=== PATIENT | female | born 1980 | race Hispanic/Latino ===

== ENCOUNTER 2017-11-24 04:16 | Emergency (ER) | payer OTHER ==
--- NOTE | 2017-11-24 04:45 | ER ---
Nurse's Notes [facility] Name: Puja Le Age: 37 yrs Sex: Female : 1980 Arrival Date: 11/24/2017 Time: 04:17 Bed 4 Private MD: Diagnosis: End stage renal disease Presentation: 11/24 04:28 Presenting complaint: Patient states: SOB since 0100. pt stated she was out of town ak1 yesterday and missed dialysis. Transition of care: patient was not received from another setting of care. Onset of symptoms was November 24, 2017. Risk Assessment: Do you want to hurt yourself or someone else? Patient reports no desire to harm self or others. Initial Sepsis Screen: Does the patient meet any 2 criteria? No. Patient's initial sepsis screen is negative. Does the patient have a suspected source of infection? No. Patient's initial sepsis screen is negative. Care prior to arrival: None. 04:28 Method Of Arrival: Wheelchair ak1 04:28 Acuity: KATHRYN 3 ak1 Triage Assessment: 04:31 General: Appears in no apparent distress. Behavior is calm, cooperative. Pain: Denies ak1 pain. EENT: No signs and/or symptoms were reported regarding the EENT system. Neuro: Level of Consciousness is awake, alert, obeys commands, Oriented to person, place, time, situation, [place] are equal bilaterally Moves all extremities. Gait is steady, Speech is normal. Cardiovascular: No deficits noted. Respiratory: Reports shortness of breath at rest Airway is patent Onset: The symptoms/episode began/occurred this morning, the patient has mild shortness of breath. GI: No signs and/or symptoms were reported involving the gastrointestinal system. : No signs and/or symptoms were reported regarding the genitourinary system. Derm: No signs and/or symptoms reported regarding the dermatologic system. Musculoskeletal: No signs and/or symptoms reported regarding the musculoskeletal system. 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 - Social history:: Smoking status: Patient/guardian denies using tobacco. - Ebola Screening: : No symptoms or risks identified at this time. - Family history:: not pertinent. - Hospitalizations: : No recent hospitalization is reported. Screenin:34 Abuse screen: Denies threats or abuse. Denies injuries from another. Nutritional ak1 screening: No deficits noted. Tuberculosis screening: No symptoms or risk factors identified. Fall Risk None identified. Assessment: 04:33 Respiratory: Respiratory effort is even, unlabored. ak1 04:40 Cardiovascular: Rhythm is regular. Respiratory: Airway is patent Breath sounds are ak1 clear. 04:40 Reassessment: Patient appears in no apparent distress at this time. No changes from ak1 previously documented assessment. pt dialysis center has availability at 0500 this morning for her to be seen. Vital Signs: 04:27 BP 131 / 85; Pulse 88; Resp 20; Temp 98.4; Pulse Ox 96% on R/A; Weight 83.91 kg (R); ak1 Height 5 ft. 0 in. (152.40 cm) (R); Pain 0/10; 04:27 Body Mass Index 36.13 (83.91 kg, 152.40 cm) ak1 ED Course: 04:17 Patient arrived in ED. ds1 04:27 Arm band placed on Patient placed in an exam room, on a stretcher, on pulse oximetry, ak1 Patient notified of wait time. 04:29 Gennaro Abbott MD is Attending Physician. rn 04:30 Triage completed. ak1 04:34 Patient has correct armband on for positive identification. Bed in low position. Call ak1 light in reach. Side rails up X 1. Pulse ox on. NIBP on. 04:40 Adrianna Mejía, RN is Primary Nurse. ak1 04:40 No provider procedures requiring assistance completed. Patient did not have IV access ak1 during this emergency room visit. Administered Medications: No medications were administered Outcome: 04:40 Condition: stable ak1 04:44 Discharge ordered by . rn 04:57 Discharged to home ambulatory, with family. ak1 04:57 Discharge instructions given to patient, Instructed on discharge instructions, follow up and referral plans. Demonstrated understanding of instructions, follow-up care. 04:57 Patient left the ED. ak1 Signatures: Seema Weber ds1 Gennaro Abbott MD MD rn Adrianna Mejía, RN RN ak1
--- NOTE | 2017-11-24 04:45 | EDPHYS ---
Physician Documentation [facility] Name: Puja Le Age: 37 yrs Sex: Female : 1980 Arrival Date: 11/24/2017 Time: 04:17 Bed 4 Private MD: ED Physician Gennaro Abbott HPI: 11/24 04:40 This 37 yrs old Female presents to ER via Wheelchair with complaints of rn Shortness Of Breath. 04:40 The patient has shortness of breath with light activity. Onset: The symptoms/episode rn began/occurred today. Duration: The symptoms are intermittent. Severity of symptoms: At their worst the symptoms were mild in the emergency department the symptoms are unchanged. The patient has experienced similar episodes in the past. Reports went out of town, missed dialysis yesterday, feels a little sob, no fever/cough, wasn't able to get into dialysis because full yesterday, thought she could come here for dialysis. . 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 - Social history:: Smoking status: Patient/guardian denies using tobacco. - Ebola Screening: : No symptoms or risks identified at this time. - Family history:: not pertinent. - Hospitalizations: : No recent hospitalization is reported. ROS: 04:40 Constitutional: Negative for fever, chills, and weight loss, Eyes: Negative for injury, rn pain, redness, and discharge, Neck: Negative for injury, pain, and swelling, Cardiovascular: Negative for chest pain, palpitations, and edema, Respiratory: Negative for cough, wheezing, and pleuritic chest pain, Abdomen/GI: Negative for abdominal pain, nausea, vomiting, diarrhea, and constipation, MS/Extremity: Negative for injury and deformity, Neuro: Negative for headache, numbness, tingling, and seizure. Exam: 04:40 Constitutional: This is a well developed, well nourished patient who is awake, alert, rn and in no acute distress. Head/Face: Normocephalic, atraumatic. Eyes: Pupils equal round and reactive to light, extra-ocular motions intact. Lids and lashes normal. Conjunctiva and sclera are non-icteric and not injected. Cornea within normal limits. Periorbital areas with no swelling, redness, or edema. Cardiovascular: Regular rate and rhythm with a normal S1 and S2. No gallops, murmurs, or rubs. Normal PMI, no JVD. No pulse deficits. Respiratory: Lungs have equal breath sounds bilaterally, clear to auscultation and percussion. No rales, rhonchi or wheezes noted. No increased work of breathing, no retractions or nasal flaring. Neuro: Awake and alert, GCS 15, oriented to person, place, time, and situation. Cranial nerves II-XII grossly intact. Motor strength 5/5 in all extremities. Sensory grossly intact. Cerebellar exam normal. Normal gait. Vital Signs: 04:27 BP 131 / 85; Pulse 88; Resp 20; Temp 98.4; Pulse Ox 96% on R/A; Weight 83.91 kg (R); ak1 Height 5 ft. 0 in. (152.40 cm) (R); Pain 0/10; 04:27 Body Mass Index 36.13 (83.91 kg, 152.40 cm) ak1 MDM: 04:29 Patient medically screened. rn 04:40 Differential diagnosis: pulmonary edema. Data reviewed: vital signs, nurses notes. rn 04:42 Counseling: I had a detailed discussion with the patient and/or guardian regarding: the rn historical points, exam findings, and any diagnostic results supporting the discharge/admit diagnosis, the need for outpatient follow up, to return to the emergency department if symptoms worsen or persist or if there are any questions or concerns that arise at home. ED course: Pt got a call from dialysis stating that they have a chair available for her at dialysis center at 0500 ( 17 min), gave patient option, she chooses to leave and get dialysis at her regular dialysis center.. Administered Medications: No medications were administered Disposition: 11/24/17 04:44 Discharged to Home. Impression: End stage renal disease. - Condition is Stable. - Discharge Instructions: End-Stage Kidney Disease. - Medication Reconciliation Form, Thank You Letter, Antibiotic Education, Prescription Opioid Use form. - Follow up: Private Physician; When: As needed; Reason: Recheck today's complaints, Re-evaluation by your physician. - Problem is new. - Symptoms have improved. Signatures: Gennaro Abbott MD MD rn Krenek, Amber, RN RN ak1 Corrections: (The following items were deleted from the chart) 04:57 04:44 11/24/2017 04:44 Discharged to Home. Impression: End stage renal disease. ak1 Condition is Stable. Forms are Medication Reconciliation Form, Thank You Letter, Antibiotic Education, Prescription Opioid Use. Follow up: Private Physician; When: As needed; Reason: Recheck today's complaints, Re-evaluation by your physician. Problem is new. Symptoms have improved. rn
== END 2017-11-24 04:57 | disposition home or self-care (01) ==
LOC: ER 04:16
DX: I12.0 Hypertensive chronic kidney disease with stage 5 chronic kidney disease or end stage renal disease (principal); N18.6 End stage renal disease; Z88.8 Allergy status to other drugs, medicaments and biological substances
CPT/HCPCS: 99283

== ENCOUNTER 2018-01-18 06:09 | Emergency (ER) | payer OTHER ==
[2018-01-18 07:45] LABS: Absolute Monocytes 0.5 K/uL (0.1-1.3); Basophils % 0.4 % (0-1.3); Eosinophils % 2.6 % (0-4.4); Hematocrit 29.5 % (36.0-45.0); Lymphocytes % 9.6 % (15.3-44.8); MCH 31.8 pg (27.0-35.0); MCV 91.1 fL (80-100); MPV 8.2 fL (7.6-11.3); Monocytes % 4.6 % (3.3-12.3); RBC Red Blood Cell Count 3.24 M/uL (3.86-4.86)
[2018-01-18 08:33] LABS: Albumin 3.4 g/dL (3.4-5.0); Bilirubin Direct 0.2 mg/dL (0-0.2); Bilirubin Total 0.6 mg/dL (0.2-1.0); Magnesium 2.7 mg/dL (1.8-2.4); Phosphorus 8.4 mg/dL (2.5-4.9); Potassium 4.9 mmol/L (3.5-5.1); Thyroid Stimulating Hormone 14.5 uIU/mL (0.36-3.74)
--- NOTE | 2018-01-18 09:00 | ER ---
Nurse's Notes [facility] Name: Puja Le Age: 37 yrs Sex: Female : 1980 Arrival Date: 01/18/2018 Time: 06:13 Bed 5 Private MD: Andre Thakur Diagnosis: Hypothyroidism, unspecified;Unspecified abdominal pain Presentation: 01/18 06:24 Presenting complaint: Patient states: she went to dialysis this morning and was c/o bb stomach cramping so they sent her to ED. Transition of care: patient was not received from another setting of care. Onset of symptoms was January 18, 2018 at 05:30. Risk Assessment: Do you want to hurt yourself or someone else? Patient reports no desire to harm self or others. Initial Sepsis Screen: Does the patient meet any 2 criteria? No. Patient's initial sepsis screen is negative. Does the patient have a suspected source of infection? No. Patient's initial sepsis screen is negative. Care prior to arrival: None. 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 - Social history:: Smoking status: Patient/guardian denies using tobacco, Patient/guardian denies using alcohol, street drugs. - Ebola Screening: : No symptoms or risks identified at this time. Screenin:28 Abuse screen: Denies threats or abuse. Denies injuries from another. Nutritional lp1 screening: No deficits noted. Tuberculosis screening: No symptoms or risk factors identified. Fall Risk None identified. Assessment: 06:25 General: Appears in no apparent distress. Behavior is calm, cooperative, appropriate lp1 for age. Pain: Complains of pain in left upper quadrant. Neuro: Level of Consciousness is awake, alert, obeys commands. Cardiovascular: Patient's skin is warm and dry. Dialysis shunt: in the left bicep. Respiratory: Respiratory effort is even, unlabored, Breath sounds are clear bilaterally. GI: Abdomen is non-distended, Bowel sounds present X 4 quads. Patient currently denies diarrhea, nausea, vomiting. : No signs and/or symptoms were reported regarding the genitourinary system. EENT: No signs and/or symptoms were reported regarding the EENT system. Derm: Skin is pink, warm \T\ dry. Musculoskeletal: Circulation, motion, and sensation intact. 07:30 Reassessment: Patient appears in no apparent distress at this time. No changes from tw2 previously documented assessment. Patient and/or family updated on plan of care and expected duration. Pain level reassessed. Patient is alert, oriented x 3, equal unlabored respirations, skin warm/dry/pink. 08:28 Reassessment: Patient appears in no apparent distress at this time. No changes from tw2 previously documented assessment. Patient and/or family updated on plan of care and expected duration. Pain level reassessed. Patient is alert, oriented x 3, equal unlabored respirations, skin warm/dry/pink. 09:03 Reassessment: Patient appears in no apparent distress at this time. No changes from tw2 previously documented assessment. Patient and/or family updated on plan of care and expected duration. Pain level reassessed. Patient is alert, oriented x 3, equal unlabored respirations, skin warm/dry/pink. Vital Signs: 06:26 BP 143 / 79; Pulse 96; Resp 16 S; Temp 98.9(O); Pulse Ox 96% on R/A; Weight 83.91 kg bb (R); Height 5 ft. 0 in. (152.40 cm) (R); Pain 8/10; 07:40 BP 136 / 83; Pulse 79; Resp 17; Pulse Ox 96% on R/A; tw2 08:27 BP 137 / 88; Pulse 80; Resp 17; Pulse Ox 95% on R/A; tw2 09:03 BP 146 / 89; Pulse 82; Resp 16; Pulse Ox 95% on R/A; tw2 06:26 Body Mass Index 36.13 (83.91 kg, 152.40 cm) ED Course: 06:13 Patient arrived in ED. al2 06:13 Andre Thakur DO is Private Physician. al2 06:21 Padmini Saxena FNP-C [facility]. snw 06:21 Julio Shukla MD is Attending Physician. snw 06:23 Trista Dubose, RN is Primary Nurse. lp1 06:25 Triage completed. bb 06:26 Arm band placed on Patient placed in an exam room, on a stretcher, on pulse oximetry. bb 06:28 Patient has correct armband on for positive identification. Placed in gown. Bed in low lp1 position. Call light in reach. Pulse ox on. NIBP on. 07:30 Inserted saline lock: 22 gauge in right antecubital area, using aseptic technique. tw2 Blood collected. 07:39 TS Sent. tw2 07:40 Primary Nurse role handed off by Trista Dubose, RN tw2 07:40 Kiley Hayes, BRIAN is Primary Nurse. tw2 08:59 Andre Thakur DO is Referral Physician. snw 09:21 No provider procedures requiring assistance completed. IV discontinued, intact, tw2 bleeding controlled, No redness/swelling at site. Pressure dressing applied. Administered Medications: No medications were administered Outcome: 09:00 Discharge ordered by . snw 09:21 Discharged to home ambulatory. tw2 09:21 Condition: stable 09:21 Discharge instructions given to patient, Instructed on discharge instructions, follow up and referral plans. medication usage, Demonstrated understanding of instructions, follow-up care, medications, Prescriptions given X 2. 09:22 Patient left the ED. tw2 Signatures: Padmini Saxena, SETTER OUT-C SETTER OUT-Csnw Delia Guido, RN RN bb Trista Dubose, RN RN lp1 Kiley Hayes RN RN tw2 Kady Mccullough
--- NOTE | 2018-01-18 09:01 | EDPHYS ---
Physician Documentation [facility] Name: Puja Le Age: 37 yrs Sex: Female : 1980 Arrival Date: 01/18/2018 Time: 06:13 Bed 5 Private MD: Andre Thakur ED Physician Julio Shukla HPI: 01/18 08:11 This 37 yrs old Female presents to ER via Ambulatory with complaints of snw STOMACH CRAMPING. 08:11 The patient presents with abdominal pain that is diffuse. Onset: The symptoms/episode snw began/occurred gradually. The symptoms do not radiate. Associated signs and symptoms: none. The symptoms are described as crampy. Severity of pain: At its worst the pain was moderate. The patient has experienced similar episodes in the past. Pt sees Dr. Thakur for dialysis, appt with GI tomorrow. Dialysis , , Sat. 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 - Social history:: Smoking status: Patient/guardian denies using tobacco, Patient/guardian denies using alcohol, street drugs. - Ebola Screening: : No symptoms or risks identified at this time. ROS: 08:11 Constitutional: Negative for fever, chills, and weight loss, Eyes: Negative for injury, snw pain, redness, and discharge, ENT: Negative for injury, pain, and discharge, Neck: Negative for injury, pain, and swelling, Cardiovascular: Negative for chest pain, palpitations, and edema, Respiratory: Negative for shortness of breath, cough, wheezing, and pleuritic chest pain, Back: Negative for injury and pain, MS/Extremity: Negative for injury and deformity, Skin: Negative for injury, rash, and discoloration, Neuro: Negative for headache, weakness, numbness, tingling, and seizure. 08:11 Abdomen/GI: Positive for abdominal cramps. 08:11 : Positive for vaginal bleeding. Exam: 07:10 Head/Face: Normocephalic, atraumatic. Eyes: Pupils equal round and reactive to light, snw extra-ocular motions intact. Lids and lashes normal. Conjunctiva and sclera are non-icteric and not injected. Cornea within normal limits. Periorbital areas with no swelling, redness, or edema. ENT: Nares patent. No nasal discharge, no septal abnormalities noted. Tympanic membranes are normal and external auditory canals are clear. Oropharynx with no redness, swelling, or masses, exudates, or evidence of obstruction, uvula midline. Mucous membranes moist. Neck: Trachea midline, no thyromegaly or masses palpated, and no cervical lymphadenopathy. Supple, full range of motion without nuchal rigidity, or vertebral point tenderness. No Meningismus. Chest/axilla: Normal chest wall appearance and motion. Nontender with no deformity. No lesions are appreciated. 07:10 Respiratory: Lungs have equal breath sounds bilaterally, clear to auscultation and percussion. No rales, rhonchi or wheezes noted. No increased work of breathing, no retractions or nasal flaring. Back: No spinal tenderness. No costovertebral tenderness. Full range of motion. MS/ Extremity: Pulses equal, no cyanosis. Neurovascular intact. Full, normal range of motion. Neuro: Awake and alert, GCS 15, oriented to person, place, time, and situation. Cranial nerves II-XII grossly intact. Motor strength 5/5 in all extremities. Sensory grossly intact. Cerebellar exam normal. Normal gait. Psych: Awake, alert, with orientation to person, place and time. Behavior, mood, and affect are within normal limits. 07:10 Constitutional: The patient appears alert, awake, pale. 07:10 Cardiovascular: Rate: tachycardic, Rhythm: regular. 07:10 Abdomen/GI: Inspection: obese Bowel sounds: diminished, Palpation: mild abdominal tenderness, crampy, organomegaly is appreciated. Vital Signs: 06:26 BP 143 / 79; Pulse 96; Resp 16 S; Temp 98.9(O); Pulse Ox 96% on R/A; Weight 83.91 kg bb (R); Height 5 ft. 0 in. (152.40 cm) (R); Pain 8/10; 07:40 BP 136 / 83; Pulse 79; Resp 17; Pulse Ox 96% on R/A; tw2 08:27 BP 137 / 88; Pulse 80; Resp 17; Pulse Ox 95% on R/A; tw2 09:03 BP 146 / 89; Pulse 82; Resp 16; Pulse Ox 95% on R/A; tw2 06:26 Body Mass Index 36.13 (83.91 kg, 152.40 cm) bb MDM: 06:21 Patient medically screened. snw 09:02 Data reviewed: vital signs, nurses notes. Data interpreted: Pulse oximetry: on room air snw is 95 %. Interpretation: acceptable. Counseling: I had a detailed discussion with the patient and/or guardian regarding: the historical points, exam findings, and any diagnostic results supporting the discharge/admit diagnosis, the presence of at least one elevated blood pressure reading (>120/80) during this emergency department visit, lab results, the need for outpatient follow up, to return to the emergency department if symptoms worsen or persist or if there are any questions or concerns that arise at home. 01/18 07:06 Order name: Basic Metabolic Panel; Complete Time: 08:57 snw 01/18 07:06 Order name: CBC with Diff; Complete Time: 08:01 snw 01/18 07:06 Order name: Hepatic Function; Complete Time: 08:57 snw 01/18 07:06 Order name: Lipase; Complete Time: 08:57 snw 01/18 07:06 Order name: Magnesium; Complete Time: 08:57 snw 01/18 07:06 Order name: IV Saline Lock; Complete Time: 07:39 snw 01/18 07:06 Order name: Labs collected and sent; Complete Time: 07:39 snw 01/18 07:06 Order name: Phosphorus; Complete Time: 08:57 snw 01/18 07:06 Order name: TS; Complete Time: 08:57 snw 01/18 07:06 Order name: TSH; Complete Time: 08:57 snw 01/18 08:36 Order name: T4 Free; Complete Time: 08:57 EDMS 01/18 08:47 Order name: ABO/RH no charge; Complete Time: 08:57 EDMS 01/18 07:06 Order name: Urine Dipstick-Ancillary (obtain specimen); Complete Time: 09:09 snw Administered Medications: No medications were administered Disposition: 01/18/18 09:00 Discharged to Home. Impression: Hypothyroidism, unspecified, Unspecified abdominal pain. - Condition is Stable. - Discharge Instructions: Abdominal Pain, Adult, Hypertension, Hypothyroidism. - Prescriptions for Synthroid 100 mcg Oral tablet - take 30 tablet by ORAL route once daily; 30 tablet. Bentyl 20 mg Oral Tablet - take 1 tablet by ORAL route every 6 hours As needed; 20 tablet. - Medication Reconciliation Form, Thank You Letter, Antibiotic Education, Prescription Opioid Use form. - Follow up: Andre Thakur DO; When: Today; Reason: Recheck today's complaints, Continuance of care, Re-evaluation by your physician. Follow up: Emergency Department; When: As needed; Reason: Worsening of condition. Signatures: Dispatcher [employer] EDMS Padmini Saxena, LASHELL-C BRONZER-Csnw Delia Guido, RN RN bb Kiley Hayes RN RN tw2 Corrections: (The following items were deleted from the chart) 09: 09:00 01/18/2018 09:00 Discharged to Home. Impression: Hypothyroidism, unspecified; tw2 Unspecified abdominal pain. Condition is Stable. Forms are Medication Reconciliation Form, Thank You Letter, Antibiotic Education, Prescription Opioid Use. Follow up: Andre Thakur; When: Today; Reason: Recheck today's complaints, Continuance of care, Re-evaluation by your physician. Follow up: Emergency Department; When: As needed; Reason: Worsening of condition. snw
== END 2018-01-18 09:22 | disposition home or self-care (01) ==
LOC: ER 06:09
DX: E03.9 Hypothyroidism, unspecified (principal); I10 Essential (primary) hypertension; Z99.2 Dependence on renal dialysis; Z88.8 Allergy status to other drugs, medicaments and biological substances
CPT/HCPCS: 36415; 80048; 80076; 83690; 83735; 84100; 84439; 84443; 85025; 86850; 86900; 86901; 99284

== ENCOUNTER 2018-12-05 12:53 | Inpatient (IN) | payer OTHER ==
--- OUTSIDE RECORDS SUMMARY | 2018-12-05 12:57 | XMS REPORT | Continuity of Care Document ---
:1980 Author Organization Interface Problems Problem Status Onset Classification Date Comments Source Date Reported NEW EVALUATION Active 10/15/[address] RENAL/DO NOT USE Active 09/15/19 [facility] FOR CHARGES F/C 19 Medical NOTES O Center CHF (<span Resolved Problem 11/19/2018 [facility] ID="[id number]"> Medical Confirmed</span>) Center Hypertension Resolved Problem 11/19/2018 [facility] Hyperthyroidism Resolved Problem 11/19/2018 [facility] Pleural effusion Resolved Problem 11/19/2018 [facility] 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 [facility] Restless leg Resolved Problem 11/19/2018 [facility] syndrome [facility] Medications Medication Details Route Status Patient Ordering Order Source Instructions Provider Date Allergies, Adverse Reactions, Alerts Substance Category Reaction Severity Reaction Status Date Comments Source type Reported vancomycin Assertion Drug Active [facility] Zosyn Assertion Drug Active [facility] Immunizations Immunization Date Given Site Status Last Updated Comments Source Results Order Name Results Value Reference Date Interpretation Comments Source Range HEMATOLOGY AT III Ag 132 % 72 - 124 10/19 Result Comment: This test was developed and its performance characteristics determined by [facility]. It has not been cleared or Medical approved by the Food and Drug Administration. Center Performed At: [address] [id number] Ezequiel Cornejo MD Ph:[phone] HEMATOLOGY MTHFR DNA Comment 10/19 Result Comment: [facility] Result: NEGATIVE (No mutation identified) Medical Analysis Interpretation: Center This patient's sample was analyzed for the MTHFR mutations C677T and R7511E. No mutation was identified. The diagnosis of hyperhomocysteinemia can not rely on testing alone but should take into consideration clinical findings and other studies, such as serum homocysteine levels. Methylenetetrahydrofolate reductase (MTHFR) is a tamayo enzyme in the folate pathway and is responsible for the metabolism of homocysteine. There are two common variants in the MTHFR gene, c.655c>T (p.Jto024Trgw), referred to as C677T, and c.1286A>C (p.Mkd843Rmu), referred to as K7390Z. Individuals homozygous for C677T (two copies of the variant), have decreased activity of the MTHFR enzyme and a predisposition to hyperhomocysteinemia, particularly when deficient in folate. Hyperhomocysteinemia is a risk factor for venous thrombosis and coronary artery disease and is associated with an increased risk of open neural tube defects. The C677T variant does not independently increase risk of these conditions in the absence of hyperhomocysteinemia. The T2494Q variant is not associated with elevated homocysteine levels unless a C677T variant is also present ; however, the clinical significance of heterozygosity for both C677T and I9689P is controversial. Population data suggest that these two variants are not present on the same chromosome, but rare exceptions have been reported of triple variant MTHFR genotypes (ie. homozygous for one variant and heterozygous for the other). Homozygosity for C677T has an estimated frequency of 10% to 15% in Caucasians and 25 % in Hispanics. Additional information: Dietary folic acid, B6 and B12 supplementation has been suggested to lower homocysteine levels in some people. Folic acid supplementation has been shown to reduce the occurrence of neural tube defects. Genetic counselors are available for health care providers to discuss results at [phone] Methodology: DNA analysis of the MTHFR gene was performed by PCR amplification followed by restriction analysis. The diagnostic sensitivity is >99% for both. Molecular-based testing is highly accurate, but as in any laboratory test, rare diagnostic errors may occur. All test results must be combined with clinical information for the most accurate interpretation. This test was developed and its performance characteristics determined by [facility]. It has not been cleared or approved by the Food and Drug Administration. References: Fawad LD, Gale Q. Am J Epidemiol 2000; 151(9):862-877. Honey MM, Kavya JA. Arch Pathol Lab Med 2007; 131(6):872-884. Frosst P et al. Monica Cristin 1995; 10(1):111-113. Kezia SE et al. Cristin Med 2013; 15(2):153-156. Boise C et al. Obstet Gynecol 2011; 118(3):730-740. Bradley Arias et al. Eur J Epidemiol 2013; 28(8):621-647. Nilda Oliveira, PhD, FACMG Princess Meyer, PhD, FACMG Samantha Whipple M.S., PhD, FACMG Yael Nicholson, PhD, FACMG Marc Campos, PhD, FACMG Forrest Shelley, PhD, FACMG Performed At: [facility] [id number] [employer] [address] [id number] Luna Barrientos MD Ph:[phone] HEMATOLOGY Protein S Tot 113 % 60 - 150 10/19 Result Comment: This test was developed and its performance characteristics determined by [facility]. It has not been cleared or Medical approved by the Food and Drug Administration. Center Performed At: [address] [id number] Ezequiel Cornejo MD Ph:[phone] HEMATOLOGY Hex Phos N Negative Negative 10/19 [facility] (10/19/18 8:19 AM) [facility] HEMATOLOGY Lup Interp Negative 10/19 [facility] lupus Medical anticoagul Center ant with all tests performed (dRVVT, and hexagonal phospholip id neutraliza tion). CPT: 39132 HEMATOLOGY dRVV Ratio 1.12 <=1.20 10/19 [facility] HEMATOLOGY Protein C Tot 101 % 60 - 150 10/19 Result Comment: Performed At: [facility] [address] [place] [id number] [facility] Ezequiel Cornejo MD Ph:[phone] [facility] HEMATOLOGY F2 Mutation Negative 10/19 [place] [facility] (10/19/18 8:19 AM) Center HEMATOLOGY F2 Mut Interp FACTOR II 10/19 [facility] PT: /2018 Medical NegativeIN Center TERPRETATI ON:Molecul ar analysis for the Factor II (Prothromb in) 52489Q>A mutation is negative. Other causes of elevated prothrombi n levels and hereditary forms of venous thrombosis are not ruled out.The test result must be interprete d along with the patients clinical history and relevant laboratory data. Where appropriat e, medical consultati on and genetic counseling should be offered to inform and explain the risk implicatio ns and genetic implicatio nsASSAY LIMITATION S:The Candy Nayan assay uses FDA-cleare d Real time Polymerase chain reaction (PCR) reagents for the detection and genotyping of the human Factor II (Prothromb in) [id number] mutation. The assay will amplify a 173 base pair fragment of Factor II Gene (FII) containing the Factor II A54583C sequence. The assay is designed to detect the [id number] mutation only. Other causes of elevated prothrombi n levels and hereditary forms of venous thromboses are not ruled out. The presence of PCR inhibitors may cause invalid results. performanc e characteri stics of this assay were validated by the [facility] within [facility]. The Molecular Diagnostic Laboratory is authorized under the Clinical Laboratory Improvemen t Amendments of 1988 (CLIA-88) to perform high complexity testing. HEMATOLOGY AT [facility] 131 % 77 - 140 10/19 [facility] Center HEMATOLOGY F5 Leiden PCR Negative 10/19 [facility] (10/19/18 8:19 AM) [facility] HEMATOLOGY F5 Leiden FACTOR V 10/19 [facility] Intrp LEI [facility] NegativeIN [facility] TERPRETA ON:Molecul ar analysis for the Factor V Leiden P9450A mutation is negative. Other causes of activated protein C resistance and hereditary forms of venous thrombosis are not ruled out.The test result must be interprete d along with the patients clinical history and relevant laboratory data. Where appropriat e, medical consultati on and/or genetic counseling should be offered to inform and explain the risk implicatio ns and genetic implicatio ns of these test results. SAY LIMITATION S:The Candy nayan assay uses the FDA-cleare d real time polymerase chain reaction (PCR) reagents for the detection and genotyping of the human Factor V Leiden F0798L mutation. The assay will amplify a 233 base pair fragment of Factor V gene (FV)contai long the Factor V Leiden M1571T sequence. The assay is designed to detect the L8716M mutation only. Other causes of activated protein C resistance and hereditary forms of venous thrombosis are not ruled out. The presence of PCR inhibitors may cause invalid results. performanc e characteri stics of this assay were validated by the [facility] within [facility]. The Molecular Diagnostic Laboratory is authorized under the Clinical Laboratory Improvemen t Amendments of 1988 (CLIA-88) to perform high complexity testing IMMUNOLOGY Rubella IgG null >=10.0 10/19 [facility] IU/mL [facility] IMMUNOLOGY Mumps IgG 2.6 AI <=0.8 AI 10/19 [facility] IMMUNOLOGY Rubeola IgG 2.5 AI <=0.8 AI 10/19 [facility] URINE AND UA RBC 26 /HPF 0 - 2 10/19 [facility] URINE AND UA WBC 25 /HPF 0 - 5 10/19 [facility] URINE AND UA Mucus Few /LPF None Seen 10/19 [facility] STOOL /LPF [facility] URINE AND UA Bacteria Occasional None Seen 10/19 [facility] STOOL /HPF /HPF [facility] URINE AND UA Sq Epi Many /LPF Few /LPF 10/19 [facility] URINE AND UA Spec Grav 1.020 <=1.030 10/[address] URINE AND UA Turbidity Slight Clear 10/19 [facility] *ABN* [facility] (10/19/18 8:19 AM) URINE AND UA Color Adrianna Yellow 10/19 [facility] *ABN* [facility] (10/19/18 8:19 AM) URINE AND UA Leuk Est Negative Negative 10/19 [facility] (10/19/18 8:19 AM) [facility] URINE AND UA pH >=9.0 5.0 - 8.0 10/19 [facility] *ABN* [facility] (10/19/18 8:19 AM) URINE AND UA Protein >=300 Negative 10/19 [facility] mg/dL mg/dL [facility] URINE AND UA Bili Negative Negative 10/19 [facility] *NA* [facility] (10/19/18 8:19 AM) URINE AND UA Glucose 500 mg/dL Negative 10/19 [facility] mg/dL [facility] URINE AND UA Ketones Trace Negative 10/19 [facility] *ABN* [facility] (10/19/18 8:19 AM) URINE AND UA Nitrite Negative Negative 10/19 [facility] (10/19/18 8:19 AM) [facility] URINE AND UA null 0.1 - 1.0 10/19 [facility] Urobilinogen [facility] URINE AND UA Blood Small Negative 10/19 [facility] *ABN* Center (10/19/18 8:19 AM) URINE CHEM U Alb 48939.0 10/19 [facility] mg/L [facility] URINE CHEM U Prot/Creat 81.18 10/19 [facility] URINE CHEM U Creatinine 29.80 10/19 [facility] mg/dL [facility] URINE CHEM U Protein 2419.3 10/19 [facility] mg/dL [facility] BLOOD BANK ABO/RH B POS 09/14 [facility] RESULTS [facility] ANEMIA TIBC 214 ug/dl 228 - 428 09/14 [facility] ANEMIA Iron 63 ug/dl 30 - 160 09/14 [facility] ANEMIA UIBC 151 ug/dl 110 - 370 09/14 [facility] ANEMIA % Satur Fe 29 % 12 - 57 09/14 [facility] ANEMIA Ferritin Lvl 1294 ng/mL 5 - 204 09/14 [facility] BLOOD BANK OP ABORh Int B POS 09/14 [facility] CHEM PANEL Magnesium Lvl 2.3 mg/dL 1.8 - 2.4 09/14 [facility] CHEM PANEL A/G Ratio 0.8 0.7 - 1.6 09/14 [facility] CHEM PANEL Globulin 4.4 g/dL 2.7 - 4.2 09/14 [facility] CHEM PANEL B/C Ratio 6 6 - 25 09/14 [facility] CHEM PANEL AGAP 14.1 meq/L 10.0 - 09/14 [facility] 20.0 [facility] CHEM PANEL eGFR 8 09/14 Result Comment: The eGFR is calculated using the CKD-EPI formula. In most young, healthy individuals the eGFR will be >90 mL/ min/1.73m2. The eGFR declines with age. An eGFR of 60-89 may be normal in [facility] mL/min/1.7 some populations, particularly the elderly, for whom the CKD-EPI formula has not been extensively validated. Use of the eGFR is not recommended in the following populations: [address] Individuals with unstable creatinine concentrations, including patients and those with serious co-morbid conditions. Patients with extremes in muscle mass or diet. The data above are obtained from the National Kidney Disease Education Program (NKDEP) which additionally recommends that when the eGFR is used in patients with extremes of body mass index for purposes of drug dosing, the eGFR should be multiplied by the estimated BMI. CHEM PANEL Bili Total 1.1 mg/dL 0.2 - 1.3 09/14 2018 [facility] CHEM PANEL Calcium Lvl 9.1 mg/dL 8.5 - 10.5 09/14 [facility]2018 [facility] CHEM PANEL Total Protein 8.0 g/dL 6.4 - 8.4 09/14 [facility]2018 [facility] CHEM PANEL Albumin Lvl 3.6 g/dL 3.5 - 5.0 09/[address] CHEM PANEL CO2 31 meq/L 24 - 32 09/14 [facility]2018 [facility] CHEM PANEL ALT 26 unit/L 0 - 65 09/[address] CHEM PANEL Creatinine 5.81 mg/dL 0.50 - 09/14 [facility] Lvl 1.40 [facility] CHEM PANEL Alk Phos 247 unit/L 39 - 136 09/[address] CHEM PANEL AST 32 unit/L 0 - 37 09/[address] CHEM PANEL Sodium Lvl 138 meq/L 135 - 145 09/[address] CHEM PANEL Potassium Lvl 4.1 meq/L 3.5 - 5.1 09/[address] CHEM PANEL Chloride Lvl 97 meq/L 95 - 109 09/[address] CHEM PANEL Glucose Lvl 102 mg/dL 70 - 99 09/[address] CHEM PANEL BUN 34 mg/dL 7 - 22 09/[address] CHEM PANEL Phosphorus 6.2 mg/dL 2.5 - 4.5 09/[address] CHEM PANEL Uric Acid 4.7 mg/dL 2.5 - 7.0 09/14 [facility]2018 [facility] CHEM PANEL Vitamin D, 12.7 ng/mL 30.0 - 09/14 [facility] 25-OH, Total 100.0 [facility] DRUG SCREEN Opiate Scr Negative Negative 09/14 Result Comment: Medical ScrCutoff:20 Center ng/mL DRUG SCREEN Amph Scr Negative Negative 09/14 Result Comment: Medical ScrCutoff:20 Center ng/mL DRUG SCREEN Benzodiaz Scr Negative Negative 09/14 Result Comment: Medical ScrCutoff:20 Center ng/mL DRUG SCREEN 6-Acetylmor Negative Negative 09/14 Result Comment: Medical ScrCutoff:300 Center ng/mL DRUG SCREEN Cocaine Scr Negative Negative 09/14 Result Comment: Medical ScrCutoff:20 Center ng/mL DRUG SCREEN Phencyclidine Negative Negative 09/14 Result Comment: Medical ScrCutoff:25 Center ng/mL DRUG SCREEN Methadone Scr Negative Negative 09/14 Result Comment: Medical ScrCutoff:20 Center ng/mL DRUG SCREEN Cannab Scr Negative Negative 09/14 Result Comment: Medical ScrCutoff:1 Center ng/mL DRUG SCREEN Tanisha Scr Negative Negative 09/14 Result Comment: Medical ScrCutoff:20 Center ng/mL ENDOCRINOLO S Preg Negative Negative 09/14 Medical *NA* Center (09/14/18 7:28 AM) HEMATOLOGY INR 1.15 0.85 - 09/14 [facility] 1. [facility] HEMATOLOGY PTT 37.3 s 22.9 - 09/14 [facility] 35.8 [facility] HEMATOLOGY PT 14.5 s 12.0 - 09/14 [facility] 14.7 [facility] HEMATOLOGY MPV 8.7 fL 7.4 - 10.4 09/14 [facility] HEMATOLOGY MCHC 33.2 g/dL 32.0 - 09/14 [facility] 36.0 [facility] HEMATOLOGY Platelet 149 K/CMM 133 - 450 09/14 [facility] HEMATOLOGY RDW 15.7 % 11.5 - 09/14 [facility] 14.5 [facility] HEMATOLOGY MCV 90.0 fL 80.0 - 09/14 [facility] 98.0 [facility] HEMATOLOGY Hct 35.6 % 36.0 - 09/14 [facility] 48.0 [facility] HEMATOLOGY MCH 29.9 pg 27.0 - 09/14 [facility] 31.0 [facility] HEMATOLOGY Hgb 11.8 g/dL 12.0 - 09/14 16.0 [facility] HEMATOLOGY RBC 3.95 M/CMM 4.20 - 09/14 [place] 5.40 [facility] HEMATOLOGY WBC 7.6 K/CMM 3.7 - 10.4 09/[address] HEMATOLOGY Basophils # 0.1 K/CMM 0.0 - 0.2 09/[address] HEMATOLOGY Monocytes # 0.5 K/CMM 0.0 - 0.8 09/[address] HEMATOLOGY Eosinophils # 0.3 K/CMM 0.0 - 0.5 09/[address] HEMATOLOGY Lymphocytes 15.4 % 20.0 - 09/14 [facility] 40.0 [facility] HEMATOLOGY Segs 72.5 % 45.0 - 09/14 [facility] 75.0 [facility] HEMATOLOGY Lymphocytes # 1.2 K/CMM 1.0 - 5.5 09/[address] HEMATOLOGY Monocytes 6.5 % 2.0 - 12.0 09/[address] HEMATOLOGY Eosinophils 4.4 % 0.0 - 4.0 09/[address] HEMATOLOGY Basophils 1.2 % 0.0 - 1.0 09/[address] HEMATOLOGY Neutrophils # 5.5 K/CMM 1.5 - 8.1 09/[address] IMMUNOLOGY Varicella IgM null 0.00 - 09/14 Result Comment: Negative <0.91 [facility] 0.90 Borderline 0.91 - 1.09 Medical Positive >1.09 Center Performed At: [facility] [address] [id number] Ezequiel oCrnejo MD Ph:[phone] IMMUNOLOGY Varicella IgG 2.7 AI <=0.8 AI 09/[address] IMMUNOLOGY Treponemal Ab Non-Reactive Non 09/14 [facility] *NA* [facility] (09/14/18 7:28 AM) IMMUNOLOGY T-Spot.TB Negative Negative 09/14 [facility] (09/14/18 7:28 AM) [facility] IMMUNOLOGY HSV 1 IgG null <=0.8 AI 09/[address] IMMUNOLOGY HSV 2 IgG null <=0.8 AI 09/[address] IMMUNOLOGY HIV Ag/Ab 4th Negative Negative 09/14 [facility] *NA* [facility] (09/14/18 7:28 AM) IMMUNOLOGY EBV VCA IgG null <=0.8 AI 09/14 [facility] IMMUNOLOGY Hep C Ab Negative 09/14 [facility] *NA* Center (09/14/18 7:28 AM) IMMUNOLOGY Hep Bs Ag Negative Negative [facility]09[facility]14[facility]18 7:28 AM) IMMUNOLOGY Hep B Core Ab Negative Negative 09/14 [facility] (09/14/18 7:28 AM) IMMUNOLOGY EBV VCA IgM null <=0.8 AI 09/14 [facility] IMMUNOLOGY Hep Bs Ab 426.1 <=7.4 09/14 [facility] mIU/mL mIU/mL [facility] IMMUNOLOGY CMV IgM 0.2 S/CO 09/14 [facility] Ratio [facility] IMMUNOLOGY CMV IgG Non Reactive Non 09/14 [facility] Reactive [facility] (09/14/18 7:28 AM) LIPIDS VLDL 22 09/14 [facility]2018 [facility] LIPIDS LDL 80 mg/dL <=99 mg/dL 09/14 [facility] (Calculated) [facility] LIPIDS HDL 50 mg/dL >=61 mg/dL 09/14 [facility] LIPIDS Chol 152 mg/dL <=199 09/14 [facility] mg/dL [facility] LIPIDS Trig 110 mg/dL <=149 09/14 [facility] mg/dL [facility] LIPIDS CHD Risk 3.04 3.90 - 09/14 [facility] 5.80 [facility] PARASITOLOG Strongyloides Negative Negative 09/14 Result Comment: [facility]formed At[facility] [address] [place], [place] [id number] Medical SEROLOGY Ezequiel Cornejo MD Ph:[phone] [facility] PARATHYROID PTH Intact 75.1 pg/mL 18.4 - 09/14 [facility] PROFILE 80.1 [facility] SPECIAL Hgb A1C 4.9 % <=5.6 % 09/14 [facility] CHEMISTRY /2018 [facility] SPECIAL Cotinine Lvl None 09/14 Result Comment: This test was developed and its performance characteristics [facility] CHEMISTRY determined by [facility]. It has not been cleared or Medical approved by the Food and Drug Administration. Center Cotinine levels greater than 20.0 are consistent with the use of tobacco or tobacco cessation products. Performed At: [facility] [address] [id number] Ezequiel Cornejo MD Ph:[phone] SPECIAL Nicotine Lvl None 09/14 Result Comment: This test was developed and its performance characteristics [facility] CHEMISTRY determined by [facility]. It has not been cleared or Medical approved by the Food and Drug Administration. Center Nicotine levels greater than 2.0 are consistent with the use of tobacco or tobacco cessation products. Vital Signs Vital Sign Value Date Comments Source BMI Calculated 37.09 10/19/2018 [facility] Systolic (mm Hg) 163 10/19/2018 [facility] Diastolic (mm Hg) 91 10/19/2018 [facility] Height 146.5 cm 10/19/2018 [facility] Weight 79.6 10/19/2018 [facility] Respitory Rate 19 10/19/2018 [facility] Heart Rate 76 10/19/2018 [facility] BMI Calculated 39.24 09/14/2018 [facility] Height 147 cm 09/14/2018 [facility] Weight 84.8 09/14/2018 [facility] Encounters Location Location Encounter Encounter Reason Attending ADM DC Status Source Details Type Number For Provider Date Date Visit Transplant OP [id number] Macie 09/14 10/14 [facility] Transplant 1 [facility] Pre Transplant OP [id number] Macie 10/19 11/18 [facility] Transplant 2 De [facility] Pre Procedures Procedure Code Date Perfomer Comments Source section [id number] [facility]
--- OUTSIDE RECORDS SUMMARY | 2018-12-05 12:58 | XMS REPORT | Summary of Care ---
:1980 Author Organization [facility] Address [address] [place], [place] [address]- Encounter HQ Dorothy_winston(FIN) [id number] Date(s): 09/14/18 - 10/13/[address] [place] [address]- [phone] Discharge Disposition: Home or Self Care Attending Physician: Macie Padgett MD Referring Physician: Macie Padgett MD Vital Signs Most recent to oldest [Reference Range]: 1 Height 147 cm (09/14/18 7:43 AM) Weight 84.8 kg (09/14/18 7:43 AM) Body Mass Index 39.24 m2 (09/14/18 7:43 AM) Problem List Condition Effective Dates Status Health Status Informant CHF (congestive heart Resolved failure)(Confirmed) Hypertension(Confirmed) Resolved Hyperthyroidism(Confirmed) Resolved Pleural effusion(Confirmed) Resolved Renal osteodystrophy(Confirmed) Resolved Restless leg syndrome(Confirmed) Resolved Allergies, Adverse Reactions, Alerts Substance Reaction Severity Status vancomycin Active Zosyn Active Medications No Known Medications Results BLOOD BANK RESULTS Most recent to oldest [Reference Range]: 1 ABO/RH Confirm B POS *Unknown* (09/14/18 7:34 AM) ABORH B POS *Unknown* (09/14/18 7:28 AM) ELECTROLYTES Most recent to oldest [Reference Range]: 1 Sodium Lvl [135-145 mEq/L] 138 mEq/L (09/14/18 7:28 AM) Potassium Lvl [3.5-5.1 mEq/L] 4.1 mEq/L (09/14/18 7:28 AM) Chloride Lvl [95-109 mEq/L] 97 mEq/L (09/14/18 7:28 AM) CO2 [24-32 mEq/L] 31 mEq/L (09/14/18 7:28 AM) AGAP [10.0-20.0 mEq/L] 14.1 mEq/L (09/14/18 7:28 AM) CHEM PANEL Most recent to oldest [Reference Range]: 1 Creatinine Lvl [0.50-1.40 mg/dL] 5.81 mg/dL *HI* (09/14/18 7:28 AM) eGFR 8 mL/min/1.73m2 1 *NA* (09/14/18 7:28 AM) BUN [7-22 mg/dL] 34 mg/dL *HI* (09/14/18 7:28 AM) B/C Ratio [6-25] 6 (09/14/18 7:28 AM) Glucose Lvl [70-99 mg/dL] 102 mg/dL *HI* (09/14/18 7:28 AM) Uric Acid [2.5-7.0 mg/dL] 4.7 mg/dL (09/14/18 7:28 AM) Total Protein [6.4-8.4 g/dL] 8.0 g/dL (09/14/18 7:28 AM) Albumin Lvl [3.5-5.0 g/dL] 3.6 g/dL (09/14/18 7:28 AM) Globulin [2.7-4.2 g/dL] 4.4 g/dL *HI* (09/14/18 7:28 AM) A/G Ratio [0.7-1.6] 0.8 (09/14/18 7:28 AM) Calcium Lvl [8.5-10.5 mg/dL] 9.1 mg/dL (09/14/18 7:28 AM) Phosphorus [2.5-4.5 mg/dL] 6.2 mg/dL *HI* (09/14/18 7:28 AM) Magnesium Lvl [1.8-2.4 mg/dL] 2.3 mg/dL (09/14/18 7:28 AM) ALT [0-65 unit/L] 26 unit/L (09/14/18 7:28 AM) AST [0-37 unit/L] 32 unit/L (09/14/18 7:28 AM) Alk Phos [39-136 unit/L] 247 unit/L *HI* (09/14/18 7:28 AM) Bili Total [0.2-1.3 mg/dL] 1.1 mg/dL (09/14/18 7:28 AM) Vitamin D, 25-OH, Total [30.0-100.0 ng/mL] 12.7 ng/mL *LOW* (09/14/18 7:28 AM) 1Result Comment: The eGFR is calculated using the CKD-EPI formula. In most young , healthy individualsthe eGFR will be >90 mL/min/1.73m2. The eGFR declines with age. An eGFR of 60-89 may be normal insome populations, particularly the elderly, for whom the CKD-EPI formula has not been extensively validated. Use of the eGFR is not recommended in the following populations: Individuals with unstable creatinine concentrations, including patients and those with serious co-morbid conditions. Patients with extremes in muscle mass or diet. The data above are obtained from the National Kidney Disease Education Program ( NKDEP) which additionally recommends that when the eGFR is used in patients with extremes of body mass index for purposesof drug dosing, the eGFR should be multiplied by the estimated BMI.LIPIDS Most recent to oldest [Reference Range]: 1 CHD Risk [3.90-5.80] 3.04 *LOW* (09/14/18 7:28 AM) Chol [<=199 mg/dL] 152 mg/dL (09/14/18 7:28 AM) Trig [<=149 mg/dL] 110 mg/dL (09/14/18 7:28 AM) HDL [>=61 mg/dL] 50 mg/dL *LOW* (09/14/18 7:28 AM) LDL (Calculated) [<=99 mg/dL] 80 mg/dL (09/14/18 7:28 AM) VLDL 22 *NA* (09/14/18 7:28 AM) SPECIAL CHEMISTRY Most recent to oldest [Reference Range]: 1 Hgb A1C [<=5.6 %] 4.9 % (09/14/18 7:28 AM) Nicotine Lvl None Detected 1 *NA* (09/14/18 7:28 AM) Cotinine Lvl None Detected 2 *NA* (09/14/18 7:28 AM) 1Result Comment: This test was developed and its performance characteristics determined by [facility]. It has not been cleared or approved by the Food and Drug Administration. Nicotine levels greater than 2.0 are consistent with the use of tobacco or tobacco cessation products.2Result Comment: This test was developed and its performance characteristics determined by [facility]. It has not been cleared or approved by the Food and Drug Administration. Cotinine levels greater than 20.0 are consistent with the use of tobacco or tobacco cessation products. Performed At: [facility] [id number] Ezequiel Cornejo MD Ph:[phone] STUDY Most recent to oldest [Reference Range]: 1 Iron [30-160 ug/dl] 63 ug/dl (09/14/18 7:28 AM) Ferritin Lvl [5-204 ng/mL] 1294 ng/mL *HI* (09/14/18 7:28 AM) % Satur Fe [12-57 %] 29 % (09/14/18 7:28 AM) UIBC [110-370 ug/dl] 151 ug/dl (09/14/18 7:28 AM) TIBC [228-428 ug/dl] 214 ug/dl *LOW* (09/14/18 7:28 AM) PARATHYROID PROFILE Most recent to oldest [Reference Range]: 1 PTH Intact [18.4-80.1 pg/mL] 75.1 pg/mL (09/14/18 7:28 AM) DRUG SCREEN Most recent to oldest [Reference Range]: 1 Amph Scr [Negative] Negative 1 *NA* (09/14/18 7:28 AM) Tanisha Scr [Negative] Negative 2 *NA* (09/14/18 7:28 AM) Benzodiaz Scr [Negative] Negative 3 *NA* (09/14/18 7:28 AM) Cannab Scr [Negative] Negative 4 *NA* (09/14/18 7:28 AM) Cocaine Scr [Negative] Negative 5 *NA* (09/14/18 7:28 AM) Methadone Scr [Negative] Negative 6 *NA* (09/14/18 7:28 AM) Opiate Scr [Negative] Negative 7 *NA* (09/14/18 7:28 AM) Phencyclidine Scr [Negative] Negative 8 *NA* (09/14/18 7:28 AM) 6-Acetylmor Scr [Negative] Negative 9 *NA* (09/14/18 7:28 AM) 1Result Comment: ScrCutoff:20 ng/yY6Jwxugv Comment: ScrCutoff:20 ng/vD2Hhqgoy Comment: ScrCutoff:20 ng/vU2Howemg Comment: ScrCutoff:1 ng/wM5Liaevf Comment: ScrCutoff:20 ng/tP4Brfqyk Comment: ScrCutoff:20 ng/nB6Cajicz Comment: ScrCutoff: 20 ng/qR2Djlefo Comment: ScrCutoff:25 ng/sZ4Kjiham Comment: ScrCutoff:300 ng/ mLENDOCRINOLOGY Most recent to oldest [Reference Range]: 1 S Preg [Negative] Negative *NA* (09/14/18 7:28 AM) IMMUNOLOGY Most recent to oldest [Reference Range]: 1 Treponemal Ab [Non-Reactive] Non-Reactive *NA* (09/14/18 7:28 AM) CMV IgG [Non Reactive] Non Reactive *NA* (09/14/18 7:28 AM) CMV IgM 0.2 S/CO Ratio *NA* (09/14/18 7:28 AM) EBV VCA IgG [<=0.8 AI] >8.0 AI *HI* (09/14/18 7:28 AM) EBV VCA IgM [<=0.8 AI] <0.2 AI (09/14/18 7:28 AM) Varicella IgG [<=0.8 AI] 2.7 AI *HI* (09/14/18 7:28 AM) Varicella IgM [0.00-0.90 INDEX] <0.91 INDEX 1 *NA* (09/14/18 7:28 AM) HIV Ag/Ab 4th Gen [Negative] Negative *NA* (09/14/18 7:28 AM) T-Spot.TB [Negative] Negative (09/14/18 7:28 AM) HSV 1 IgG [<=0.8 AI] >8.0 AI *HI* (09/14/18 7:28 AM) HSV 2 IgG [<=0.8 AI] <0.2 AI (09/14/18 7:28 AM) Hep Bs Ag [Negative] Negative *NA* (09/14/18 7:28 AM) Hep Bs Ab [<=7.4 mIU/mL] 426.1 mIU/mL *HI* (09/14/18 7:28 AM) Hep B Core Ab [Negative] Negative *NA* (09/14/18 7:28 AM) Hep C Ab Negative *NA* (09/14/18 7:28 AM) 1Result Comment: Negative <0.91 Borderline 0.91 - 1.09 Positive >1.09 Performed At: [facility] [address] [id number] Ezequiel Cornejo MD Ph:[phone] Most recent to oldest [Reference Range]: 1 WBC [3.7-10.4 K/CMM] 7.6 K/CMM (09/14/18 7:28 AM) RBC [4.20-5.40 M/CMM] 3.95 M/CMM *LOW* (09/14/18 7:28 AM) Hgb [12.0-16.0 g/dL] 11.8 g/dL *LOW* (09/14/18 7:28 AM) Hct [36.0-48.0 %] 35.6 % *LOW* (09/14/18 7:28 AM) MCV [80.0-98.0 fL] 90.0 fL (09/14/18 7:28 AM) MCH [27.0-31.0 pg] 29.9 pg (09/14/18 7:28 AM) MCHC [32.0-36.0 g/dL] 33.2 g/dL (09/14/18 7:28 AM) RDW [11.5-14.5 %] 15.7 % *HI* (09/14/18 7:28 AM) MPV [7.4-10.4 fL] 8.7 fL (09/14/18 7:28 AM) Platelet [133-450 K/CMM] 149 K/CMM (09/14/18 7:28 AM) Segs [45.0-75.0 %] 72.5 % (09/14/18 7:28 AM) Lymphocytes [20.0-40.0 %] 15.4 % *LOW* (09/14/18 7:28 AM) Monocytes [2.0-12.0 %] 6.5 % (09/14/18 7:28 AM) Eosinophils [0.0-4.0 %] 4.4 % *HI* (09/14/18 7:28 AM) Basophils [0.0-1.0 %] 1.2 % *HI* (09/14/18 7:28 AM) Neutrophils # [1.5-8.1 K/CMM] 5.5 K/CMM (09/14/18 7:28 AM) Lymphocytes # [1.0-5.5 K/CMM] 1.2 K/CMM (09/14/18 7:28 AM) Monocytes # [0.0-0.8 K/CMM] 0.5 K/CMM (09/14/18 7:28 AM) Eosinophils # [0.0-0.5 K/CMM] 0.3 K/CMM (09/14/18 7:28 AM) Basophils # [0.0-0.2 K/CMM] 0.1 K/CMM (09/14/18 7:28 AM) PT [12.0-14.7 seconds] 14.5 seconds (09/14/18 7:28 AM) INR [0.85-1.17] 1.15 (09/14/18 7:28 AM) PTT [22.9-35.8 seconds] 37.3 seconds *HI* (09/14/18 7:28 AM) PARASITOLOGY - SEROLOGY Most recent to oldest [Reference Range]: 1 Strongyloides Antibodies [Negative] Negative 1 *NA* (09/14/18 7:28 AM) 1Result Comment: Performed At: [address] [id number] Ezequiel Cornejo MD Ph:[phone] Immunizations No data available for this section Procedures Procedure Date Related Diagnosis Body Site Status section Completed Social History Social History Type Response Alcohol Never Smoking Status Never smoker; Exposure to Tobacco Smoke None; Cigarette Smoking Last 365 Days No; Reg Smoking Cessation Counseling No entered on: 09/14/18 Assessment and Plan No data available for this section
--- OUTSIDE RECORDS SUMMARY | 2018-12-05 12:58 | XMS REPORT ---
:1980 Author Organization [facility] Address [address] [place] [address] Care Team Providers Name Role Phone Unavailable Unavailable Unavailable Problems This patient has no known problems. Allergies, Adverse Reactions, Alerts This patient has no known allergies or adverse reactions. Medications This patient has no known medications. Encounters Start End Encounter Admission Attending Care Care Encounter Date/Time Date/Time Type Type Clinicians Facility Department ID 2018-10-18 Inpatient [facility] [id number] 08:59:05 2018-10-19 2018-10-19 Outpatient [facility] 9602 08:08:00 08:08:00
--- OUTSIDE RECORDS SUMMARY | 2018-12-05 12:58 | XMS REPORT | Summary of Care ---
:1980 Author Organization [facility] [place] Address [address], [place] [address]- Encounter HQ Dorothy_winston(FIN) [id number] Date(s): 10/19/18 - 11/17/[address] [place] [address]- [phone] Discharge Disposition: Home or Self Care Attending Physician: Macie Padgett MD Referring Physician: Macie Padgett MD Vital Signs Most recent to oldest [Reference Range]: 1 Height 146.5 cm (10/19/18 8:43 AM) Blood Pressure [90-140/60-90 mmHg] 163/91 mmHg *HI* (10/19/18 8:43 AM) Respiratory Rate [14-20 BRMIN] 19 BRMIN (10/19/18 8:43 AM) Peripheral Pulse Rate [60-100 bpm] 76 bpm (10/19/18 8:43 AM) Weight 79.6 kg (10/19/18 8:43 AM) Body Mass Index 37.09 m2 (10/19/18 8:43 AM) Problem List Condition Effective Dates Status Health Status Informant CHF (congestive heart Resolved failure)(Confirmed) Hypertension(Confirmed) Resolved Hyperthyroidism(Confirmed) Resolved Pleural effusion(Confirmed) Resolved Renal osteodystrophy(Confirmed) Resolved Restless leg syndrome(Confirmed) Resolved Allergies, Adverse Reactions, Alerts Substance Reaction Severity Status vancomycin Active Zosyn Active Medications No data available for this section Results Most recent to oldest [Reference Range]: 1 F2 Mutation PCR Negative (10/19/18 8:19 AM) Mumps IgG [<=0.8 AI] 2.6 AI *HI* (10/19/18 8:19 AM) Rubeola IgG [<=0.8 AI] 2.5 AI *HI* (10/19/18 8:19 AM) Hex Phos N [Negative] Negative (10/19/18 8:19 AM) U Prot/Creat 81.18 *NA* (10/19/18 8:19 AM) F5 Leiden PCR Negative (10/19/18 8:19 AM) F5 Leiden Intrp FACTOR V LEIDEN: Negative INTERPRETATION: Molecular analysis for the Factor V Leiden [id number] mutation is negative. Other causes of activated protein C resistance and hereditary forms of venous thrombosis are not ruled out. The test result must be interpreted along with the patient s clinical history and relevant laboratory data. Where appropriate, medical consultation and/or genetic counseling should be offered to infor m and explain the risk implications and genetic implications of these test results. ASSAY LIMITATIONS: The [employer] assay uses the FDA-cleared real time polymerase chain reaction (PCR) reagents for the detection and genotyping of the human Factor V Leiden [id number] mutation. The assay will amplify a 233 base pair fragment of Factor V gene (FV)containing the Factor V Leiden [id number] sequence. The assay is designed to detect the G 1691A mutation only. Other causes of activated protein C resistance and h ereditary forms of venous thrombosis are not ruled out. The presence of PCR inhibitors may cause invalid results. The performance characteristics of this assay were validated by the [facility] within [facility]. The [facility] is authorized under the Clinical Laboratory Improvement Amendments of 1988 (CLIA-88) to perform high complexity testing *NA* (10/19/18 8:19 AM) F2 Mut Interp FACTOR II PT: Negative INTERPRETATION: Molecular analysis for the Factor II (Prothrombin) [id number]>A mutation is negative. Other causes of elevated prothrombin levels and hereditary forms of venous thrombosis are not ruled out. The test result must be interpreted along with the patient s clinical history and relevant laboratory data. Where appropriate, medical consultation and genetic counseling should be offered to inform a nd explain the risk implications and genetic implications ASSAY LIMITATIONS: The [employer] assay uses FDA-cleared Real time Polymerase chain reaction ( PCR) reagents for the detection and genotyping of the human Factor II ( Prothrombin) [id number] mutation. The assay will amplify a 173 base pair fragment of Factor II Gene (FII) containing the Factor II [id number] sequence. The assay is designed to detect the [id number] mutation only. Other causes of elevated prothrombin levels and hereditary forms of venous thromboses are not ruled out. The presence of PCR inhibitors may cause invalid results. The performance characteristics of this assay were validated by the [facility] within [facility]. The [facility] is authorized under the Cli nical Laboratory Improvement Amendments of 1988 (CLIA-88) to perform high complexity testing. *NA* (10/19/18 8:19 AM) AT III Ag [72-124 %] 132 % 1 *HI* (10/19/18 8:19 AM) AT III Func [77-140 %] 131 % (10/19/18 8:19 AM) Lup Interp Negative for lupus anticoagulant with all tests performed (dRVVT, and hexagonal phospholipid neutralization). CPT: 57345 *NA* (10/19/18 8:19 AM) Protein C Tot [60-150 %] 101 % 2 *NA* (10/19/18 8:19 AM) Protein S Tot [60-150 %] 113 % 3 *NA* (10/19/18 8:19 AM) Rubella IgG [>=10.0 IU/mL] >500.0 IU/mL (10/19/18 8:19 AM) U Alb 32789.0 mg/L *NA* (10/19/18 8:19 AM) UA Bacteria [None Seen /HPF] Occasional /HPF *NA* (10/19/18 8:19 AM) UA Bili [Negative] Negative *NA* (10/19/18 8:19 AM) UA Blood [Negative] Small *ABN* (10/19/18 8:19 AM) UA Color [Yellow] Adrianna *ABN* (10/19/18 8:19 AM) U Creatinine 29.80 mg/dL *NA* (10/19/18 8:19 AM) UA Glucose [Negative mg/dL] 500 mg/dL *ABN* (10/19/18 8:19 AM) UA Ketones [Negative] Trace *ABN* (10/19/18 8:19 AM) UA Leuk Est [Negative] Negative (10/19/18 8:19 AM) UA Mucus [None Seen /LPF] Few /LPF *NA* (10/19/18 8:19 AM) UA Nitrite [Negative] Negative (10/19/18 8:19 AM) UA pH [5.0-8.0] >=9.0 *ABN* (10/19/18 8:19 AM) U Protein 2419.3 mg/dL *NA* (10/19/18 8:19 AM) UA Protein [Negative mg/dL] >=300 mg/dL *ABN* (10/19/18 8:19 AM) UA RBC [0-2 /HPF] 26 /HPF *HI* (10/19/18 8:19 AM) UA Spec Grav [<=1.030] 1.020 (10/19/18 8:19 AM) UA Sq Epi [Few /LPF] Many /LPF *ABN* (10/19/18 8:19 AM) UA Turbidity [Clear] Slight *ABN* (10/19/18 8:19 AM) UA Urobilinogen [0.1-1.0 mg/dL] <1.0 mg/dL (10/19/18 8:19 AM) UA WBC [0-5 /HPF] 25 /HPF *HI* (10/19/18 8:19 AM) MTHFR DNA Mutation Analysis Comment 4 *NA* (10/19/18 8:19 AM) dRVV Ratio [<=1.20] 1.12 (10/19/18 8:19 AM) 1Result Comment: This test was developed and its performance characteristics determined by [employer] It has not been cleared or approved by the Food and Drug Administration. Performed At: [address] [id number] Ezequiel Cornejo MD Ph:[phone] Comment: Performed At: [address] [id number] Ezequiel Cornejo MD Ph:[phone] Comment: This test was developed and its performance characteristics determined by [employer] It has not been cleared or approved by the Food and Drug Administration. Performed At: [address] [id number] Ezequiel Cornejo MD Ph:[phone] Comment: Result: NEGATIVE (No mutation identified) Interpretation: This patient's sample was analyzed for the MTHFR mutations C677T and U6750B. No mutation was identified. The diagnosis of hyperhomocysteinemia can not rely on testing alone but should take into consideration clinical findings and other studies, such as serum homocysteine levels. Methylenetetrahydrofolate reductase (MTHFR) is a tamayo enzyme in the folate pathway and is responsible for the metabolism of homocysteine. There are two common variants in the MTHFR gene, c.655c>T (p.Mir218Yhri), referred to as C677T, and c.1286A>C (p.Jpo189Aej), referred to as J2052M. Individuals homozygous for C677T (two copies of [...] conditions in the absence of hyperhomocysteinemia. The I7513R variant is not associated with elevated homocysteine levels unless a C677T variant is also present; however, the clinical significance of heterozygosity for both C677T and M5516K is controversial. Population data suggest that these two variants are not present on the same chromosome, but rare exceptions have been reported of triple variant MTHFR genotypes (ie. homozygous for one variant and heterozygous for the other). Homozygosity for C677T has an estimated frequency of 10% to 15% in Caucasians and 25% in Hispanics. Additional information: Dietary folic acid, B6 and B12 supplementation has been suggested to lower homocysteine levels in some people. Folic acid supplementation has been shown to reduce the occurrence of neural tube defects. Genetic counselors are available for health care providers to discuss results at [phone]. Methodology: DNA analysis of the MTHFR gene was performed by PCR amplification followed by restriction analysis. The diagnostic sensitivity is >99% for both. Molecular-based testing is highly accurate, but as in any laboratory test, rare diagnostic errors may occur. All test results must be combined with clinical information for the most accurate interpretation. This test was developed and its performance characteristics determined by [employer]. It has not been cleared or approved by the Food and Drug Administration. References: Fawad HDEZ, Baljinder Q. Am J Epidemiol 2000; 151(9):862-877. Honey MM, Kavya JA. Arch Pathol Lab Med 2007; 131(6):872-884. Frosst P et al. Monica Cristin 1995; 10(1):111-113. Hickey SE et al. Cristin Med 2013; 15(2):153-156. Quecreek C et al. Obstet Gynecol 2011; 118(3):730-740. Bradley B et al. Eur J Epidemiol 2013; 28(8):621-647. Nilda Oliveira, PhD, FACMG Princess Meyer, PhD, FACMG Tamika KimSKwame, PhD, FACMG Yael Nicholson, PhD, FACMG Marc Campos, PhD, FACMG Forrest Sehlley, PhD, FACMG Performed At: [facility] [address] [place] [id number] Luna Barrientos MD Ph:[phone] Immunizations No data available for this section [...]
[2018-12-05 14:37] LABS: Absolute Lymphocytes (CBC) 0.7 K/uL (0.7-4.9); Absolute Monocytes 0.6 K/uL (0.1-1.3); Absolute Neutrophil 8.4 K/uL (1.8-8.0); Basophils % 0.9 % (0-1.3); Eosinophils % 1.5 % (0-4.4); Hematocrit 36.5 % (36.0-45.0); Lymphocytes % 6.8 % (15.3-44.8); MPV 8.5 fL (7.6-11.3)
[2018-12-05] MEDS ORDERED: VANCOMYCIN/NS 1 gm 1 GM/250 ML BAG IV ONE (14:45)
[2018-12-05] MEDS ORDERED: NA CHLORIDE 0.9% 1,000 ML ONE (14:46)
[2018-12-05] MEDS ORDERED: CEFEPIME 1 GM/100 ML BAG IV ONE (14:46)
--- NOTE | 2018-12-05 14:47 | RAD REPORT ---
EXAM DESCRIPTION: US - Extrem Venous W Compress Mdai - 12/05/2018 2:42 pm CLINICAL HISTORY: Leg pain and swelling COMPARISON: None. TECHNIQUE: Real-time sonographic evaluation of the bilateral lower extremity common femoral, superfi cial femoral, popliteal and posterior tibial veins was performed. FINDINGS: Normal compressibility, flow augmentation, phasic flow and spontaneous flow are identified in the left and right lower extremity common femoral, superficial femoral, popliteal and posterior t ibial veins. No intraluminal filling defects seen. IMPRESSION: No DVT in either lower extremity.
[2018-12-05 14:59] LABS: Albumin 3.4 g/dL (3.4-5.0); Bilirubin Total 2.2 mg/dL (0.2-1.0); Potassium 4.6 mmol/L (3.5-5.1); Protein, Total 8.1 g/dL (6.4-8.2)
--- NOTE | 2018-12-05 15:15 | RAD REPORT ---
EXAM DESCRIPTION: Miguel A Pa And Lat (2 Views)12/05/2018 2:58 pm CLINICAL HISTORY: Cough COMPARISON: August 2017 FINDINGS: Mild bilateral pulmonary opacities Heart is mildly enlarged IMPRESSION: Mild bilateral pulmonary opacities may represent pulmonary edema, interstitial pneumoni a or pneumonitis
--- NOTE | 2018-12-05 15:57 | ER ---
Nurse's Notes [facility] Name: Puja Le Age: 38 yrs Sex: Female : 1980 Arrival Date: 12/05/2018 Time: 12:57 Bed 14 Private MD: Unknown, Unknown Diagnosis: Fever, unspecified;Dyspnea;End stage renal disease;Pneumonia due to other specified bacteria;Cellulitis and acute lymphangitis of other parts of limb-right lower extremity Presentation: 12/05 13:07 Presenting complaint: Patient states: Fever, chills, and back pain since this AM. aj Dialysis on wednesday. Transition of care: patient was not received from another setting of care. Onset of symptoms was December 05, 2018. Risk Assessment: Do you want to hurt yourself or someone else? Patient reports no desire to harm self or others. Initial Sepsis Screen: Does the patient meet any 2 criteria? No. Patient's initial sepsis screen is negative. Does the patient have a suspected source of infection? No. Patient's initial sepsis screen is negative. Care prior to arrival: None. 13:07 Method Of Arrival: Ambulatory 13:07 Acuity: KATHRYN 3 aj Triage Assessment: 13:08 General: Appears in no apparent distress. comfortable, Behavior is calm, cooperative, aj appropriate for age. Pain: Complains of pain in back. Neuro: Level of Consciousness is awake, alert, obeys commands, Oriented to person, place, time, situation, Appropriate for age. Respiratory: Airway is patent Respiratory effort is even, unlabored, Respiratory pattern is regular, symmetrical. Derm: Skin is pink, warm \T\ dry. Redness and swelling to right medial calf. 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 - Social history:: Smoking status: Patient/guardian denies using tobacco, Patient/guardian denies using alcohol. - Ebola Screening: : Patient negative for fever greater than or equal to 101.5 degrees Fahrenheit, and additional compatible Ebola Virus Disease symptoms. - Family history:: not pertinent. Screenin:07 Abuse screen: Denies threats or abuse. Denies injuries from another. Nutritional hj screening: No deficits noted. Tuberculosis screening: No symptoms or risk factors identified. Fall Risk None identified. Assessment: 13:15 General: Appears in no apparent distress. uncomfortable, Behavior is calm, cooperative, hj appropriate for age. Pain: Complains of pain in right leg and medial aspect of right calf and right calf and back. Neuro: Level of Consciousness is awake, alert, obeys commands, Oriented to person, place, time, situation, Appropriate for age. Cardiovascular: Capillary refill < 3 seconds Patient's skin is warm and dry. Respiratory: Airway is patent Respiratory effort is even, Respiratory pattern is regular, symmetrical. GI: No signs and/or symptoms were reported involving the gastrointestinal system. : No signs and/or symptoms were reported regarding the genitourinary system. EENT: No signs and/or symptoms were reported regarding the EENT system. Derm: ARIANE graft. Musculoskeletal: No signs and/or symptoms reported regarding the musculoskeletal system. 14:59 Reassessment: Patient and/or family updated on plan of care and expected duration. Pain hj level reassessed. Patient is alert, oriented x 3, equal unlabored respirations, skin warm/dry/pink. awaiting results and POC;. 17:13 Reassessment: hospitalist in room; temp checked- 102. 3; with verbal order of tylenol hj 650mg;. 18:20 Reassessment: Patient and/or family updated on plan of care and expected duration. Pain hj level reassessed. Patient is alert, oriented x 3, equal unlabored respirations, skin warm/dry/pink. Patient states feeling better. Patient states symptoms have improved. 19:00 General: Appears in no apparent distress. Behavior is calm, cooperative, appropriate ea for age. Pain: Denies pain. Neuro: Level of Consciousness is awake, alert, obeys commands, Oriented to person, place, time, situation. Cardiovascular: Patient's skin is warm and dry. Respiratory: Airway is patent Respiratory effort is even, unlabored, Respiratory pattern is regular, symmetrical. GI: No signs and/or symptoms were reported involving the gastrointestinal system. Musculoskeletal: Circulation, motion, and sensation intact. 19:46 Reassessment: Patient and/or family updated on plan of care and expected duration. Pain ea level reassessed. Patient is alert, oriented x 3, equal unlabored respirations, skin warm/dry/pink. Pt admitted to second floor, left ED via wheelchair per furniture repair technician. Pt tolerating well. Vital Signs: 13:08 BP 172 / 92; Pulse 91; Resp 20; Temp 98.9; Pulse Ox 93% on R/A; Weight 78.93 kg; Height aj 5 ft. 0 in. (152.40 cm); 14:15 BP 170 / 89; Pulse 92; Resp 18; Pulse Ox 95% on R/A; hj 15:04 BP 168 / 75; Pulse 89; Resp 18; Temp 99.0(O); Pulse Ox 95% on R/A; hj 15:14 BP 171 / 90; Pulse 81; Resp 18; Pulse Ox 95% on R/A; hj 15:45 BP 158 / 91; Pulse 84; Resp 18; Pulse Ox 96% on R/A; hj 16:30 BP 160 / 88; Pulse 84; Resp 18; Pulse Ox 99% on 2 lpm NC; hj 17:30 BP 157 / 87; Pulse 82; Resp 18; Pulse Ox 99% on 2 lpm NC; hj 18:23 BP 163 / 89; Pulse 85; Resp 18; Pulse Ox 100% on 2 lpm NC; hj 19:39 BP 166 / 93; Pulse 79; Resp 18; Temp 99; Pulse Ox 99% ; Pain 0/10; ea 13:08 Body Mass Index 33.98 (78.93 kg, 152.40 cm) ED Course: 12:57 Patient arrived in ED. tw3 12:57 Unknown, Unknown is Private Physician. tw3 13:07 Triage completed. aj 13:08 Patient has correct armband on for positive identification. Placed in gown. Bed in low hj position. Call light in reach. Side rails up X 1. 13:09 Arm band placed on right wrist. Patient placed in an exam room. aj 13:12 Andrea Tan, BRIAN is Primary Nurse. hj 13:13 Aleksander Ramírez MD is Attending Physician. meredith 13:15 Initial lab(s) drawn, by me, sent to lab. First set of blood cultures drawn. hj 13:45 Second set of blood cultures drawn by me. hj 14:46 US Extremity Venous W Compression Madi In Process Unspecified. EDMS 14:55 X-ray completed. Patient tolerated procedure well. Patient moved to radiology via sw wheelchair. Patient moved back from radiology. 14:58 Chest Pa And Lat (2 Views) XRAY In Process Unspecified. EDMS 15:55 Karla Holm MD is Hospitalizing Provider. [facility] 16:13 EKG done, by structural engineering technician. reviewed by Aleksander Ramírez MD. 3 17:14 Inserted saline lock: 22 gauge in right antecubital area, using aseptic technique. hj Blood collected. 17:40 Inserted saline lock: 20 gauge in right antecubital area, using aseptic technique. iw 17:43 Urine collected: clean catch specimen, cloudy, doretha colored. jb1 18:59 No provider procedures requiring assistance completed. Patient admitted, IV remains in hj place. intact. 19:37 Amarilys Blankenship RN is Primary Nurse. ea Administered Medications: 14:45 Drug: NS 0.9% 1000 ml Route: IV; Rate: 125 ml/hr; Site: right antecubital; hj 19:01 Follow up: IV Status: Infusion continued upon admission hj 14:45 Drug: Cefepime 1 grams Route: IVPB; Rate: 200 ml/hr; Infused Over: 30 mins; Site: right hj antecubital; 15:15 Follow up: IV Status: Completed infusion; IV Intake: 100ml hj 15:13 Drug: vancoMYCIN 1 grams Route: IVPB; Infused Over: 2 hrs; Site: right antecubital; hj 18:25 Follow up: IV Status: Completed infusion; IV Intake: 250ml hj 17:19 Drug: Tylenol 650 mg Route: PO; hj 18:25 Follow up: Response: No adverse reaction; Temperature is decreased hj Intake: 15:15 IV: 100ml; Total: 100ml. hj 18:25 IV: 250ml; Total: 350ml. Outcome: 15:57 Decision to Hospitalize by Provider. meredith 18:59 Admitted to Med/surg accompanied by tech, family with patient, via wheelchair, room hj 225, with chart, Report called to BRIAN Pruett 18:59 Condition: stable 18:59 Instructed on the need for admit, Demonstrated understanding of instructions. 19:48 Patient left the ED. ea Signatures: Dispatcher [employer] EDFreddy Tamayo jb1 Jeana Sotelo, RN RN Aleksander Ordaz MD MD cha Williams, Irene, RN RN Lary Carroll Henry RN Toshia Roche 3 Amarilys Blankenship RN Yvonne Killian ea 3 Corrections: (The following items were deleted from the chart) 17:20 17:13 Reassessment: hospitalist in room; go stiles
--- NOTE | 2018-12-05 15:58 | EDPHYS ---
Physician Documentation [facility] Name: Puja Le Age: 38 yrs Sex: Female : 1980 Arrival Date: 12/05/2018 Time: 12:57 Bed 14 Private MD: Unknown, Unknown ED Physician Aleksander Ramírez HPI: 12/05 13:52 This 38 yrs old Female presents to ER via Ambulatory with complaints of Fever, meredith CHILLS. 13:52 The patient reports fever, that was measured at 101 degrees Fahrenheit. Onset: The meredith symptoms/episode began/occurred 2 day(s) ago. Modifying factors: there are no obvious modifying factors. Associated signs and symptoms: Pertinent positives: cough, runny nose, sinus congestion, shortness of breath. Severity of symptoms: At their worst the symptoms were mild in the emergency department the symptoms are unchanged. The patient has not experienced similar symptoms in the past. 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 - Social history:: Smoking status: Patient/guardian denies using tobacco, Patient/guardian denies using alcohol. - Ebola Screening: : Patient negative for fever greater than or equal to 101.5 degrees Fahrenheit, and additional compatible Ebola Virus Disease symptoms. - Family history:: not pertinent. ROS: 13:52 Constitutional: Negative for fever, chills, and weight loss, Eyes: Negative for injury, meredith pain, redness, and discharge, ENT: Negative for injury, pain, and discharge, Neck: Negative for injury, pain, and swelling, Cardiovascular: Negative for chest pain, palpitations, and edema, Abdomen/GI: Negative for abdominal pain, nausea, vomiting, diarrhea, and constipation, Back: Negative for injury and pain, : Negative for injury, bleeding, discharge, and swelling, Skin: Negative for injury, rash, and discoloration, Neuro: Negative for headache, weakness, numbness, tingling, and seizure. 13:52 Respiratory: Positive for cough. 13:52 MS/extremity: Positive for erythema, pain, swelling, of the right calf and medial aspect of right calf. Exam: 13:52 Constitutional: This is a well developed, well nourished patient who is awake, alert, meredith and in no acute distress. Head/Face: Normocephalic, atraumatic. Eyes: Pupils equal round and reactive to light, extra-ocular motions intact. Lids and lashes normal. Conjunctiva and sclera are non-icteric and not injected. Cornea within normal limits. Periorbital areas with no swelling, redness, or edema. ENT: Nares patent. No nasal discharge, no septal abnormalities noted. Tympanic membranes are normal and external auditory canals are clear. Oropharynx with no redness, swelling, or masses, exudates, or evidence of obstruction, uvula midline. Mucous membranes moist. Neck: Trachea midline, no thyromegaly or masses palpated, and no cervical lymphadenopathy. Supple, full range of motion without nuchal rigidity, or vertebral point tenderness. No Meningismus. Chest/axilla: Normal chest wall appearance and motion. Nontender with no deformity. No lesions are appreciated. Cardiovascular: Regular rate and rhythm with a normal S1 and S2. No gallops, murmurs, or rubs. Normal PMI, no JVD. No pulse deficits. Abdomen/GI: Soft, non-tender, with normal bowel sounds. No distension or tympany. No guarding or rebound. No evidence of tenderness throughout. Back: No spinal tenderness. No costovertebral tenderness. Full range of motion. Skin: Warm, dry with normal turgor. Normal color with no rashes, no lesions, and no evidence of cellulitis. Neuro: Awake and alert, GCS 15, oriented to person, place, time, and situation. Cranial nerves II-XII grossly intact. Motor strength 5/5 in all extremities. Sensory grossly intact. Cerebellar exam normal. Normal gait. Psych: Awake, alert, with orientation to person, place and time. Behavior, mood, and affect are within normal limits. 13:52 Respiratory: the patient does not display signs of respiratory distress, Respirations: normal, Breath sounds: bronchial sounds, that are mild, are scattered, rhonchi, that are mild, are scattered, stridor, is not appreciated, Respiratory rate: 20 Vital Signs: 13:08 BP 172 / 92; Pulse 91; Resp 20; Temp 98.9; Pulse Ox 93% on R/A; Weight 78.93 kg; Height aj 5 ft. 0 in. (152.40 cm); 14:15 BP 170 / 89; Pulse 92; Resp 18; Pulse Ox 95% on R/A; hj 15:04 BP 168 / 75; Pulse 89; Resp 18; Temp 99.0(O); Pulse Ox 95% on R/A; hj 15:14 BP 171 / 90; Pulse 81; Resp 18; Pulse Ox 95% on R/A; hj 15:45 BP 158 / 91; Pulse 84; Resp 18; Pulse Ox 96% on R/A; hj 16:30 BP 160 / 88; Pulse 84; Resp 18; Pulse Ox 99% on 2 lpm NC; hj 17:30 BP 157 / 87; Pulse 82; Resp 18; Pulse Ox 99% on 2 lpm NC; hj 18:23 BP 163 / 89; Pulse 85; Resp 18; Pulse Ox 100% on 2 lpm NC; hj 19:39 BP 166 / 93; Pulse 79; Resp 18; Temp 99; Pulse Ox 99% ; Pain 0/10; ea 13:08 Body Mass Index 33.98 (78.93 kg, 152.40 cm) aj MDM: 13:13 Patient medically screened. [facility] 13:55 Data reviewed: vital signs, nurses notes, lab test result(s), EKG, radiologic studies, meredith doppler, plain films. 12/05 13:52 Order name: CBC with Diff [facility] 12/05 13:52 Order name: Comprehensive Metabolic Panel [facility] 12/05 13:52 Order name: Blood Culture Adult (2) [facility] 12/05 13:52 Order name: Urine Culture [facility] 12/05 13:52 Order name: Influenza Screen (a \T\ B); Complete Time: 15:52 [facility] 12/05 13:52 Order name: Procalcitonin; Complete Time: 15:52 [facility] 12/05 13:52 Order name: Lactate; Complete Time: 14:58 [facility] 12/05 13:54 Order name: CBC with Automated Diff; Complete Time: 14:58 [facility] 12/05 13:54 Order name: Comprehensive Metabolic Panel; Complete Time: 15:52 [facility] 12/05 13:52 Order name: Strep; Complete Time: 15:52 [facility] 12/05 15:07 Order name: Throat Culture [facility] 12/05 15:53 Order name: Basic Metabolic Panel [facility] 12/05 15:53 Order name: LFT's [facility] 12/05 15:53 Order name: Magnesium [facility] 12/05 13:52 Order name: Urine Dipstick-Ancillary (obtain specimen); Complete Time: 17:45 [facility] 12/05 13:52 Order name: Chest Pa And Lat (2 Views) XRAY; Complete Time: 15:52 [facility] 12/05 13:52 Order name: US Extremity Venous W Compression Madi; Complete Time: 14:58 [facility] 12/05 15:53 Order name: NT PRO-BNP [facility] 12/05 15:53 Order name: PT-INR [facility] 12/05 15:53 Order name: Troponin (emerg Dept Use Only) [facility] 12/05 15:53 Order name: EKG; Complete Time: 15:54 [facility] 12/05 15:53 Order name: Cardiac monitoring; Complete Time: 15:58 [facility] 12/05 17:49 Order name: Urine Dipstick--Ancillary (enter results) 12/05 17:49 Order name: Urine --Ancillary (enter results) 12/05 18:21 Order name: Urine --Ancillary [facility] 12/05 18:21 Order name: Urine Dipstick-Ancillary [facility] 12/05 15:53 Order name: EKG - Nurse/Tech; Complete Time: 16:40 [facility] 12/05 15:53 Order name: IV Saline Lock; Complete Time: 15:59 [facility] 12/05 15:53 Order name: Labs collected and sent; Complete Time: 15:59 [facility] 12/05 15:53 Order name: O2 Per Protocol; Complete Time: 15:59 [facility] 12/05 15:53 Order name: O2 Sat Monitoring; Complete Time: 15:59 [facility] Administered Medications: 14:45 Drug: NS 0.9% 1000 ml Route: IV; Rate: 125 ml/hr; Site: right antecubital; hj 19:01 Follow up: IV Status: Infusion continued upon admission 14:45 Drug: Cefepime 1 grams Route: IVPB; Rate: 200 ml/hr; Infused Over: 30 mins; Site: right hj antecubital; 15:15 Follow up: IV Status: Completed infusion; IV Intake: 100ml 15:13 Drug: vancoMYCIN 1 grams Route: IVPB; Infused Over: 2 hrs; Site: right antecubital; 18:25 Follow up: IV Status: Completed infusion; IV Intake: 250ml 17:19 Drug: Tylenol 650 mg Route: PO; 18:25 Follow up: Response: No adverse reaction; Temperature is decreased Disposition: 12/05/18 15:57 Hospitalization ordered by Krala Holm for Inpatient Admission. Preliminary diagnosis are Fever, unspecified, Dyspnea, End stage renal disease, Pneumonia due to other specified bacteria, Cellulitis and acute lymphangitis of other parts of limb - right lower extremity. - Bed requested for Telemetry/MedSurg (Inpatient). - Status is Inpatient Admission. ea - Condition is Fair. - Problem is new. - Symptoms have improved. UTI on Admission? No Signatures: Dispatcher [employer] EDMS Yelena Yadav Amanda, RN RN aj Anderson, Corey, MD MD cha Joaquin, Henry, RN RN hj Antunez, Elena, RN RN ea Corrections: (The following items were deleted from the chart) 18:04 15:57 Hospitalization Ordered by Karla Holm MD for Inpatient Admission. Preliminary bd diagnosis is Fever, unspecified; Dyspnea; End stage renal disease; Pneumonia due to other specified bacteria; Cellulitis and acute lymphangitis of other parts of limb - right lower extremity. Bed requested for Telemetry/MedSurg (Inpatient). Status is Inpatient Admission. Condition is Fair. Problem is new. Symptoms have improved. UTI on Admission? No. [facility] 19:48 18:04 12/05/2018 15:57 Hospitalization Ordered by Karla Holm MD for Inpatient ea Admission. Preliminary diagnosis is Fever, unspecified; Dyspnea; End stage renal disease; Pneumonia due to other specified bacteria; Cellulitis and acute lymphangitis of other parts of limb - right lower extremity. Bed requested for Telemetry/MedSurg (Inpatient). Status is Inpatient Admission. Condition is Fair. Problem is new. Symptoms have improved. UTI on Admission? No. bd
--- NOTE | 2018-12-05 17:17 | EKG ---
Test Date: 2018-12-05 Test Time: 16:05:09 Program Director/Air Personality: HERMANN MEASUREMENT RESULTS: Intervals: Rate: 79 NJ: 144 QRSD: 80 QT: 406 QTc: 465 [place]: P: 40 NJ: 144 QRS: 49 T: -4 INTERPRETIVE STATEMENTS: Normal sinus rhythm Normal ECG Compared to ECG 09/13/2017 10:43:16 Sinus tachycardia no longer present ST (T wave) deviation no longer present Electronically Signed On 12-05-18 17:17:01 CDT by Jose Ornelas
[2018-12-05 17:25] LABS: Protime INR 1.31
[2018-12-05] MEDS ORDERED: ACETAMINOPHEN 325 MG TABLET ONE (17:33)
[2018-12-05 18:18] LABS: Urine Blood 3+ (NEG); Urine Glucose 1+ (NEG); Urine Protein 3+ (NEG); Urine Specific Gravity 1.015 (1.005-1.030); Urine pH 8.5 (5.0-7.0)
[2018-12-05 19:32] LABS: Magnesium 2.5 mg/dL (1.8-2.4); Troponin (Emerg Dept Use Only) 0.03 ng/mL (0.0-0.045)
[2018-12-05] MEDS ORDERED: ALBUTEROL 2.5 MG/3 ML NEB SOL NEB PRN (19:34)
--- NOTE | 2018-12-05 19:35 | P.HP ---
Certification for Inpatient Patient admitted to: Inpatient Practitioner: I am a practitioner with admitting privileges, knowledge of patient current condition, hospital course, and medical plan of care. Services: Services provided to patient in accordance with Admission requirements found in Title 42 Section 412.3 of the Code of Federal Regulations Patient History Date of Service: 12/05/18 Reason for admission: Fever History of Present Illness: This is a 38-year-old female with history of hypertension, ESRD on dialysis admitted for fever. Per patient, fever started this morning along with chills, and cough along with body aches. The scope progressively worsen she felt very ill therefore she came to the ER. She denies any chest pain, shortness of breath, GI complaints or complaints, headaches, vision changes or speech changes, lightheadedness, syncopal or presyncopal episodes. In the ER, patient was found to have a temperature of 102.3, blood pressure 172 /92, heart rate 91, 92% on room air with respirations of 20. Her for creatinine of 7.92. Her fluids strep screen were negative. Troponin and BNP were pending. Her lactic acid was normal, pro callus of 8 italic was 0.76. She did not have a WBC count. Chest x-ray was positive for mild bilateral pulmonary opacities that may represent pulmonary edema, interstitial pneumonia or pneumonitis. In the ER, she received vancomycin, cefepime and IV fluids. At the time of my exam, patient was in mild to moderate distress secondary to body aches and pain and fever of 102.3. She was otherwise hemodynamically stable. She did meet criteria for SIRS, her pneumonia severity index was 79, risk class 3 and she had a current fever of 102.3. Therefore she will require inpatient admission for treatment and further management of her pneumonia Allergies piperacillin [From Zosyn] Allergy (Unverified 11/24/17 05:02) Unknown tazobactam [From Zosyn] Allergy (Unverified 11/24/17 05:02) Unknown Home Medications: Losartan Potassium [Cozaar] 25 mg PO DAILY PRN 09/13/17 Aspirin [Aspirin EC 81 MG] 81 mg PO DAILY #90 tablet. 09/17/17 Benzonatate [Tessalon Perle*] 100 mg PO TID PRN #20 cap 09/17/17 Pantoprazole [Protonix Tab*] 40 mg PO DAILYAC #30 tab 09/17/17 levoFLOXacin [Levaquin*] 250 mg PO Q48H #4 tab 09/17/17 - Past Medical/Surgical History Diabetic: Yes -: End-stage renal disease -: HTN -: CAD -: Diabetes mellitus -: C Section x2 -: Former peritoneal dialysis Psychosocial/ Personal History: The patient is . - Social History Alcohol use: No CD- Drugs: No Review of Systems 10-point ROS is otherwise unremarkable Physical Examination - Physical Exam General: Alert, Oriented x3, Mild distress, Moderate distress, Other (Ill appearing) HEENT: Atraumatic, PERRLA, Mucous membr. moist/pink, EOMI, Sclerae nonicteric Neck: Supple, 2+ carotid pulse no bruit, No LAD, Without JVD or thyroid abnormality Respiratory: Clear to auscultation bilaterally, Normal air movement Cardiovascular: Regular rate/rhythm, Normal S1 S2 Gastrointestinal: Normal bowel sounds, No tenderness Musculoskeletal: No tenderness Integumentary: No rashes Neurological: Normal gait, Normal speech, Normal strength at 5/5 x4 extr, Normal tone, Normal affect Lymphatics: No axilla or inguinal lymphadenopathy - Studies Laboratory Data (last 24 hrs) 12/05/18 14:20: PT 15.3 H, INR 1.31 12/05/18 14:20: Sodium Cancelled, Potassium Cancelled, BUN Cancelled, Creatinine Cancelled, Glucose Cancelled, Total Bilirubin Cancelled, AST Cancelled, ALT Cancelled, Alkaline Phosphatase Cancelled 12/05/18 14:20: Sodium 137, Potassium 4.6, BUN 46 H, Creatinine 7.92 H*, Glucose 89, Total Bilirubin 2.2 H, AST 30, ALT 22, Alkaline Phosphatase 187 H 12/05/18 14:20: WBC 9.9, Hgb 11.9 L, Hct 36.5, Plt Count 150 L Microbiology Data (last 24 hrs): 12/05/18 14:20 Throat Group A Streptococcus Rapid Screen - Final 12/05/18 14:20 Nasopharnyx Influenza Type A Antigen Screen - Final 12/05/18 14:20 Nasopharnyx Influenza Type B Antigen Screen - Final Assessment and Plan - Problems (Diagnosis) (1) SIRS (systemic inflammatory response syndrome) Current Visit: Yes Status: Acute (2) Pneumonia Current Visit: No Status: Acute Qualifiers: Pneumonia type: due to unspecified organism Laterality: bilateral Lung location: unspecified part of lung Qualified Code(s): J18.9 - Pneumonia, unspecified organism (3) End stage renal disease Onset Date: 09/14/17 Current Visit: No Status: Chronic Plan: Hemodialysis Wednesday, , Wednesday (4) Hypertension Onset Date: 09/14/17 Current Visit: No Status: Chronic Qualifiers: Hypertension type: essential hypertension (5) Obesity (BMI 30.0-34.9) Current Visit: No Status: Chronic - Plan -Admit to floor with tele -IV antibiotics -antipyretics for fever p.r.n. -Repeat chest x-ray in the a.m. -nephrology: Dr. Thakur. Consulted for hemodialysis. -continue to monitor for sepsis. -Resume home medications as appropriate DVT prophylaxis: Heparin GI prophylaxis: None Diet: Renal/fluid restriction Disposition: Admit to floor with tele. IV antibiotics. Pending symptomatic improvement Discharge Plan: Home - Advance Directives Does patient have a Living Will: No Does patient have a Durable POA for Healthcare: No Time Spent Managing Pts Care (In Minutes): 55
[2018-12-05] MEDS ORDERED: CEFTRIAXONE 1 GM/NS 50 ML 1 GM/50 ML BAG IV SCH (21:00)
[2018-12-05 21:15] LABS: Albumin 3.1 g/dL (3.4-5.0); Bilirubin Total 1.9 mg/dL (0.2-1.0); Potassium 4.9 mmol/L (3.5-5.1); Protein, Total 7.6 g/dL (6.4-8.2)
[2018-12-05] MEDS ORDERED: CEFTRIAXONE 1000 MG/VIAL ONE (22:17)
[2018-12-05] MEDS ORDERED: NA CHLORIDE 0.9% 50 ML ONE (22:17)
[2018-12-05] MEDS: TRAMADOL HCL 50 MG TAB PO PRN (22:48)
[2018-12-06] MEDS: HYDRALAZINE HCL 20 MG/ML VIAL IV PRN ×2 (00:36→21:08)
[2018-12-06] MEDS: HEPARIN 5000 UNIT/ML 1 ML VIAL SQ SCH ×3 (00:36→17:00)
[2018-12-06 07:09] LABS: Absolute Lymphocytes (CBC) 0.8 K/uL (0.7-4.9); Absolute Monocytes 0.6 K/uL (0.1-1.3); Basophils % 1.2 % (0-1.3); Eosinophils % 1.6 % (0-4.4); Hematocrit 32.7 % (36.0-45.0); Lymphocytes % 9.7 % (15.3-44.8); MPV 8.6 fL (7.6-11.3); Monocytes % 7.4 % (3.3-12.3); RBC Red Blood Cell Count 3.62 M/uL (3.86-4.86)
--- NOTE | 2018-12-06 08:23 | RAD REPORT ---
EXAM DESCRIPTION: Miguel A Pa And Lat (2 Views)12/06/2018 7:20 am CLINICAL HISTORY: Cough COMPARISON: December 05 FINDINGS: No significant change in the bilateral lung opacities. The heart remains enlarged. Mild prominence of the mediastinum may indicate lymphadenopathy
[2018-12-06] MEDS: AZITHROMYCIN IV 500 MG in NA CHLORIDE 0.9% 250 ML IVPB SCH (08:38)
[2018-12-06] MEDS: CEFTRIAXONE/SWI 1gm 1 GM/10 ML SYR IV SCH ×2 (08:38→21:08)
[2018-12-06] MEDS: TRAMADOL HCL 50 MG TAB PO PRN (14:46)
[2018-12-06] MEDS: FUROSEMIDE 40 MG TABLET PO SCH (17:00)
--- NOTE | 2018-12-06 18:52 | PN ---
Date of Progress Note: 12/06/2018 Subjective: The patient is seen and examined. Chart reviewed and case discussed with RN. The patie nt reports improvement in her breathing. Cough has improved as well. Medications: List reviewed. Physical Examination: Vital Signs: Temperature 97.4, heart rate 70, blood pressure 178/84, respirations 18, O2 91% on 2 L via nasal cannula. General: Awake, alert, and oriented x3. Some mild distress. Ill-appearing female. CV: S1 and S2. Peripheral pulses present. Respiratory: Diminished breath sounds. No wheezing or stridor. Gastrointestinal: Abdomen is soft, nontender, nondistended. Positive bowel sounds. No guarding or rigidity. Extremities: No clubbing or cyanosis. The patient has pedal edema. Skin: AV graft on the left arm with palpable thrill. Neurologic: Nonfocal. Laboratory Data: Triglycerides 103, cholesterol 113, LDL 58, HDL 34. WBC 8.7, H and H 11.2 and 32.7 , platelets 154. Blood cultures, no growth to date. Throat culture growing normal upper respiratory zoraida. Rapid strep screen is negative. Influenza screen also negative. Urine culture, no growth p reliminary report. Chest x-ray personally reviewed shows no significant change in bilateral lung opa cities. Heart remains enlarged. Mild prominence of the mediastinum may indicate lymphadenopathy. Assessment And Plan: A 38-year-old female with: 1.Systemic inflammatory response syndrome, improving. We will continue with IV fluid resuscitation. 2.Pneumonia, bilateral. Continue IV antibiotics. Follow up on cultures, no growth to date. 3.End-stage renal disease, on hemodialysis Wednesday, , Wednesday. Nephrology has been consult ed. We will continue with dialysis as scheduled. Monitor creatinine. 4.Essential hypertension. We will resume home medications as appropriate. 5.Obesity, BMI 34.7. 6.Deep venous thrombosis prophylaxis with heparin. Plan: Continue antibiotics. Anticipate dialysis today. Follow up on cultures. Likely discharged i n the next 24-48 hours depending on clinical response. Wean off O2. SA/MODL Voice ID: [id number] Report ID: [id number]
[2018-12-07] MEDS: HEPARIN 5000 UNIT/ML 1 ML VIAL SQ SCH ×2 (00:17→08:36)
[2018-12-07 05:57] LABS: Absolute Lymphocytes (CBC) 0.9 K/uL (0.7-4.9); Absolute Monocytes 0.8 K/uL (0.1-1.3); Absolute Neutrophil 4.8 K/uL (1.8-8.0); Basophils % 1.2 % (0-1.3); Hematocrit 32.1 % (36.0-45.0); Lymphocytes % 13.3 % (15.3-44.8); MPV 8.9 fL (7.6-11.3); Monocytes % 11.5 % (3.3-12.3); RBC Red Blood Cell Count 3.57 M/uL (3.86-4.86)
[2018-12-07 06:17] LABS: Albumin 2.8 g/dL (3.4-5.0); Bilirubin Total 0.9 mg/dL (0.2-1.0); Potassium 4.4 mmol/L (3.5-5.1); Protein, Total 7.3 g/dL (6.4-8.2)
[2018-12-07] MEDS: CEFTRIAXONE/SWI 1gm 1 GM/10 ML SYR IV SCH (08:35)
[2018-12-07] MEDS: AZITHROMYCIN IV 500 MG in NA CHLORIDE 0.9% 250 ML IVPB SCH (08:35)
[2018-12-07] MEDS: FUROSEMIDE 40 MG TABLET PO SCH (08:36)
[2018-12-07] MEDS: CA ACETATE 667 MG CAP PO SCH ×2 (08:37→12:54)
[2018-12-07] MEDS ORDERED: NIFEDIPINE XL 60 MG TABLET PO SCH (09:00)
--- NOTE | 2018-12-07 10:49 | CON ---
Date of Consultation: 12/06/2018 Reason For Consultation: End-stage renal disease. History Of Present Illness: Ms. Le is a 38-year-old female with a history of end-stage renal di sease, who dialyzes at the [facility], who presented to the hospital with a 2-da y history of worsening fevers and chills. Workup upon presentation revealed the evidence of pneumoni a. The patient is currently seen after receiving dialysis here in the hospital. She tolerated her d ialysis treatment well. Her only complaint at this time is some intermittent nausea. Review of Systems: Positive for fevers and chills. No chest pain. Positive for cough. Positive for dyspnea. Positive for nausea. No vomiting or diarrhea noted. Past Medical History: Hypertension, diabetes mellitus, coronary artery disease. Family History: Noncontributory. Physical Examination: Vital Signs: Blood pressure is 155/89, pulse 68, temperature 99.1. General: No acute distress. Heart: Regular rate and rhythm. No murmurs, rubs, gallops. Lungs: Coarse breath sounds at the left base. Abdomen: Soft, nontender, nondistended. Extremities: With 1 to 2+ edema. Laboratory Data: CBC reviewed and stable. Serum chemistry: Sodium 137, potassium 4.9, chloride 102, CO2 of 24, BUN 48, creatinine 8.11, glucose 87, albumin 3.1. Blood, urine, and throat cultures: No growth. Diagnostic Imaging: Chest x-ray, mild bilateral pulmonary opacities which represent a pulmonary carlota a, pneumonia or pneumonitis. Lower extremity Doppler showed no DVT. Current Medications: Include azithromycin and ceftriaxone, Lasix 60 mg p.o. b.i.d., nifedipine 60 da crystal.. Impression: 1.End-stage renal disease, on hemodialysis. 2.Pneumonia. 3.Hypertension. 4.Renal mineral bone disorder. Plan: Ms. Le did receive dialysis and is stable from volume and electrolyte standpoint. Please ensure the patient's home antihypertensive regimen is continued. This may need to be titrated here in the hospital. Please ensure the patient is on a renal diet and continues her phosphorus binders h ere in hospital. SE/MODL Voice ID: [id number] Report ID: [id number]
--- NOTE | 2018-12-08 05:39 | DS ---
Date of Discharge: 12/07/2018 Validation Architect: Dr. Vance with Nephrology. Admitting Diagnoses: 1. Systemic inflammatory response syndrome. 2. Pneumonia, bilateral. 3. End-stage renal disease, on hemodialysis. 4. Essential hypertension. 5. Obesity, BMI 34. Discharge Diagnoses: 1. Systemic inflammatory response syndrome, resolved. 2. Pneumonia, bilateral lobes, improving. Cultures negative. 3. Obesity, BMI 34.7. 4. Essential hypertension, stable. 5. End-stage renal disease, on hemodialysis. Hospital Course: The patient is a 38-year-old female with past medical history of end-stage renal disease on hemodialysis, hypertension, comes in with pneumonia. The patient was found to have systemic inflammatory response syndrome, temperature was 102.3, heart rate was 91. The patient's WBC count was normal and lactate was normal as well. The patient was started on IV antibiotics. Cultures were obtained, which remained negative. Influenza screen and strep screen were also negative. Throat culture did not show any strep. Urine culture showed mixed zoraida. Repeat chest x-ray showed mild improvement. Clinically, the patient was significantly improved. She was able to be weaned off supplemental oxygen. She was saturating 95% on room air. Her white blood cell count remained stable. She did not develop sepsis. The patient's dialysis was continued as scheduled. Dr. Vance with Nephrology has been consulted. Doppler sonogram was also done to rule out DVT of bilateral lower extremities and was negative. The patient was then ambulating well without difficulty. Her cough and chills had improved. She was breathing significantly better. The patient was then discharged home in a stable condition. Activity: As tolerated. Medications: As per medication reconciliation list. Finish up course of antibiotics. Diet: Renal. Discharge Instructions: Follow up with primary care physician in 2-3 days. Follow up with tire tester, Dr. Vance or Dr. Thakur in 2 weeks. Return to ER for worsening condition. Keep dialysis appointments as scheduled. Physical Examination: General: Awake, alert, oriented x3. No acute distress. CV: S1, S2. No murmurs. Respiratory: Moving air well bilaterally. No wheezing. Gastrointestinal: Abdomen is soft, nontender, nondistended. Positive bowel sounds. Extremities: No clubbing, cyanosis, or edema. Neurologic: Nonfocal. Total time spent discharging patient was 34 minutes. SA/MODL Voice ID: [id number] Report ID: [id number] SHELBY
== END 2018-12-07 13:28 | disposition home or self-care (01) | DRG 193 ==
LOC: ER 12:53 → ERHOLD 17:36 → 2ND 18:43
PROVIDERS: ADMIT Family Medicine; ATTEND Family Medicine
PROC: 5A1D70Z Performance of Urinary Filtration, Intermittent, Less than 6 Hours Per Day (ICD-10-PCS; principal; 2018-12-06)
DX: J18.1 Lobar pneumonia, unspecified organism (principal); N18.6 End stage renal disease; I12.0 Hypertensive chronic kidney disease with stage 5 chronic kidney disease or end stage renal disease; Z99.2 Dependence on renal dialysis; E66.9 Obesity, unspecified; I25.10 Atherosclerotic heart disease of native coronary artery without angina pectoris; E11.22 Type 2 diabetes mellitus with diabetic chronic kidney disease; N18.3 Chronic kidney disease, stage 3 (moderate); Z68.34 Body mass index [BMI] 34.0-34.9, adult; Z79.82 Long term (current) use of aspirin
CPT/HCPCS: 36415; 71046; 80053; 80061; 81003; 81025; 83605; 83735; 83880; 84145; 84484; 85025; 85610; 87040; 87070; 87081; 87086; 87088; 87804; 90935; 93005; 93970; 94760; 96361; 96365; 96366; 99285; J0360; J0456; J0692; J0696; J1644; J3370; J7030

== ENCOUNTER 2019-01-15 23:01 | Emergency (ER) | payer OTHER ==
--- OUTSIDE RECORDS SUMMARY | 2019-01-15 23:03 | XMS REPORT | Continuity of Care Document ---
:1980 Author Organization [email or web address] Care Team Providers Name Role Phone [facility] [email or web address] Unavailable Unavailable Problems Problem Status Onset Classification Date Comments Source Date Reported NEW EVALUATION Active 10/15/[address] RENAL/DO NOT USE Active 09/15/19 [facility] FOR CHARGES F/C 19 Medical NOTES O Center CHF (Confirmed) Resolved Problem 11/19/2018 [facility] Hypertension Resolved Problem 11/19/2018 [facility] Hyperthyroidism Resolved Problem 11/19/2018 [facility] Pleural effusion Resolved Problem 11/19/2018 [facility] 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[facility] osteodystrophy [facility] Restless leg Resolved Problem 11/19/2018 [facility] Medications No Data Provided for This Section Allergies, Adverse Reactions, Alerts Substance Category Reaction Severity Reaction Status Date Comments Source type Reported vancomycin Assertion Drug Active [facility] Zosyn Assertion Drug Active [facility] Immunizations No Data Provided for This Section Results Order Name Results Value Reference Date Interpretation Comments Source Range HEMATOLOGY AT III Ag 132 72 - 124 10/19 Result Comment: This Medical test was Center developed and its performance characteristi cs
determ ined by [facility]. It has not been cleared or
approv ed by the Food and Drug Administratio n.
Perfor med At: [facility]
[address], [place] [phone]<br/ >Ezequiel Cornejo MD Ph:[phone] HEMATOLOGY MTHFR DNA Comment 10/19 Result [facility] Comment: Medical Analysis
Result: Center NEGATIVE (No mutation identified)<b r/>Interpreta tion:
Thi s patient's sample was analyzed for the MTHFR mutations<br/ >C677T and Q9413Z. No mutation was identified. The diagnosis<br/ >of hyperhomocyst einemia can not rely on testing alone but
shoul d take into consideration clinical findings and other
ermias dies, such as serum homocysteine levels.

Methylen etetrahydrofo late reductase (MTHFR) is a tamayo enzyme in the
folat e pathway and is responsible for the metabolism of homocysteine.
There are two common variants in the MTHFR gene, c.655c>T
(p.Puw198Qvhb ), referred to as C677T, and c.1286A>C (p.Iro391Kws) ,
referre d to as C0004O. Individuals homozygous for C677T (two copies
of the variant), have decreased activity of the MTHFR enzyme and a
predisp osition to hyperhomocyst einemia, particularly when deficient in
folate . Hyperhomocyst einemia is a risk factor for venous thrombosis
and coronary artery disease and is associated with an increased risk
of open neural tube defects. The C677T variant does not
indep endently increase risk of these conditions in the absence of
hyperh omocysteinemi a. The E4065D variant is not associated with
elev ated homocysteine levels unless a C677T variant is also present;
however, the clinical significance of heterozygosit y for both C677T
and H5328R is controversial . Population data suggest that these two
va riants are not present on the same chromosome, but rare exceptions
have been reported of triple variant MTHFR genotypes (ie. homozygous
for one variant and heterozygous for the other). Homozygosity for
C677T has an estimated frequency of 10% to 15% in Caucasians and 25%
in Hispanics.

Addition al information:< br/>Dietary folic acid, B6 and B12 supplementati on has been suggested to
lower homocysteine levels in some people. Folic acid supplementati on
has been shown to reduce the occurrence of neural tube defects.

Genetic counselors are available for health care providers to discuss<br/&g t;results at [phone] E.

Methodol ogy:
DNA analysis of the MTHFR gene was performed by PCR
ampli fication followed by restriction analysis. The
diagn ostic sensitivity is >99% for both. Molecular-bas ed
testin g is highly accurate, but as in any laboratory test,
rar e diagnostic errors may occur. All test results must be
com bined with clinical information for the most accurate
interpretatio n.

This test was developed and its performance characteristi cs
determ ined by [facility]. It has not been cleared or approved by
the Food and Drug Administratio n.

Refer ences:
Edward manjarrez LD, Baljinder Q. Am J Epidemiol 2000; 151(9):862-87 7.
Mely grewal MM, Kavya JA. Arch Pathol Lab Med 2007; 131(6):872-88 4.
Frosst P et al. Monica Cristin 1995; 10(1):111-113 .
Kezia SE et al. Cristin Med 2013; 15(2):153-156 .
Charlee saul C et al. Obstet Gynecol 2011; 118(3):730-74 0.
Bradley B et al. Eur J Epidemiol 2013; 28(8):621-647 .

Nilda Oliveira, PhD, FACMG
Lilo Meyer, PhD, FACMG
Samantha Whipple M.S., PhD, FACMG
Yolanda Nicholson, PhD, FACMG
Hon goyo Campos, PhD, FACMG
David Shelley, PhD, FACMG
Per formed At: [employer]
[address] [employer] [address] [id number]<br/ >Luna Barrientos MD Ph:[phone] HEMATOLOGY Protein S Tot 113 60 - 150 10/19 Result Comment: This Medical test was Center developed and its performance characteristi cs
determ ined by [facility]. It has not been cleared or
approv ed by the Food and Drug Administratio n.
Perfor med At: [facility]
[address] [place] [id number]<br/ >Ezequiel Cornejo MD Ph:[phone] HEMATOLOGY Hex Phos N Negative Negative 10/19 [facility] (10/19/18 8:19 AM) [facility] HEMATOLOGY Lup Interp Negative 10/19 [facility] for lupus [facility] Center ant with all tests performed (dRVVT, and hexagonal phospholip id neutraliza tion). CPT: 17527 HEMATOLOGY dRVV Ratio 1.12 <=1.20 10/19 [facility] HEMATOLOGY Protein C Tot 101 60 - 150 10/19 Result Comment: Medical Performed At: Center [facility]
[address] [place] [phone]<br/ >Ezequiel Cornejo MD Ph:[phone] HEMATOLOGY F2 Mutation Negative 10/19 [facility] PCR (10/19/18 8:19 AM) [facility] HEMATOLOGY F2 Mut Interp FACTOR II 10/19 [facility] PT: /2018 [facility] INTERPRETA TION: Molecular analysis for the Factor II (Prothromb in) 28712S> A mutation is negative. Other causes of elevated prothrombi n levels and hereditary forms of venous thrombosis are not ruled out. The test result must be interprete d along with the patients clinical history and relevant laboratory data. Where appropriat e, medical consultati on and genetic counseling should be offered to inform and explain the risk implicatio ns and genetic implicatio ns ASSAY LIMITATION S: The Candy Nayan assay uses FDA-cleare d Real time Polymerase chain reaction (PCR) reagents for the detection and genotyping of the human Factor II (Prothromb in) [id number] mutation. The assay will amplify a 173 base pair fragment of Factor II Gene (FII) containing the Factor II [id number] sequence. The assay is designed to detect the Z08075C mutation only. Other causes of elevated prothrombi n levels and hereditary forms of venous thromboses are not ruled out. The presence of PCR inhibitors may cause invalid results. The performanc e characteri stics of this assay were validated by the [facility] within [facility]. The [facility] Laboratory is authorized under the Clinical Laboratory Improvemen t Amendments of 1988 (CLIA-88) to perform high complexity testing. HEMATOLOGY AT [facility] 131 77 - 140 10/19 [facility] HEMATOLOGY F5 Leiden PCR Negative 10/19 [facility] (10/19/18 8:19 AM) [facility] HEMATOLOGY F5 Leiden FACTOR V 10/19 [facility] Intrp LEIDEN: [facility] INTERPRETA TION: Molecular analysis for the Factor V Leiden E4294S mutation is negative. Other causes of activated protein C resistance and hereditary forms of venous thrombosis are not ruled out. The test result must be interprete d along with the patients clinical history and relevant laboratory data. Where appropriat e, medical consultati on and/or genetic counseling should be offered to inform and explain the risk implicatio ns and genetic implicatio ns of these test results. ASSAY LIMITATION S: The Candy nayan assay uses the FDA-cleare d real time polymerase chain reaction (PCR) reagents for the detection and genotyping of the human Factor V Leiden I3082I mutation. The assay will amplify a 233 base pair fragment of Factor V gene (FV)contai long the Factor V Leiden I3716Q sequence. The assay is designed to detect the Q6874R mutation only. Other causes of activated protein C resistance and hereditary forms of venous thrombosis are not ruled out. The presence of PCR inhibitors may cause invalid results. The performanc e characteri stics of this assay were validated by the [facility] within [facility]. The [facility] Diagnostic Laboratory is authorized under the Clinical Laboratory Improvemen t Amendments of 1988 (CLIA-88) to perform high complexity testing IMMUNOLOGY Rubella IgG >500.0 >=10.0 10/19 [facility] IU/mL [facility] IMMUNOLOGY Mumps IgG 2.6 <=0.8 AI 10/19 [facility] IMMUNOLOGY Rubeola IgG 2.5 <=0.8 AI 10/19 [facility] URINE AND UA RBC 26 0 - 2 10/19 [facility] STOOL [facility] URINE AND UA WBC 25 0 - 5 10/19 [facility] STOOL [facility] URINE AND UA Mucus Few /LPF None Seen 10/19 [facility] STOOL /LPF [facility] URINE AND UA Bacteria Occasional None Seen 10/19 [facility] STOOL /HPF /HPF [facility] URINE AND UA Sq Epi Many /LPF Few /LPF 10/19 [facility] URINE AND UA Spec Grav 1.020 <=1.030 10/19 [facility] URINE AND UA Turbidity Slight Clear 10/19 [facility] STOOL *ABN* /2018 [facility] (10/19/18 8:19 AM) [place] URINE AND UA Color Adrianna Yellow 10/19 [facility] *ABN* [facility] (10/19/18 8:19 AM) [place] URINE AND UA Leuk Est Negative Negative 10/19 [facility] (10/19/18 8:19 AM) [facility] URINE AND UA pH >=9.0 5.0 - 8.0 10/19 [facility] *ABN* [facility] (10/19/18 8:19 AM) [place] URINE AND UA Protein >=300 Negative 10/19 [facility] mg/dL mg/dL [facility] URINE AND UA Bili Negative Negative 10/19 [facility] *NA* [facility] (10/19/18 8:19 AM) [place] URINE AND UA Glucose 500 mg/dL Negative 10/19 [facility] mg/dL [facility] URINE AND UA Ketones Trace Negative 10/19 [facility] *ABN* [facility] (10/19/18 8:19 AM) [place] URINE AND UA Nitrite Negative Negative 10/19 [facility] (10/19/18 8:19 AM) [facility] URINE AND UA <1.0 0.1 - 1.0 10/19 [facility] Urobilinogen /2018 [facility] URINE AND UA Blood Small Negative 10/19 [facility] *ABN* [facility] (10/19/18 8:19 AM) [place] URINE CHEM U Alb 27762.0 10/[address] URINE CHEM U Prot/Creat 81.18 10/[address] URINE CHEM U Creatinine 29.80 10/19 [facility] URINE CHEM U Protein 2419.3 10/19 [facility] BLOOD BANK ABO/RH B POS 09/14 [facility] RESULTS [facility] ANEMIA TIBC 214 228 - 428 09/14 [facility] ANEMIA Iron 63 30 - 160 09/14 [facility] ANEMIA UIBC 151 110 - 370 09/14 [facility] ANEMIA % Satur Fe 29 12 - 57 09/14 [facility] ANEMIA Ferritin Lvl 1294 5 - 204 09/14 [facility] BLOOD BANK OP ABORh Int B POS 09/14 [facility] CHEM PANEL Magnesium Lvl 2.3 1.8 - 2.4 09/14 [facility] CHEM PANEL A/G Ratio 0.8 0.7 - 1.6 09/14 [facility] CHEM PANEL Globulin 4.4 2.7 - 4.2 09/14 [facility] CHEM PANEL B/C Ratio 6 6 - 25 09/14 [facility] CHEM PANEL AGAP 14.1 10.0 - 09/14 [facility] 20. [facility] CHEM PANEL eGFR 8 09/14 Result Comment: The [facility] eGFR is Center calculated using the CKD-EPI formula. In most young, healthy individuals the eGFR will be >90 mL/min/1.73m2 . The eGFR declines with age. An eGFR of 60-89 may be normal in some populations, particularly the elderly, for whom the CKD-EPI formula has not been extensively validated. Use of the eGFR is not recommended in the following populations:< br/>
Angie viduals with unstable creatinine concentration s, including patients and those with serious co-morbid conditions.<b r/>
Patie nts with extremes in muscle mass or diet.

The data above are obtained from the National Kidney Disease Education Program (NKDEP) which additionally recommends that when the eGFR is used in patients with extremes of body mass index for purposes of drug dosing, the eGFR should be multiplied by the estimated BMI. CHEM PANEL Bili Total 1.1 0.2 - 1.3 09/14 [facility] CHEM PANEL Calcium Lvl 9.1 8.5 - 10.5 09/14 [facility] CHEM PANEL Total Protein 8.0 6.4 - 8.4 09/14 [facility] CHEM PANEL Albumin Lvl 3.6 3.5 - 5.0 09/14 [facility] CHEM PANEL CO2 31 24 - 32 09/14 [facility] CHEM PANEL ALT 26 0 - 65 09/14 [facility] CHEM PANEL Creatinine 5.81 0.50 - 09/14 [place] Lvl 1.40 [facility] CHEM PANEL Alk Phos 247 39 - 136 09/14 [facility] CHEM PANEL AST 32 0 - 37 09/14 [facility] CHEM PANEL Sodium Lvl 138 135 - 145 09/14 [facility] CHEM PANEL Potassium Lvl 4.1 3.5 - 5.1 09/14 2018 [facility] CHEM PANEL Chloride Lvl 97 95 - 109 09/14 [facility] CHEM PANEL Glucose Lvl 102 70 - 99 09/14 [facility] CHEM PANEL BUN 34 7 - 22 09/14 2018 [facility] CHEM PANEL Phosphorus 6.2 2.5 - 4.5 09/14 [facility] CHEM PANEL Uric Acid 4.7 2.5 - 7.0 09/14 [facility] CHEM PANEL Vitamin D, 12.7 30.0 - 09/14 [facility] 25-OH, Total 100.0 [facility] DRUG SCREEN Opiate Scr Negative Negative [...] DRUG SCREEN Phencyclidine Negative Negative 09/14 Result [facility] Comment: Medical ScrCutoff:25 Center ng/mL DRUG SCREEN Methadone Scr Negative Negative 09/14 Result Comment: Medical ScrCutoff:20 Center ng/mL DRUG SCREEN Cannab Scr Negative Negative 09/14 Result Comment: Medical ScrCutoff:1 Center ng/mL DRUG SCREEN Tanisha Scr Negative Negative 09/14 Result Comment: Medical ScrCutoff:20 Center ng/mL ENDOCRINOLO S Preg Negative Negative 09/14 [facility] GY *NA* /2018 Medical (09/14/18 7:28 AM) [place] HEMATOLOGY INR 1.15 0.85 - 09/14 [place] 1.17 [facility] HEMATOLOGY PTT 37.3 22.9 - 09/14 [place] 35.8 /2018 [facility] HEMATOLOGY PT 14.5 12.0 - 09/14 [place] 14.7 [facility] HEMATOLOGY MPV 8.7 7.4 - 10.4 09/14 [facility] HEMATOLOGY MCHC 33.2 32.0 - 09/14 [facility] 36.0 [facility] HEMATOLOGY Platelet 149 133 - 450 09/14 [facility] HEMATOLOGY RDW 15.7 11.5 - 09/14 [facility] 14.5 [facility] HEMATOLOGY MCV 90.0 80.0 - 09/14 [place] 98.0 2019 [facility] HEMATOLOGY Hct 35.6 36.0 - 09/14 [place] 48.0 2019 [facility] HEMATOLOGY MCH 29.9 27.0 - 09/14 [place] 31.0 2019 [facility] HEMATOLOGY Hgb 11.8 12.0 - 09/14 [place] 16.0 2019 [facility] HEMATOLOGY RBC 3.95 4.20 - 09/14 [place] 5.40 /2019 [facility] HEMATOLOGY WBC 7.6 3.7 - 10.4 09/14 [facility] HEMATOLOGY Basophils # 0.1 0.0 - 0.2 09/14 [facility] HEMATOLOGY Monocytes # 0.5 0.0 - 0.8 09/14 [facility] HEMATOLOGY Eosinophils # 0.3 0.0 - 0.5 09/14 [facility] HEMATOLOGY Lymphocytes 15.4 20.0 - 09/14 [place] 40.0 2019 [facility] HEMATOLOGY Segs 72.5 45.0 - 09/14 [place] 75.0 /2019 [facility] HEMATOLOGY Lymphocytes # 1.2 1.0 - 5.5 09/14 [facility] HEMATOLOGY Monocytes 6.5 2.0 - 12.0 09/14 [facility] HEMATOLOGY Eosinophils 4.4 0.0 - 4.0 09/14 [facility]2018 [facility] HEMATOLOGY Basophils 1.2 0.0 - 1.0 09/14 [facility]2018 [facility] HEMATOLOGY Neutrophils # 5.5 1.5 - 8.1 09/14 [facility]2018 [facility] IMMUNOLOGY Varicella IgM <0.91 0.00 - 09/14 Result [facility] 0.90 /2018 Comment: [facility] Center Negative <0.91
Borderline 0.91 - 1.09
Positive >1.09
Per formed At: [facility]
[address], [place] [id number]<br/ >Ezequiel Cornejo MD Ph:[phone] IMMUNOLOGY Varicella IgG 2.7 <=0.8 AI 09/14 [facility] IMMUNOLOGY Treponemal Ab Non-Reactive Non 09[facility]14 [facility] (09/14/18 7:28 AM) Center IMMUNOLOGY T-Spot.TB Negative Negative 09/14 [facility] (09/14/18 7:28 AM) [facility] IMMUNOLOGY HSV 1 IgG >8.0 <=0.8 AI 09/14 [facility]2018 [facility] IMMUNOLOGY HSV 2 IgG <0.2 <=0.8 AI 09/14 [facility]2018 [facility] IMMUNOLOGY HIV Ag/Ab 4th Negative Negative 09/14 [facility] *NA* [facility] (09/14/18 7:28 AM) [place] IMMUNOLOGY EBV VCA IgG >8.0 <=0.8 AI 09/14 [facility] IMMUNOLOGY Hep C Ab Negative 09/14 [place] *NA* [facility] (09/14/18 7:28 AM) Center IMMUNOLOGY Hep Bs Ag Negative Negative 09/14 [facility] *NA* [facility] (09/14/18 7:28 AM) Center IMMUNOLOGY Hep B Core Ab Negative Negative 09/14 [facility] *NA* [facility] (09/14/18 7:28 AM) Center IMMUNOLOGY EBV VCA IgM <0.2 <=0.8 AI 09/14 [facility]2018 [facility] IMMUNOLOGY Hep Bs Ab 426.1 <=7.4 09/14 [facility] mIU/mL [facility] IMMUNOLOGY CMV IgM 0.2 09/14 [facility]2018 [facility] IMMUNOLOGY CMV IgG Non Reactive Non 09/14 [facility] *NA* Reactive /2018 Medical (09/14/18 7:28 AM) Center LIPIDS VLDL 22 09/14 [facility] LIPIDS LDL 80 <=99 mg/dL 09/14 [facility] (Calculated) [facility] LIPIDS HDL 50 >=61 mg/dL 09/14 [facility] LIPIDS Chol 152 <=199 09/14 [facility] mg/dL [facility] LIPIDS Trig 110 <=149 09/14 [facility] mg/dL [facility] LIPIDS CHD Risk 3.04 3.90 - 09/14 [facility] 5.80 [facility] PARASITOLOG Strongyloides Negative Negative 09/14 Result [facility] Y - Antibodies Comment: Medical SEROLOGY Performed At: [facility]
[address] [place] [phone]<br/ >Ezequiel Cornejo MD Ph:[phone] PARATHYROID PTH Intact 75.1 18.4 - 09/14 [facility] PROFILE 80.1 [facility] SPECIAL Hgb A1C 4.9 <=5.6 % 09/14 [facility] CHEMISTRY [facility] SPECIAL Cotinine Lvl None 09/14 Result [facility] CHEMISTRY Detected Comment: This Medical test was Center developed and its performance characteristi cs
determ ined by [facility]. It has not been cleared or
approv ed by the Food and Drug Administratio n.
Cotini ne levels greater than 20.0 are consistent with the
use of tobacco or tobacco cessation products.<br/ >Performed At: [facility]
[address], [place] [phone]<br/ >Ezequiel Cornejo MD Ph:[phone] SPECIAL Nicotine Lvl None 09/14 Result [facility] CHEMISTRY Detected Comment: This Medical test was Center developed and its performance characteristi cs
determ ined by [facility]. It has not been cleared or
approv ed by the Food and Drug Administratio n.
Nicoti ne levels greater than 2.0 are consistent with the
use of tobacco or tobacco cessation products. Pathology Reports No Data Provided for This Section Diagnostic Reports No Data Provided for This Section Consultation Notes No Data Provided for This Section Discharge Summaries No Data Provided for This Section History and Physicals No Data Provided for This Section Vital Signs Vital Sign Value Date Comments Source BMI Calculated 37.09 10/19/2018 [facility] Systolic (mm Hg) 163 10/19/2018 [facility] Diastolic (mm Hg) 91 10/19/2018 [facility] Height 146.5 cm 10/19/2018 [facility] Weight 79.6 10/19/2018 [facility] Respitory Rate 19 10/19/2018 [facility] Heart Rate 76 10/19/2018 [facility] BMI Calculated 39.24 09/14/2018 [facility] Height 147 cm 09/14/2018 [facility] Weight 84.8 09/14/2018 [facility] Encounters Location Location Encounter Encounter Reason Attending ADM DC Status Source Details Type Number For Provider Date Date Visit Transplant OP [id number] Macie 09/14 10/14 [facility] Transplant 1 De [facility] Pre Transplant OP [id number] Macie 10/19 11/18 [facility] Transplant 2 De [facility] Pre Procedures Procedure Code Date Perfomer Comments Source section [id number] [facility] Assessment and Plan No Data Provided for This Section Plan of Care No Data Provided for This Section Social History Social History Date Source Social History TypeResponse 09/14/2018 [facility] Alcohol Never Smoking Status Never smoker; Exposure to Tobacco Smoke None; Cigarette Smoking Last 365 Days No; Reg Smoking Cessation Counseling No entered on: 09/14/18 Family History No Data Provided for This Section Advance Directives No Data Provided for This Section Functional Status No Data Provided for This Section
--- OUTSIDE RECORDS SUMMARY | 2019-01-15 23:04 | XMS REPORT ---
:1980 [facility] [address] [place] [address] Care Team Providers Name Role Phone Unavailable Unavailable Unavailable Problems This patient has no known problems. Allergies, Adverse Reactions, Alerts This patient has no known allergies or adverse reactions. Medications This patient has no known medications. Encounters Start End Encounter Admission Attending Care Care Encounter Date/Time Date/Time Type Type Clinicians Facility Department ID 2018-10-18 Inpatient [facility] [id number] 08:59:05 2018-10-19 2018-10-19 Outpatient [facility] [id number] 08:08:00 08:08:00
[2019-01-15] MEDS ORDERED: HYDROCODONE/APAP 5/325 MG TAB ONE (23:36)
[2019-01-15] MEDS ORDERED: KETOROLAC 30 MG/ML INJ ONE (23:36)
--- NOTE | 2019-01-16 00:12 | EDPHYS ---
Physician Documentation [facility] Name: Puja Le Age: 38 yrs Sex: Female : 1980 Arrival Date: 01/15/2019 Time: 23:07 Bed 25 Private MD: ED Physician Brendan Zhang HPI: 01/16 02:58 This 38 yrs old Female presents to ER via Wheelchair with complaints of Knee tw4 Injury. 02:58 The patient presents with an injury, pain, that is acute. The complaints affect the tw4 left knee. Context: The problem was sustained outdoors, resulted from a mis-step, twisting of the extremity, during a fall. Onset: The symptoms/episode began/occurred just prior to arrival. Modifying factors: The symptoms are alleviated by remaining still, the symptoms are aggravated by movement, weight bearing, bending knee. Associated signs and symptoms: The patient has no apparent associated signs or symptoms. Severity of symptoms: At their worst the symptoms were severe, in the emergency department the symptoms are unchanged. The patient has not experienced similar symptoms in the past. 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 - Social history:: Smoking status: Patient/guardian denies using tobacco. - Ebola Screening: : No symptoms or risks identified at this time. ROS: 01/16 02:58 Constitutional: Negative for fever, chills, and weight loss, Eyes: Negative for injury, tw4 pain, redness, and discharge, Cardiovascular: Negative for chest pain, palpitations, and edema, Respiratory: Negative for shortness of breath, cough, wheezing, and pleuritic chest pain, Abdomen/GI: Negative for abdominal pain, nausea, vomiting, diarrhea, and constipation, Back: Negative for injury and pain, Skin: Negative for injury, rash, and discoloration, Neuro: Negative for headache, weakness, numbness, tingling, and seizure. MS/extremity: Positive for pain, swelling, tenderness, Negative for deformity. Exam: 02:58 Constitutional: This is a well developed, well nourished patient who is awake, alert, tw4 and in no acute distress. Head/Face: Normocephalic, atraumatic. Chest/axilla: Normal chest wall appearance and motion. Nontender with no deformity. No lesions are appreciated. Cardiovascular: Regular rate and rhythm with a normal S1 and S2. No gallops, murmurs, or rubs. Normal PMI, no JVD. No pulse deficits. Respiratory: Lungs have equal breath sounds bilaterally, clear to auscultation and percussion. No rales, rhonchi or wheezes noted. No increased work of breathing, no retractions or nasal flaring. Abdomen/GI: Soft, non-tender, with normal bowel sounds. No distension or tympany. No guarding or rebound. No evidence of tenderness throughout. Back: No spinal tenderness. No costovertebral tenderness. Full range of motion. 02:58 Musculoskeletal/extremity: Extremities: noted in the left knee: pain, swelling, tenderness. Vital Signs: 01/15 23:17 BP 164 / 100; Pulse 79; Resp 18; Temp 98.0; Pulse Ox 97% on R/A; Weight 78.93 kg; aa1 Height 5 ft. 0 in. (152.40 cm); Pain 5/10; 01/16 00:22 BP 149 / 99; Pulse 81; Resp 16 S; Temp 98(O); Pulse Ox 97% on R/A; ca1 01/15 23:17 Body Mass Index 33.98 (78.93 kg, 152.40 cm) aa1 MDM: 01/15 23:10 Patient medically screened. tw4 01/16 02:58 Data reviewed: vital signs, nurses notes. Test interpretation: by ED physician or tw4 midlevel provider: plain radiologic studies. Counseling: I had a detailed discussion with the patient and/or guardian regarding: the historical points, exam findings, and any diagnostic results supporting the discharge/admit diagnosis, radiology results. Medication response: Toradol markedly relieved the patient's pain. Response to treatment: the patient's symptoms have markedly improved after treatment, and as a result, I will discharge patient. Special discussion: I discussed with the patient/guardian in detail that at this point there is no indication for admission to the hospital. It is understood, however, that if the symptoms persist or worsen the patient needs to return immediately for re-evaluation. 01/15 23:12 Order name: Knee Left 2 View XRAY tw4 01/16 00:10 Order name: Knee Immobilizer; Complete Time: 00:13 tw4 Administered Medications: 01/15 23:20 Drug: HYDROcodone-acetaminophen 5 mg-325 mg 1 tabs Route: PO; ca1 01/16 00:14 Follow up: Response: No adverse reaction; Pain is decreased ca1 01/15 23:24 Drug: TORadol 60 mg Route: IM; Site: right gluteus; ca1 01/16 00:14 Follow up: Response: No adverse reaction; Pain is decreased ca1 Disposition: 01/16/19 00:10 Discharged to Home. Impression: Sprain of other specified parts of knee. - Condition is Stable. - Discharge Instructions: Knee Sprain. - Prescriptions for Ibuprofen 800 mg Oral Tablet - take 1 tablet by ORAL route every 8 hours As needed take with food; 30 tablet. - Medication Reconciliation Form, Thank You Letter, Antibiotic Education, Prescription Opioid Use form. - Follow up: Private Physician; When: Upon discharge from the Emergency Department; Reason: If symptoms return, Recheck today's complaints, Continuance of care. - Problem is new. - Symptoms have improved. Signatures: Dispatcher [employer] EDMS Shannon Garcia RN RN aa1 Brendan Zhang MD MD tw4 Rafaela Jaquez RN RN ca1 Corrections: (The following items were deleted from the chart) 00:25 00:10 01/16/2019 00:10 Discharged to Home. Impression: Sprain of other specified parts ca1 of knee. Condition is Stable. Forms are Medication Reconciliation Form, Thank You Letter, Antibiotic Education, Prescription Opioid Use. Follow up: Private Physician; When: Upon discharge from the Emergency Department; Reason: If symptoms return, Recheck today's complaints, Continuance of care. Problem is new. Symptoms have improved. tw4 03:00 02:58 Constitutional: Negative for fever, chills, and weight loss, Cardiovascular: tw4 Negative for chest pain, palpitations, and edema, Respiratory: Negative for shortness of breath, cough, wheezing, and pleuritic chest pain, Abdomen/GI: Negative for abdominal pain, nausea, vomiting, diarrhea, and constipation, Back: Negative for injury and pain, MS/Extremity: Negative for injury and deformity, Skin: Negative for injury, rash, and discoloration, tw4
--- NOTE | 2019-01-16 00:12 | ER ---
Nurse's Notes [facility] Name: Puja Le Age: 38 yrs Sex: Female : 1980 Arrival Date: 01/15/2019 Time: 23:07 Bed 25 Private MD: Diagnosis: Sprain of other specified parts of knee Presentation: 01/15 23:13 Presenting complaint: Patient states: she fell earlier today and hurt her L knee. aa1 Transition of care: patient was not received from another setting of care. Onset of symptoms was January 15, 2019. Risk Assessment: Do you want to hurt yourself or someone else? Patient reports no desire to harm self or others. Initial Sepsis Screen: Does the patient meet any 2 criteria? No. Patient's initial sepsis screen is negative. Does the patient have a suspected source of infection? No. Patient's initial sepsis screen is negative. Care prior to arrival: None. 23:13 Method Of Arrival: Wheelchair aa1 23:13 Acuity: KATHRYN 4 aa1 Triage Assessment: 23:17 General: Appears in no apparent distress. comfortable, Behavior is calm, cooperative, aa1 appropriate for age. 23:30 Injury Description:. 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 - Social history:: Smoking status: Patient/guardian denies using tobacco. - Ebola Screening: : No symptoms or risks identified at this time. Screenin:26 Abuse screen: Denies threats or abuse. Denies injuries from another. Nutritional ca1 screening: No deficits noted. Tuberculosis screening: No symptoms or risk factors identified. Fall Risk Fall in past 12 months (25 points). Total Morgan Fall Scale indicates No Risk (0-24 pts). Assessment: 23:26 General: Appears in no apparent distress. uncomfortable, Behavior is calm, cooperative, ca1 appropriate for age. Pain: Complains of pain in left knee Pain does not radiate. Pain currently is 3 out of 10 on a pain scale. at worst was 9 out of 10 on a pain scale. Pain began 2 hours ago. Aggravated by repositioning, weight bearing. Neuro: Level of Consciousness is awake, alert, obeys commands, Oriented to person, place, time, situation. Cardiovascular: Heart tones S1 S2 present Capillary refill < 3 seconds Patient's skin is warm and dry. Respiratory: Airway is patent Respiratory effort is even, unlabored, Respiratory pattern is regular, symmetrical, Breath sounds are clear bilaterally. GI: Abdomen is round non-distended, Bowel sounds present X 4 quads. Abd is soft and non tender X 4 quads. : No deficits noted. No signs and/or symptoms were reported regarding the genitourinary system. EENT: No deficits noted. No signs and/or symptoms were reported regarding the EENT system. Derm: Skin is intact, is healthy with good turgor, Skin is pink, warm \T\ dry. Musculoskeletal: Circulation, motion, and sensation intact. Capillary refill < 3 seconds, Range of motion: limited in left knee. 01/16 00:22 Reassessment: Patient appears in no apparent distress at this time. Patient is alert, ca1 oriented x 3, equal unlabored respirations, skin warm/dry/pink. Knee immobilizer applied on L knee. Vital Signs: 01/15 23:17 BP 164 / 100; Pulse 79; Resp 18; Temp 98.0; Pulse Ox 97% on R/A; Weight 78.93 kg; aa1 Height 5 ft. 0 in. (152.40 cm); Pain 5/10; 01/16 00:22 BP 149 / 99; Pulse 81; Resp 16 S; Temp 98(O); Pulse Ox 97% on R/A; ca1 01/15 23:17 Body Mass Index 33.98 (78.93 kg, 152.40 cm) aa1 ED Course: 01/15 23:07 Patient arrived in ED. ag3 23:10 Brendan Zhang MD is Attending Physician. tw4 23:10 Rafaela Jaquez, BRIAN is Primary Nurse. ca1 23:14 Triage completed. aa1 23:17 Arm band placed on right wrist. aa1 23:25 X-ray completed. Portable x-ray completed in exam room. Patient tolerated procedure kw well. 23:26 Patient has correct armband on for positive identification. Bed in low position. Call ca1 light in reach. Side rails up X 1. Pulse ox on. NIBP on. Warm blanket given. Pillow given. 23:28 Knee Left 2 View XRAY In Process Unspecified. EDMS 01/16 00:22 No provider procedures requiring assistance completed. Patient did not have IV access ca1 during this emergency room visit. Knee immobilizer applied on left knee. Administered Medications: 01/15 23:20 Drug: HYDROcodone-acetaminophen 5 mg-325 mg 1 tabs Route: PO; ca1 01/16 00:14 Follow up: Response: No adverse reaction; Pain is decreased ca1 01/15 23:24 Drug: TORadol 60 mg Route: IM; Site: right gluteus; ca1 01/16 00:14 Follow up: Response: No adverse reaction; Pain is decreased ca1 Outcome: 00:10 Discharge ordered by . brielle 00:22 Discharged to home via wheelchair, with family. ca1 00:22 Condition: stable 00:22 Discharge instructions given to patient, Instructed on discharge instructions, follow up and referral plans. Demonstrated understanding of instructions, follow-up care. 00:25 Patient left the ED. ca1 Signatures: Dispatcher [employer] EDMS Shannon Garcia, RN RN aa1 Miri Lincoln Terrence, MD MD tw4 Luz Queen ag3 Rafaela Jaquez, RN RN ca1
--- NOTE | 2019-01-16 08:07 | RAD REPORT ---
EXAM DESCRIPTION: RAD - Knee Left 2 View - 01/15/2019 11:26 pm CLINICAL HISTORY: Left knee pain FINDINGS: Limited two view series Diffuse edema within the subcutaneous tissues and small joint effusion No fracture or dislocation seen. If patient continues to have symptoms to suggest an occult fracture, ligamentous or meniscal injury MRI would be recommended
== END 2019-01-16 00:25 | disposition home or self-care (01) ==
LOC: ER 23:01
DX: S83.92XA Sprain of unspecified site of left knee, initial encounter (principal); W01.0XXA Fall on same level from slipping, tripping and stumbling without subsequent striking against object, initial encounter; I12.0 Hypertensive chronic kidney disease with stage 5 chronic kidney disease or end stage renal disease; N18.6 End stage renal disease; Z99.2 Dependence on renal dialysis
CPT/HCPCS: 96372; 99284

== ENCOUNTER 2019-01-24 15:01 | Emergency (ER) | payer OTHER ==
--- OUTSIDE RECORDS SUMMARY | 2019-01-24 15:04 | XMS REPORT | Continuity of Care Document ---
:1980 Author Organization [employer] [facility] Care Team Providers Name Role Phone [facility] Information [facility] Unavailable Unavailable Problems Problem Status Onset Classification Date Comments Source Date Reported NEW EVALUATION Active 10/15/[address] RENAL/DO NOT USE Active 09/15/19 [facility] FOR [facility]ARG[facility] F/C 19 Medical NOTES O Center CHF (Confirmed) Resolved Problem 11/19/2018 [facility] Hypertension Resolved Problem 11/19/2018 [facility] Hyperthyroidism Resolved Problem 11/19/2018 [facility] Pleural effusion Resolved Problem 11/19/2018 [facility] 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[facility] osteodystrophy [facility] Restless leg Resolved Problem 11/19/2018 [facility] Medications No Data Provided for This Section Allergies, Adverse Reactions, Alerts Substance Category Reaction Severity Reaction Status Date Comments Source type Reported vancomycin Assertion Drug Active [facility] Zosyn Assertion Drug Active [facility] Immunizations No Data Provided for This [...] Administratio n.
Perfor med At: [facility]
[address] [place], [place] [id number]<br/ >Ezequiel Cornejo MD Ph:[phone] HEMATOLOGY MTHFR DNA Comment 10/19 Result [facility] Comment: Medical Analysis
Result: Center NEGATIVE (No mutation identified)<b r/>Interpreta tion:
Thi s patient's sample was analyzed for the MTHFR mutations<br/ >C677T and E7959G. No mutation was identified. The diagnosis<br/ >of [...] common variants in the MTHFR gene, c.655c>T
(p.Ygh283Mlju ), referred to as C677T, and c.1286A>C (p.Qxv370Lgq) ,
referre d to as P1589D. Individuals homozygous for C677T (two copies
of [...] the absence of
hyperh omocysteinemi a. The C2812E variant is not associated with
elev ated homocysteine levels unless a C677T variant is also present;
however, the clinical significance of heterozygosit y for both C677T
and O8941V is controversial . Population data suggest that [...] health care providers to discuss<br/&g t;results at [phone] E.

Methodol ogy:
DNA analysis of the [...]
David Shelley, PhD, FACMG
Per formed At: [employer]
[address] [id number]<br/ >Luna Barrientos MD Ph:[phone] HEMATOLOGY Protein S Tot 113 60 - 150 10/19 Result Comment: This Medical test was Center developed and its performance characteristi cs
determ ined by [facility]. It has not been cleared or
approv ed by the Food and Drug Administratio n.
Perfor med At: [facility]
[address] [place] [id number]<br/ >Ezequiel Cornejo MD Ph:[phone] HEMATOLOGY Hex Phos N Negative Negative 10/19 [facility] (10/19/18 8:19 AM) [facility] HEMATOLOGY Lup Interp Negative 10/19 [facility] for lupus [facility] Center ant with all tests performed (dRVVT, and hexagonal phospholip id neutraliza tion). CPT: 57980 HEMATOLOGY dRVV Ratio 1.12 <=1.20 10/19 [facility] HEMATOLOGY Protein C Tot 101 60 - 150 10/19 Result Comment: Medical Performed At: Center [facility]
[address] [place] [id number]<br/ >Ezequiel Cornejo MD Ph:[phone] HEMATOLOGY F2 Mutation Negative 10/19 [facility] PCR (10/19/18 8:19 AM) [facility] HEMATOLOGY F2 Mut Interp FACTOR II 10/19 [facility] PT: /2018 [facility] INTERPRETA TION: Molecular analysis for the Factor II (Prothromb in) 69050U> A mutation is negative. Other causes of [...] of the human Factor II (Prothromb in) [id number] mutation. The assay will amplify a 173 base pair fragment of Factor II Gene (FII) containing the Factor II [id number] sequence. The assay is designed to detect the S80090X mutation only. Other causes of elevated prothrombi n levels and hereditary forms of venous thromboses are not ruled out. The presence of PCR inhibitors may cause invalid results. The performanc e characteri stics of this assay were validated by the [facility] within [facility]. The [facility] Laboratory is authorized under the Clinical Laboratory Improvemen t Amendments of 1988 (CLIA-88) to perform high complexity testing. HEMATOLOGY AT [facility] 131 77 - 140 10/19 [facility] HEMATOLOGY F5 Leiden PCR Negative 10/19 [facility] (10/19/18 8:19 AM) [facility] HEMATOLOGY F5 Leiden FACTOR V 10/19 [facility] Intrp LEIDEN: [facility] INTERPRETA TION: Molecular analysis for the Factor V Leiden M5532H mutation is negative. Other causes of activated [...] genotyping of the human Factor V Leiden L9324B mutation. The assay will amplify a 233 base pair fragment of Factor V gene (FV)contai long the Factor V Leiden M7992R sequence. The assay is designed to detect the M1304W mutation only. Other causes of activated protein C resistance and hereditary forms of venous thrombosis are not ruled out. The presence of PCR inhibitors may cause invalid results. The performanc e characteri stics of this assay were validated by the [facility] within [facility]. The [facility] Laboratory is authorized under the Clinical Laboratory Improvemen t Amendments of 1988 (CLIA-88) to perform high complexity testing IMMUNOLOGY Rubella IgG >500.0 >=10.0 10/19 [facility] IU/mL [facility] IMMUNOLOGY Mumps IgG 2.6 <=0.8 AI 10/19 [facility] IMMUNOLOGY Rubeola IgG 2.5 <=0.8 AI 10/19 [facility] URINE AND UA RBC 26 0 - 2 10/19 [facility] STOOL [facility] URINE AND UA WBC 25 0 - 5 10/19 [facility] STOOL [facility] URINE AND UA Mucus Few /LPF None Seen 10/19 [facility] STOOL /LPF [facility] URINE AND UA Bacteria Occasional None Seen 10/19 [facility] STOOL /HPF /HPF [facility] URINE AND UA Sq Epi Many /LPF Few /LPF 10/19 [facility] URINE AND UA Spec Grav 1.020 <=1.030 10/19 [facility] URINE AND UA Turbidity Slight Clear 10/19 [facility] STOOL *ABN* /2018 [facility] (10/19/18 8:19 AM) [place] URINE AND UA Color Adrianna Yellow 10/19 [facility] *ABN* [facility] (10/19/18 8:19 AM) [place] URINE AND UA Leuk Est Negative Negative 10/19 [facility] (10/19/18 8:19 AM) [facility] URINE AND UA pH >=9.0 5.0 - 8.0 10/19 [facility] *ABN* [facility] (10/19/18 8:19 AM) [place] URINE AND UA Protein >=300 Negative 10/19 [facility] mg/dL mg/dL [facility] URINE AND UA Bili Negative Negative 10/19 [facility] *NA* [facility] (10/19/18 8:19 AM) [place] URINE AND UA Glucose 500 mg/dL Negative 10/19 [facility] mg/dL [facility] URINE AND UA Ketones Trace Negative 10/19 [facility] *ABN* [facility] (10/19/18 8:19 AM) [place] URINE AND UA Nitrite Negative Negative 10/19 [facility] (10/19/18 8:19 AM) [facility] URINE AND UA <1.0 0.1 - 1.0 10/19 [facility] Urobilinogen /2018 [facility] URINE AND UA Blood Small Negative 10/19 [facility] *ABN* [facility] (10/19/18 8:19 AM) [place] URINE CHEM U Alb 74085.0 10/[address] URINE CHEM U Prot/Creat 81.18 10/[address] URINE CHEM U Creatinine 29.80 10/19 [facility] URINE CHEM U Protein 2419.3 10/19 [facility] BLOOD BANK ABO/RH B POS 09/14 [facility] RESULTS [facility] ANEMIA TIBC 214 228 - 428 09/14 [facility] ANEMIA Iron 63 30 - 160 09/14 [facility] ANEMIA UIBC 151 110 - 370 09/14 [facility] ANEMIA % Satur Fe 29 12 - 57 09/14 [facility] ANEMIA Ferritin Lvl 1294 5 - 204 09/14 [facility] BLOOD BANK OP ABORh Int B POS 09/14 [facility] CHEM PANEL Magnesium Lvl 2.3 1.8 - 2.4 09/14 [facility] CHEM PANEL A/G Ratio 0.8 0.7 - 1.6 09/14 [facility] CHEM PANEL Globulin 4.4 2.7 - 4.2 09/14 [facility] CHEM PANEL B/C Ratio 6 6 - 25 09/14 [facility] CHEM PANEL AGAP 14.1 10.0 - 09/14 [facility] 20. [facility] CHEM PANEL eGFR 8 09/14 Result Comment: The [facility] eGFR is Center calculated using [...] Bili Total 1.1 0.2 - 1.3 09/14 [facility] CHEM PANEL Calcium Lvl 9.1 8.5 - 10.5 09/14 [facility] CHEM PANEL Total Protein 8.0 6.4 - 8.4 09/14 [facility] CHEM PANEL Albumin Lvl 3.6 3.5 - 5.0 09/14 [facility] CHEM PANEL CO2 31 24 - 32 09/14 [facility] CHEM PANEL ALT 26 0 - 65 09/14 [facility] CHEM PANEL Creatinine 5.81 0.50 - 09/14 [place] Lvl 1.40 [facility] CHEM PANEL Alk Phos 247 39 - 136 09/14 [facility] CHEM PANEL AST 32 0 - 37 09/14 [facility] CHEM PANEL Sodium Lvl 138 135 - 145 09/14 [facility] CHEM PANEL Potassium Lvl 4.1 3.5 - 5.1 09/14 2018 [facility] CHEM PANEL Chloride Lvl 97 95 - 109 09/14 [facility] CHEM PANEL Glucose Lvl 102 70 - 99 09/14 [facility] CHEM PANEL BUN 34 7 - 22 09/14 2018 [facility] CHEM PANEL Phosphorus 6.2 2.5 - 4.5 09/14 [facility] CHEM PANEL Uric Acid 4.7 2.5 - 7.0 09/14 [facility] CHEM PANEL Vitamin D, 12.7 30.0 - 09/14 [facility] 25-OH, Total 100.0 [facility] DRUG SCREEN Opiate Scr Negative Negative 09/14 [...] DRUG SCREEN Phencyclidine Negative Negative 09/14 Result [facility] Comment: Medical ScrCutoff:25 Center ng/mL DRUG SCREEN Methadone Scr Negative Negative 09/14 Result Comment: Medical ScrCutoff:20 Center ng/mL DRUG SCREEN Cannab Scr Negative Negative 09/14 Result Comment: Medical ScrCutoff:1 Center ng/mL DRUG SCREEN Tanisha Scr Negative Negative 09/14 Result Comment: Medical ScrCutoff:20 Center ng/mL ENDOCRINOLO S Preg Negative Negative 09/14 [facility] GY *NA* /2018 Medical (09/14/18 7:28 AM) [place] HEMATOLOGY INR 1.15 0.85 - 09/14 [place] 1.17 [facility] HEMATOLOGY PTT 37.3 22.9 - 09/14 [place] 35.8 /2018 [facility] HEMATOLOGY PT 14.5 12.0 - 09/14 [place] 14.7 [facility] HEMATOLOGY MPV 8.7 7.4 - 10.4 09/14 [facility] HEMATOLOGY MCHC 33.2 32.0 - 09/14 [facility] 36.0 [facility] HEMATOLOGY Platelet 149 133 - 450 09/14 [facility] HEMATOLOGY RDW 15.7 11.5 - 09/14 [facility] 14.5 [facility] HEMATOLOGY MCV 90.0 80.0 - 09/14 [place] 98.0 2019 [facility] HEMATOLOGY Hct 35.6 36.0 - 09/14 [place] 48.0 2019 [facility] HEMATOLOGY MCH 29.9 27.0 - 09/14 [place] 31.0 2019 [facility] HEMATOLOGY Hgb 11.8 12.0 - 09/14 [place] 16.0 2019 [facility] HEMATOLOGY RBC 3.95 4.20 - 09/14 [place] 5.40 /2019 [facility] HEMATOLOGY WBC 7.6 3.7 - 10.4 09/14 [facility] HEMATOLOGY Basophils # 0.1 0.0 - 0.2 09/14 [facility] HEMATOLOGY Monocytes # 0.5 0.0 - 0.8 09/14 [facility] HEMATOLOGY Eosinophils # 0.3 0.0 - 0.5 09/14 [facility] HEMATOLOGY Lymphocytes 15.4 20.0 - 09/14 [place] 40.0 2019 [facility] HEMATOLOGY Segs 72.5 45.0 - 09/14 [place] 75.0 /2019 [facility] HEMATOLOGY Lymphocytes # 1.2 1.0 - 5.5 09/14 [facility] HEMATOLOGY Monocytes 6.5 2.0 - 12.0 09/14 [facility] HEMATOLOGY Eosinophils 4.4 0.0 - 4.0 09/14 [facility]2018 [facility] HEMATOLOGY Basophils 1.2 0.0 - 1.0 09/14 [facility]2018 [facility] HEMATOLOGY Neutrophils # 5.5 1.5 - 8.1 09/14 [facility]2018 [facility] IMMUNOLOGY Varicella IgM <0.91 0.00 - 09/14 Result [facility] 0.90 /2018 Comment: [facility] Center Negative <0.91
Borderline 0.91 - 1.09
Positive >1.09
Per formed At: [facility]
[address] [place], [place] [id number]<br/ >Ezequiel Cornejo MD Ph:[phone] IMMUNOLOGY Varicella IgG 2.7 <=0.8 AI 09/14 [facility] IMMUNOLOGY Treponemal Ab Non-Reactive Non 09/14 [facility] (09/14/18 7:28 AM) Center IMMUNOLOGY T-Spot.TB Negative Negative 09/14 [facility] (09/14/18 7:28 AM) [facility] IMMUNOLOGY HSV 1 IgG >8.0 <=0.8 AI 09/14 [facility]2018 [facility] IMMUNOLOGY HSV 2 IgG <0.2 <=0.8 AI 09/14 [facility]2018 [facility] IMMUNOLOGY HIV Ag/Ab 4th Negative Negative 09/14 [facility] *NA* [facility] (09/14/18 7:28 AM) [place] IMMUNOLOGY EBV VCA IgG >8.0 <=0.8 AI 09/14 [facility] IMMUNOLOGY Hep C Ab Negative 09/14 [place] *NA* [facility] (09/14/18 7:28 AM) Center IMMUNOLOGY Hep Bs Ag Negative Negative 09/14 [facility] *NA* [facility] (09/14/18 7:28 AM) Center IMMUNOLOGY Hep B Core Ab Negative Negative 09/14 [facility] *NA* [facility] (09/14/18 7:28 AM) Center IMMUNOLOGY EBV VCA IgM <0.2 <=0.8 AI 09/14 [facility]2018 [facility] IMMUNOLOGY Hep Bs Ab 426.1 <=7.4 09/14 [facility] mIU/mL [facility] IMMUNOLOGY CMV IgM 0.2 09/14 [facility]2018 [facility] IMMUNOLOGY CMV IgG Non Reactive Non 09/14 [facility] *NA* Reactive /2018 Medical (09/14/18 7:28 AM) Center LIPIDS VLDL 22 09/14 [facility] LIPIDS LDL 80 <=99 mg/dL 09/14 [facility] (Calculated) [facility] LIPIDS HDL 50 >=61 mg/dL 09/14 [facility] LIPIDS Chol 152 <=199 09/14 [facility] mg/dL [facility] LIPIDS Trig 110 <=149 09/14 [facility] mg/dL [facility] LIPIDS CHD Risk 3.04 3.90 - 09/14 [facility] 5.80 [facility] PARASITOLOG Strongyloides Negative Negative 09/14 Result [facility] Y - Antibodies Comment: Medical SEROLOGY Performed At: [facility]
[address] [place] [phone]<br/ >Ezequiel Cornejo MD Ph:[phone] PARATHYROID PTH Intact 75.1 18.4 - 09/14 [facility] PROFILE 80.1 [facility] SPECIAL Hgb A1C 4.9 <=5.6 % 09/14 [facility] CHEMISTRY [facility] SPECIAL Cotinine Lvl None 09/14 Result [facility] CHEMISTRY Detected Comment: This Medical test was Center developed and its performance characteristi cs
determ ined by [facility]. It has not been cleared or
approv ed by the Food and Drug Administratio n.
Cotini ne levels greater than 20.0 are consistent with the
use of tobacco or tobacco cessation products.<br/ >Performed At: [facility]
[address] [place], [place] [phone]<br/ >Ezequiel Cornejo MD Ph:[phone] SPECIAL Nicotine Lvl None 09/14 Result [facility] CHEMISTRY Detected Comment: This Medical test was [...] Date Comments Source BMI Calculated 37.09 10/19/2018 [facility] Systolic (mm Hg) 163 10/19/2018 [facility] Diastolic (mm Hg) 91 10/19/2018 [facility] Height 146.5 cm 10/19/2018 [facility] Weight 79.6 10/19/2018 [facility] Respitory Rate 19 10/19/2018 [facility] Heart Rate 76 10/19/2018 [facility] BMI Calculated 39.24 09/14/2018 [facility] Height 147 cm 09/14/2018 [facility] Weight 84.8 09/14/2018 [facility] Encounters Location Location Encounter Encounter Reason Attending ADM DC Status Source Details Type Number For Provider Date Date Visit Transplant OP [id number] Macie 09/14 10/14 [facility] Transplant 1 De [facility] Pre Transplant OP [id number] Macie 10/19 11/18 [facility] Transplant 2 De [facility] Pre Procedures Procedure Code Date Perfomer Comments Source section [id number] [facility] Assessment and Plan No Data Provided for This Section Plan of Care No Data Provided for This Section Social History Social History Date Source Social History TypeResponse 09/14/2018 [facility] Alcohol Never Smoking Status Never smoker; Exposure to Tobacco Smoke None; Cigarette Smoking Last 365 Days No; Reg Smoking Cessation Counseling No entered on: 09/14/18 Family History No Data Provided for This Section Advance Directives No Data Provided for This Section Functional Status No Data Provided for This Section
--- OUTSIDE RECORDS SUMMARY | 2019-01-24 15:05 | XMS REPORT ---
:1980 Author Organization [facility] Address [address] [place] [address] Care Team Providers Name Role Phone Unavailable Unavailable Unavailable Problems This patient has no known problems. Allergies, Adverse Reactions, Alerts This patient has no known allergies or adverse reactions. Medications This patient has no known medications. Encounters Start End Encounter Admission Attending Care Care Encounter Date/Time Date/Time Type Type Clinicians Facility Department ID 2018-10-18 Inpatient [facility] [id number] 08:59:05 2018-10-19 2018-10-19 Outpatient [facility] [id number] 08:08:00 08:08:00
[2019-01-24] MEDS ORDERED: HYDROCODONE/APAP 7.5/325 MG TAB ONE (16:12)
--- NOTE | 2019-01-24 16:19 | ER ---
Nurse's Notes [facility] Name: Puja Le Age: 38 yrs Sex: Female : 1980 Arrival Date: 01/24/2019 Time: 15:02 Bed 28 Private MD: Edgard Vance Diagnosis: Pain in left knee Presentation: 01/24 15:06 Presenting complaint: Patient states: i feel last week and my L leg is hurting, now my hj L knee to L lower leg is bruised and swollen and its been going on for a week now; dialysis pt;. Transition of care: patient was not received from another setting of care. Onset of symptoms was January 24, 2019. Risk Assessment: Do you want to hurt yourself or someone else? Patient reports no desire to harm self or others. Initial Sepsis Screen: Does the patient meet any 2 criteria? No. Patient's initial sepsis screen is negative. Does the patient have a suspected source of infection? No. Patient's initial sepsis screen is negative. Care prior to arrival: None. 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 - Social history:: Smoking status: unknown. - Ebola Screening: : No symptoms or risks identified at this time. Screenin:30 Abuse screen: Denies threats or abuse. Denies injuries from another. Nutritional mg2 screening: No deficits noted. Tuberculosis screening: No symptoms or risk factors identified. Fall Risk Fall in past 12 months (25 points). Assessment: 16:29 General: Appears in no apparent distress. comfortable, Behavior is calm, cooperative. mg2 Pain: Complains of pain in left leg. Neuro: Level of Consciousness is awake, alert, obeys commands, Oriented to person, place, time, situation. Cardiovascular: Capillary refill < 3 seconds Patient's skin is warm and dry. Respiratory: Airway is patent Respiratory effort is even, unlabored, Respiratory pattern is regular, symmetrical. GI: No signs and/or symptoms were reported involving the gastrointestinal system. : No signs and/or symptoms were reported regarding the genitourinary system. EENT: No signs and/or symptoms were reported regarding the EENT system. Derm: Skin is intact, is healthy with good turgor, Skin is pink, warm \T\ dry. normal. Musculoskeletal: Circulation, motion, and sensation intact. Capillary refill < 3 seconds, Swelling present in left leg. Vital Signs: 15:08 BP 162 / 71; Pulse 78; Resp 18; Temp 98.3(TE); Pulse Ox 98% on R/A; Weight 77.11 kg; hj Height 5 ft. 0 in. (152.40 cm); Pain 5/10; 16:30 BP 155 / 79; Pulse 78; Resp 18; Temp 98.2; Pulse Ox 100% on R/A; Pain 0/10; mg2 15:08 Body Mass Index 33.20 (77.11 kg, 152.40 cm) ED Course: 15:02 Patient arrived in ED. cl3 15:02 Edgard Vance MD is Private Physician. cl3 15:07 Triage completed. hj 15:08 Arm band placed on. hj 15:47 Cee Dubon FNP-C is [facility]. kb 15:47 Gennaro Abbott MD is Attending Physician. kb 15:53 Ricardo Vyas, BRIAN is Primary Nurse. mg2 16:07 US Extremity Venous Unilateral Ltd In Process Unspecified. EDMS 16:31 Patient has correct armband on for positive identification. mg2 16:31 No provider procedures requiring assistance completed. Patient did not have IV access mg2 during this emergency room visit. Administered Medications: 15:58 Drug: [place] (7.5 mg-325 mg) 1 tabs Route: PO; mg2 16:30 Follow up: Response: No adverse reaction; Marked relief of symptoms mg2 Outcome: 16:18 Discharge ordered by . kb 16:32 Discharged to home ambulatory, with family. mg2 16:32 Condition: stable 16:32 Discharge instructions given to patient, family, Instructed on discharge instructions, follow up and referral plans. medication usage, Demonstrated understanding of instructions, follow-up care, medications, Prescriptions given X 1. 16:34 Patient left the ED. mg2 Signatures: Dispatcher [employer] EDPR Cee Dubon FNP-C FNP-CkAndrea Miller, RN RN Ricardo Zaidi, BRIAN RN mg2 Lexus Moralez cl3 Corrections: (The following items were deleted from the chart) 15:10 15:08 Pulse 78bpm; Resp 18bpm; Pulse Ox 98% RA; Temp 98.3F Temporal; 77.11 kg; Height 5 hj ft. 0 in.; BMI: 33.2; Pain 5/10; hj
--- NOTE | 2019-01-24 16:19 | EDPHYS ---
Physician Documentation [facility] Name: Puja Le Age: 38 yrs Sex: Female : 1980 Arrival Date: 01/24/2019 Time: 15:02 Bed 28 Private MD: Edgard Vance ED Physician Gennaro Abbott HPI: 01/24 16:24 This 38 yrs old Female presents to ER via Ambulatory with complaints of Leg kb Swelling. 16:24 The patient presents with an injury, pain, swelling, tenderness. The complaints affect kb the left quadriceps, left knee and left mccray. Context: The problem was sustained at home, resulted from the patient falling, the patient can fully bear weight, the patient is able to ambulate. Onset: The symptoms/episode began/occurred 1 week(s) ago. Severity of symptoms: At their worst the symptoms were moderate, in the emergency department the symptoms are unchanged. The patient has experienced a previous episode. The patient has been recently seen at the [facility] Emergency Department, last week. 16:31 Modifying factors: The symptoms are alleviated by nothing. the symptoms are aggravated kb by nothing. Associated signs and symptoms: Pertinent positives: swelling. Pt reports she fell onto left knee a week ago, came here and the x-ray did not show a fracture. States the swelling, bruising and pain have gotten worse. States PCP is out of town so she has not been able to follow up . 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 - Social history:: Smoking status: unknown. - Ebola Screening: : No symptoms or risks identified at this time. ROS: 16:27 Constitutional: Negative for fever, chills, and weight loss, Cardiovascular: Negative kb for chest pain, palpitations, and edema, Respiratory: Negative for shortness of breath, cough, wheezing, and pleuritic chest pain, Abdomen/GI: Negative for abdominal pain, nausea, vomiting, diarrhea, and constipation, Neuro: Negative for headache, weakness, numbness, tingling, and seizure. 16:27 MS/extremity: Positive for injury or acute deformity, ecchymosis, pain, swelling, tenderness. Exam: 16:27 Constitutional: This is a well developed, well nourished patient who is awake, alert, kb and in no acute distress. Head/Face: Normocephalic, atraumatic. Neck: Trachea midline, no thyromegaly or masses palpated, and no cervical lymphadenopathy. Supple, full range of motion without nuchal rigidity, or vertebral point tenderness. No Meningismus. Chest/axilla: Normal chest wall appearance and motion. Nontender with no deformity. No lesions are appreciated. Cardiovascular: Regular rate and rhythm with a normal S1 and S2. No gallops, murmurs, or rubs. Normal PMI, no JVD. No pulse deficits. Respiratory: Lungs have equal breath sounds bilaterally, clear to auscultation and percussion. No rales, rhonchi or wheezes noted. No increased work of breathing, no retractions or nasal flaring. Abdomen/GI: Soft, non-tender, with normal bowel sounds. No distension or tympany. No guarding or rebound. No evidence of tenderness throughout. Back: No spinal tenderness. No costovertebral tenderness. Full range of motion. Neuro: Awake and alert, GCS 15, oriented to person, place, time, and situation. Cranial nerves II-XII grossly intact. Motor strength 5/5 in all extremities. Sensory grossly intact. Cerebellar exam normal. Normal gait. 16:27 Musculoskeletal/extremity: Extremities: grossly normal except: noted in the left mccray and left knee and left quadriceps: ecchymosis, pain, swelling, tenderness, ROM: intact in all extremities, Circulation is intact in all extremities. Sensation intact. Weight bearing: able to fully bear weight. Vital Signs: 15:08 BP 162 / 71; Pulse 78; Resp 18; Temp 98.3(TE); Pulse Ox 98% on R/A; Weight 77.11 kg; hj Height 5 ft. 0 in. (152.40 cm); Pain 5/10; 16:30 BP 155 / 79; Pulse 78; Resp 18; Temp 98.2; Pulse Ox 100% on R/A; Pain 0/10; mg2 15:08 Body Mass Index 33.20 (77.11 kg, 152.40 cm) hj MDM: 15:47 Patient medically screened. kb 16:18 Data reviewed: vital signs, nurses notes. Data interpreted: Pulse oximetry: on room air kb is 98 %. Interpretation: normal. Counseling: I had a detailed discussion with the patient and/or guardian regarding: the historical points, exam findings, and any diagnostic results supporting the discharge/admit diagnosis, radiology results, the need for outpatient follow up, a orthopedic surgeon, to return to the emergency department if symptoms worsen or persist or if there are any questions or concerns that arise at home. 16:32 ED course: Educated on radiologist's recommendation for MRI if symptoms persist on kb previous x-ray. Verbal understanding received. list of orthopedists given to pt. 01/24 15:48 Order name: US Extremity Venous Unilateral Ltd kb Administered Medications: 15:58 Drug: [place] (7.5 mg-325 mg) 1 tabs Route: PO; mg2 16:30 Follow up: Response: No adverse reaction; Marked relief of symptoms mg2 Disposition: 18:22 Co-signature as Attending Physician, Gennaro Abbott MD. rn Disposition: 01/24/19 16:18 Discharged to Home. Impression: Pain in left knee. - Condition is Stable. - Discharge Instructions: Knee Pain, [id number]. - Prescriptions for Diclofenac Sodium 75 mg Oral Tablet, Delayed Release (E.C.) - take 1 tablet by ORAL route 2 times per day As needed; 30 tablet. - Medication Reconciliation Form, Thank You Letter, Antibiotic Education, Prescription Opioid Use form. - Follow up: Emergency Department; When: As needed; Reason: Worsening of condition. Follow up: Private Physician; When: 2 - 3 days; Reason: Recheck today's complaints, Continuance of care, Re-evaluation by your physician. Signatures: Dispatcher [employer] EDMS Cee Dubon, SUPERVISOR LANDSCAPE-C SUPERVISOR LANDSCAPE-Ckb Gennaro Abbott MD MD rn Joaquin, Henry, RN RN hj Gardose, Michele, RN RN mg2 Corrections: (The following items were deleted from the chart) 16:34 16:18 01/24/2019 16:18 Discharged to Home. Impression: Pain in left knee. Condition is mg2 Stable. Forms are Medication Reconciliation Form, Thank You Letter, Antibiotic Education, Prescription Opioid Use. Follow up: Emergency Department; When: As needed; Reason: Worsening of condition. Follow up: Private Physician; When: 2 - 3 days; Reason: Recheck today's complaints, Continuance of care, Re-evaluation by your physician. kb
--- NOTE | 2019-01-24 16:56 | RAD REPORT ---
EXAM DESCRIPTION: US - Extremity Venous Uni Ltd - 01/24/2019 4:08 pm CLINICAL HISTORY: Left leg pain and swelling COMPARISON: None. TECHNIQUE: Real-time sonographic evaluation of the left lower extremity deep venous system was perfo rmed. FINDINGS: Normal compressibility, flow augmentation, phasic flow and spontaneous flow are identified in the left lower extremity common femoral, superficial femoral, popliteal and posterior tibial vein s. No intraluminal filling defects seen. IMPRESSION: No DVT in the left lower extremity.
== END 2019-01-24 16:34 | disposition home or self-care (01) ==
LOC: ER 15:01
DX: M25.562 Pain in left knee (principal); M79.89 Other specified soft tissue disorders; I12.0 Hypertensive chronic kidney disease with stage 5 chronic kidney disease or end stage renal disease; N18.6 End stage renal disease; Z99.2 Dependence on renal dialysis; Z88.0 Allergy status to penicillin
CPT/HCPCS: 93971; 99283

== ENCOUNTER 2019-08-23 21:20 | Emergency (ER) | payer OTHER ==
--- OUTSIDE RECORDS SUMMARY | 2019-08-23 21:22 | XMS REPORT ---
:1980 [facility] Address [address] [place] [address] Care Team Providers Name Role Phone Unavailable Unavailable Unavailable Problems This patient has no known problems. Allergies, Adverse Reactions, Alerts This patient has no known allergies or adverse reactions. Medications This patient has no known medications. Encounters Start End Encounter Admission Attending Care Care Encounter Date/Time Date/Time Type Type Clinicians Facility Department ID 2018-10-18 Inpatient [facility] [id number] 08:59:05 2018-10-19 2018-10-19 Outpatient [facility] [id number] 08:08:00 08:08:00
--- NOTE | 2019-08-23 23:39 | ER ---
Nurse's Notes [facility] Name: Puja Le Age: 39 yrs Sex: Female : 1980 Arrival Date: 08/23/2019 Time: 21:21 Bed 26 [facility] MD: Diagnosis: Fever, unspecified;Pneumonia- early RLL Presentation: 08/23 21:32 Presenting complaint: Patient states: Reports she started having flu like symptoms ea today, headache, body aches, fever of 101.4, reports taking ibuprofen at 1900. Transition of care: patient was not received from another setting of care. Onset of symptoms was August 23, 2019. Risk Assessment: Do you want to hurt yourself or someone else? Patient reports no desire to harm self or others. Initial Sepsis Screen: Does the patient meet any 2 criteria? No. Patient's initial sepsis screen is negative. Does the patient have a suspected source of infection? No. Patient's initial sepsis screen is negative. Care prior to arrival: None. 21:32 Method Of Arrival: Ambulatory ea 21:32 Acuity: KATHRYN 4 ea Triage Assessment: 21:45 General: Behavior is calm, cooperative, appropriate for age. General: Appears in no vc apparent distress. uncomfortable, ill. Pain: Complains of pain in HEAD AND BODY ACHE. 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 - Coronavirus screen:: The patient has NOT traveled to [place] in the past 14 days. - Social history:: Smoking status: Patient denies any tobacco usage or history of. - Ebola Screening: : No symptoms or risks identified at this time. Screenin:29 Abuse screen: Denies threats or abuse. Nutritional screening: No deficits noted. ea Tuberculosis screening: No symptoms or risk factors identified. Fall Risk None identified. Assessment: 21:45 General: Appears in no apparent distress. uncomfortable, ill, Behavior is calm, vc cooperative, appropriate for age. Pain: Complains of pain in HEAD AND BODY ACHES. Neuro: Level of Consciousness is awake, alert, obeys commands, Oriented to person, place, time, situation, Appropriate for age. Cardiovascular: Patient's skin is warm and dry. Respiratory: Airway is patent Respiratory effort is even, unlabored, Respiratory pattern is regular, symmetrical, GI: No signs and/or symptoms were reported involving the gastrointestinal system. : No signs and/or symptoms were reported regarding the genitourinary system. EENT: No signs and/or symptoms were reported regarding the EENT system. Derm: Skin temperature is warm. Musculoskeletal: Circulation, motion, and sensation intact. Range of motion: intact in all extremities. 22:45 Reassessment: Patient and/or family updated on plan of care and expected duration. Pain vc level reassessed. Patient states symptoms have not improved. 22:56 General: Appears. vc 23:49 Reassessment: Patient appears in no apparent distress at this time. Patient is alert, aa1 oriented x 3, equal unlabored respirations, skin warm/dry/pink. Discussed d/c \T\ f/u instructions with pt; denies questions or concerns at this time. Ambulatory to lobby with steady gait. Patient states feeling better. Vital Signs: 21:28 BP 167 / 87; Pulse 80; Resp 19; Temp 98.8; Pulse Ox 94% on R/A; Weight 79.38 kg; Height ea 5 ft. (152.40 cm); Pain 6/10; 23:00 BP 166 / 89; Pulse 80; Resp 18; Temp 96.9; Pulse Ox 93% on R/A; vc 21:28 Body Mass Index 34.18 (79.38 kg, 152.40 cm) ea ED Course: 21:21 Patient arrived in ED. ag3 21:29 Arm band placed on right wrist. ea 21:33 Triage completed. ea 21:33 Isauro Corrigan FNP-C is PHCP. la1 21:33 Gennaro Abbott MD is Attending Physician. la1 21:45 Patient has correct armband on for positive identification. Placed in gown. Bed in low vc position. Call light in reach. 21:49 Randi Basilio, BRIAN is Primary Nurse. vc 21:59 Chest Pa And Lat (2 Views) XRAY In Process Unspecified. EDMS 22:57 No provider procedures requiring assistance completed. No provider procedures requiring vc assistance completed. 23:49 Patient did not have IV access during this emergency room visit. aa1 Administered Medications: 23:48 Drug: Tylenol 650 mg Route: PO; aa1 23:48 Follow up: Response: Medication administered at discharge. aa1 Outcome: 23:38 Discharge ordered by . la1 23:49 Discharged to home ambulatory, with family. aa1 23:49 Condition: good 23:49 Discharge instructions given to patient, family, Instructed on discharge instructions, follow up and referral plans. medication usage, Demonstrated understanding of instructions, follow-up care, medications, Prescriptions given X 1. 23:49 Patient left the ED. aa1 Signatures: Dispatcher [employer] EDMS Shannon Garcia RN RN aa1 Isauro Corrigan, TRACK GRINDER OPERATOR-C TRACK GRINDER OPERATOR-Cla1 Amarilys Blankenship RN RN ea Gomez, Alice ag3 Randi Basilio RN RN vc
--- NOTE | 2019-08-23 23:39 | EDPHYS ---
Physician Documentation [facility] Name: Puja Le Age: 39 yrs Sex: Female : 1980 Arrival Date: 08/23/2019 Time: 21:21 Bed 26 Private MD: ED Physician Gennaro Abbott HPI: 08/23 23:05 This 39 yrs old Female presents to ER via Ambulatory with complaints of Flu la1 Symptoms. 23:06 The patient reports fever, that was measured at 101.6 degrees Fahrenheit. Onset: The la1 symptoms/episode began/occurred today. Modifying factors: unaware of sick contact. Associated signs and symptoms: Pertinent positives: cough. Severity of symptoms: At their worst the symptoms were mild. The patient has not experienced similar symptoms in the past. pt reports cough for about the last month, fever that began today, states she has not missed dialysis, denies CP/ABD pain, urinary sx. 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 - Coronavirus screen:: The patient has NOT traveled to [place] in the past 14 days. - Social history:: Smoking status: Patient denies any tobacco usage or history of. - Ebola Screening: : No symptoms or risks identified at this time. ROS: 23:07 Constitutional: + fever Eyes: Negative for injury, pain, redness, and discharge, ENT: + la1 pain in throat Neck: Negative for injury, pain, and swelling, Cardiovascular: Negative for chest pain, palpitations, and edema, Respiratory: + cough Abdomen/GI: Negative for abdominal pain, nausea, vomiting, diarrhea, and constipation, Back: Negative for injury and pain, MS/Extremity: Negative for injury and deformity, Neuro: Negative for headache, weakness, numbness, tingling, and seizure. Exam: 23:07 Constitutional: This is a well developed, well nourished patient who is awake, alert, la1 and in no acute distress. Head/Face: Normocephalic, atraumatic. ENT: Mucous membranes moist. Neck: Trachea midline, no cervical lymphadenopathy. Supple, full range of motion without nuchal rigidity, or vertebral point tenderness. No Meningismus. Chest/axilla: Normal chest wall appearance and motion. Nontender with no deformity. No lesions are appreciated. Cardiovascular: Regular rate and rhythm with a normal S1 and S2. No gallops, murmurs, or rubs. Normal PMI, no JVD. No pulse deficits. Respiratory: Lungs have equal breath sounds bilaterally, clear to auscultation Abdomen/GI: Soft, non-tender, with normal bowel sounds. Back: No spinal tenderness. No costovertebral tenderness. Full range of motion. Skin: Warm, dry with normal turgor. Normal color with no rashes, no lesions, and no evidence of cellulitis. MS/ Extremity: Pulses equal, no cyanosis. Neurovascular intact. Full, normal range of motion. Vital Signs: 21:28 BP 167 / 87; Pulse 80; Resp 19; Temp 98.8; Pulse Ox 94% on R/A; Weight 79.38 kg; Height ea 5 ft. (152.40 cm); Pain 6/10; 23:00 BP 166 / 89; Pulse 80; Resp 18; Temp 96.9; Pulse Ox 93% on R/A; vc 21:28 Body Mass Index 34.18 (79.38 kg, 152.40 cm) ea MDM: 21:33 Patient medically screened. la1 23:16 Data reviewed: vital signs, nurses notes, radiologic studies, I have discussed the la1 patient's presentation/case with the attending Emergency Department Physician; and as a result, I will discharge patient. Data interpreted: Pulse oximetry: on room air is 93 %. Interpretation: acceptable. Counseling: I had a detailed discussion with the patient and/or guardian regarding: the historical points, exam findings, and any diagnostic results supporting the discharge/admit diagnosis, lab results, radiology results, the need for outpatient follow up, a family practitioner, to return to the emergency department if symptoms worsen or persist or if there are any questions or concerns that arise at home. Special discussion: Based on the patient's history, exam, and Dx evaluation, there is no indication for emergent intervention or inpatient Tx. It is understood by the patient/guardian that if the Sx's persist or worsen they need to return immediately for re-evaluation. 08/23 21:29 Order name: Flu; Complete Time: 23:30 ea 08/23 21:50 Order name: Strep la1 08/23 21:50 Order name: Chest Pa And Lat (2 Views) XRAY la1 Administered Medications: 23:48 Drug: Tylenol 650 mg Route: PO; aa1 23:48 Follow up: Response: Medication administered at discharge. aa1 Disposition: 08/24 01:08 Co-signature as Attending Physician, Gennaro Abbott MD. rn Disposition: 08/23/19 23:38 Discharged to Home. Impression: Fever, unspecified, Pneumonia- early RLL. - Condition is Stable. - Discharge Instructions: Influenza, Adult, Community-Acquired Pneumonia, Adult, Community-Acquired Pneumonia, Adult, [id number]. - Prescriptions for Doxycycline Hyclate 100 mg Oral Tablet - take 1 tablet by ORAL route every 12 hours for 7 days; 14 tablet. - Medication Reconciliation Form, Thank You Letter, Antibiotic Education form. - Follow up: Private Physician; When: 2 - 3 days; Reason: Recheck today's complaints, Re-evaluation by your physician. Follow up: Emergency Department; When: As needed; Reason: Worsening of condition. - Problem is new. - Symptoms have improved. Signatures: Dispatcher [employer] EDMS Shannon Garcia RN BRIAN aa1 Gennaro Abbott MD MD rn Attema, Lee, DIRECTOR OF FINANCE-C DIRECTOR OF FINANCE-[facility] Amarilys Blankenship RN RN ea Corrections: (The following items were deleted from the chart) 08/23 23:49 23:38 08/23/2019 23:38 Discharged to Home. Impression: Fever, unspecified; Pneumonia- aa1 early RLL. Condition is Stable. Discharge Instructions: Community-Acquired Pneumonia, Adult, Community-Acquired Pneumonia, Adult, [id number]. Prescriptions for Doxycycline Hyclate 100 mg Oral Tablet - take 1 tablet by ORAL route every 12 hours for 7 days; 14 tablet. and Forms are Medication Reconciliation Form, Thank You Letter, Antibiotic Education, Prescription Opioid Use. Follow up: Private Physician; When: 2 - 3 days; Reason: Recheck today's complaints, Re-evaluation by your physician. Follow up: Emergency Department; When: As needed; Reason: Worsening of condition. Problem is new. Symptoms have improved. la1
[2019-08-23] MEDS ORDERED: ACETAMINOPHEN 325 MG TABLET ONE (23:49)
[2019-08-24 01:12] VITALS: BP 166/89; TEMP 96.9; O2SAT 93
--- NOTE | 2019-08-24 07:52 | RAD REPORT ---
EXAM DESCRIPTION: Miguel A Pa And Lat (2 Views)08/23/2019 10:01 pm CLINICAL HISTORY: Cough COMPARISON: 2019 FINDINGS: Mild consolidation of the right lower lobe. Mild interstitial pulmonary opacities bilaterally. The heart is mildly enlarged Mediastinum is mildly prominent IMPRESSION: Mild consolidation right lower lobe consistent with pneumonia Mild bilateral interstitial lung opacities may represent interstitial pulmonary edema Mild prominence of mediastinum may represent lymphadenopathy or vessels
== END 2019-08-23 23:49 | disposition home or self-care (01) ==
LOC: ER 21:20
DX: J18.9 Pneumonia, unspecified organism (principal); I12.0 Hypertensive chronic kidney disease with stage 5 chronic kidney disease or end stage renal disease; N18.6 End stage renal disease; Z99.2 Dependence on renal dialysis; Z88.8 Allergy status to other drugs, medicaments and biological substances
CPT/HCPCS: 71046; 87070; 87081; 87804; 99283

== ENCOUNTER 2019-08-27 03:42 | Inpatient (IN) | payer OTHER ==
--- OUTSIDE RECORDS SUMMARY | 2019-08-27 03:44 | XMS REPORT ---
:1980 [facility] Address [address] [place] [address] Care Team Providers Name Role Phone Unavailable Unavailable Unavailable Problems This patient has no known problems. Allergies, Adverse Reactions, Alerts This patient has no known allergies or adverse reactions. Medications This patient has no known medications. Encounters Start End Encounter Admission Attending Care Care Encounter Date/Time Date/Time Type Type Clinicians Facility Department ID 2018-10-18 Inpatient [facility] [id number] 08:59:05 2018-10-19 2018-10-19 Outpatient [facility] [id number] 08:08:00 08:08:00
[2019-08-27] MEDS ORDERED: IPRATROPIUM BROM 0.5MG/2.5ML ONE (04:19)
[2019-08-27] MEDS ORDERED: Levofloxacin500mg IV 500 MG/100 ML BAG IV ONE (04:20)
[2019-08-27] MEDS ORDERED: ALBUTEROL 2.5 MG/3 ML NEB SOL ONE (04:20)
[2019-08-27] MEDS ORDERED: NA CHLORIDE 0.9% 250 ML ONE (04:20)
[2019-08-27] MEDS ORDERED: HYDRALAZINE HCL 20 MG/ML VIAL ONE (04:20)
[2019-08-27] MEDS ORDERED: AZITHROMYCIN 500 MG INJ IVPB ONE (04:20)
[2019-08-27 04:31] LABS: Absolute Lymphocytes (CBC) 0.5 K/uL (0.7-4.9); Basophils % 0.6 % (0-1.3); Hematocrit 37.5 % (36.0-45.0); Lymphocytes % 7.6 % (15.3-44.8); MPV 8.6 fL (7.6-11.3); Protime INR 1.2; RBC Red Blood Cell Count 4.13 M/uL (3.86-4.86)
[2019-08-27 05:34] LABS: Albumin 2.7 g/dL (3.4-5.0); Bilirubin Direct 0.5 mg/dL (0-0.2); Bilirubin Total 0.9 mg/dL (0.2-1.0); Potassium 4.9 mmol/L (3.5-5.1); Protein, Total 7.6 g/dL (6.4-8.2); Troponin (Emerg Dept Use Only) 0.02 ng/mL (0.0-0.045)
--- NOTE | 2019-08-27 05:56 | ER ---
Nurse's Notes [facility] Name: Puja Le Age: 39 yrs Sex: Female : 1980 Arrival Date: 08/27/2019 Time: 03:45 Bed 7 Private MD: Diagnosis: Pneumonia due to other specified infectious organisms;Hypoxemia;Acute pulmonary edema;Chronic kidney disease, stage 5 Presentation: 08/26 03:55 Chief complaint: Patient states: "I was here Wednesday and diagnosed with pneumonia. I jd3 was sent home with an antibiotic, but it doesn't seem like it is helping. I am having chest pains and a worsening cough.". Coronavirus screen: The patient has NOT traveled to [place] in the past 14 days. The patient has NOT had contact with known and/or suspected case of Coronavirus. Proceed with normal triage procedures. Ebola Screen: Patient negative for fever greater than or equal to 101.5 degrees Fahrenheit, and additional compatible Ebola Virus Disease symptoms. Initial Sepsis Screen: Does the patient meet any 2 criteria? No. Patient's initial sepsis screen is negative. Does the patient have a suspected source of infection? Yes: Productive cough/pneumonia. Risk Assessment: Do you want to hurt yourself or someone else? Patient reports no desire to harm self or others. Onset of symptoms was August 25, 2019. 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 - Social history:: Smoking status: Patient denies any tobacco usage or history of. Screenin:59 Abuse screen: Denies threats or abuse. Nutritional screening: No deficits noted. jd3 Tuberculosis screening: No symptoms or risk factors identified. Fall Risk Ambulatory Aid- None/Bed Rest/Nurse Assist (0 pts). Gait- Normal/Bed Rest/Wheelchair (0 pts) Mental Status- Oriented to own ability (0 pts). Total Morgan Fall Scale indicates No Risk (0-24 pts). Assessment: 04:14 General: Appears in no apparent distress. uncomfortable, well groomed, Behavior is jd3 calm, cooperative. Pain: Complains of pain in left scapular area, right scapular area and thoracic area Pain radiates to chest Pain currently is 2 out of 10 on a pain scale. Quality of pain is described as aching, crampy, pressure, radiating, squeezing. Neuro: Level of Consciousness is awake, alert, obeys commands, Oriented to person, place, time, situation, Speech is normal. Cardiovascular: Heart tones S1 S2 present Capillary refill < 3 seconds Patient's skin is warm and dry. Rhythm is sinus rhythm. Respiratory: Reports cough that is productive, persistent Airway is patent Respiratory effort is even, unlabored, shallow, Respiratory pattern is regular, symmetrical, Breath sounds with wheezes bilaterally. GI: Abdomen is round non-distended, Bowel sounds present X 4 quads. Abd is soft and non tender X 4 quads. : No signs and/or symptoms were reported regarding the genitourinary system. EENT: No signs and/or symptoms were reported regarding the EENT system. Derm: Skin is intact, is healthy with good turgor, Skin is dry, Skin is normal, Skin temperature is warm. Musculoskeletal: Circulation, motion, and sensation intact. Range of motion: intact in all extremities, Swelling present in lower right leg and left leg bilaterally. 05:28 Reassessment: Patient appears in no apparent distress at this time. Patient and/or mg2 family updated on plan of care and expected duration. Pain level reassessed. Patient is alert, oriented x 3, equal unlabored respirations, skin warm/dry/pink. 07:28 Reassessment: Pt notified of wait time for room assignment, pt verbalized aa5 understanding. . 07:30 General: Appears comfortable, Behavior is calm, cooperative. Pain: Denies pain. Neuro: aa5 Level of Consciousness is awake, alert, obeys commands, Oriented to person, place, time, situation. Cardiovascular: Heart tones S1 S2 present Rhythm is sinus rhythm Dialysis shunt: in the left arm, with palpable thrill, with auscultated bruit, with no erythema, with no edema, no bleeding noted. Respiratory: Reports cough has improved, denies SOB at this time Airway is patent Respiratory effort is even, unlabored, Respiratory pattern is regular, symmetrical, Breath sounds are diminished bilaterally. GI: Abdomen is round non-distended, Bowel sounds present X 4 quads. Abd is soft and non tender X 4 quads. : No signs and/or symptoms were reported regarding the genitourinary system. EENT: No signs and/or symptoms were reported regarding the EENT system. Derm: Skin is pink, warm \\T\\ dry. Musculoskeletal: Range of motion: intact in all extremities. 08:05 Reassessment: Patient is alert, oriented x 3, equal unlabored respirations, skin aa5 warm/dry/pink. Vital Signs: 03:58 BP 195 / 100; Pulse 86; Resp 20 S; Temp 98.7(O); Pulse Ox 90% on R/A; Weight 79.38 kg jd3 (R); Height 5 ft. 0 in. (152.40 cm) (R); Pain 3/10; 03:58 Pulse Ox 97% on 2 lpm NC; jd3 04:26 BP 166 / 96; Pulse 82; Resp 20; Pulse Ox 98% on Nebulizer Mask; Pain 2/10; jd3 05:28 BP 149 / 76; Pulse 89; Resp 18; Temp 99.6; Pulse Ox 98% on R/A; mg2 07:32 BP 169 / 100; Pulse 83; Resp 20 S; Temp 99.0(O); Pulse Ox 95% on 2 lpm NC; aa5 03:58 Body Mass Index 34.18 (79.38 kg, 152.40 cm) jd3 ED Course: 03:45 Patient arrived in ED. ag3 03:49 Brendan Zhang MD is Attending Physician. tw4 03:55 Ming Toure, BRIAN is Primary Nurse. jd3 03:57 Triage completed. jd3 03:59 Arm band placed on. EKG completed in triage. Results shown to MD. jd3 03:59 Patient has correct armband on for positive identification. Placed in gown. Bed in low jd3 position. Call light in reach. Side rails up X 1. Adult w/ patient. sign language instructor on. Pulse ox on. NIBP on. 04:10 First set of blood cultures drawn. Inserted saline lock: 20 gauge in right antecubital mg2 area, using aseptic technique. Blood collected. 04:25 Second set of blood cultures drawn by me. mg2 04:35 XRAY Chest (1 view) In Process Unspecified. EDMS 04:36 No provider procedures requiring assistance completed. mg2 05:54 Ruben Blue MD is Hospitalizing Provider. tw4 06:26 Patient admitted, IV remains in place. mg2 07:21 Flu and/or RSV swab sent to lab. mg2 Administered Medications: 04:35 Drug: hydrALAZINE 10 mg Route: IV; Rate: bolus; Site: right antecubital; mg2 05:27 Follow up: Response: No adverse reaction; Blood pressure is lowered; IV Status: mg2 Completed infusion 04:35 Drug: DuoNeb (3:1) (2.5 mg - 0.5 mg) 3 ml Route: Nebulizer; mg2 05:27 Follow up: Response: No adverse reaction mg2 04:36 Drug: LevaQUIN 500 mg Volume: 100 ml; Route: IVPB; Infused Over: 60 mins; Site: right mg2 antecubital; 05:27 Follow up: Response: No adverse reaction; IV Status: Completed infusion mg2 05:27 Drug: AZITHromycin 500 mg Route: IVPB; Infused Over: 1 hrs; Site: right antecubital; mg2 07:00 Follow up: Response: No adverse reaction; IV Status: Completed infusion aa5 Outcome: 05:55 Decision to Hospitalize by Provider. tw4 08:05 Admitted to Med/surg accompanied by tech, via wheelchair, with oxygen, with chart, aa5 Report called to BRIAN Oconnor 08:05 Condition: stable 08:05 Instructed on the need for admit, Demonstrated understanding of instructions. 08:10 Patient left the ED. iw Signatures: Dispatcher [employer] EDMS Cristal Encinas RN RN iw Tram Goldstein RN RN aa5 Ming Toure RN RN Brendan Morrison MD MD tw4 Ricardo Vyas RN RN mg2 Luz Queen ag3 Corrections: (The following items were deleted from the chart) 07:37 07:30 Reassessment: Pt notified of wait time for room assignment, pt verbalized aa5 understanding. . aa5 08:06 06:26 Admitted to Med/surg accompanied by tech, via wheelchair, room 214, with oxygen, aa5 with chart, Report called to BRIAN Jha 06:26 Condition: stable mg2 aa5 06: Instructed on the need for admit, Demonstrated understanding of instructions, lawrence aa5
--- NOTE | 2019-08-27 05:56 | EDPHYS ---
Physician Documentation [facility] Name: Puja Le Age: 39 yrs Sex: Female : 1980 Arrival Date: 08/27/2019 Time: 03:45 Bed 7 Private MD: ED Physician Brendan Zhang HPI: 08/26 04:03 This 39 yrs old Female presents to ER via Wheelchair with complaints of tw4 Breathing Difficulty, Cough, Back Pain. 04:03 The patient has shortness of breath at rest. Onset: The symptoms/episode began/occurred tw4 today. Duration: The symptoms are continuous, and are steadily getting worse. The patient's shortness of breath has no apparent modifying factors. Associated signs and symptoms: The patient has no apparent associated signs or symptoms. The patient has not experienced similar symptoms in the past. The patient has been recently seen at the [facility] Emergency Department, this week, for similar complaints X-rays were performed, was given a prescription for antibiotics. 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 - Social history:: Smoking status: Patient denies any tobacco usage or history of. ROS: 04:03 Respiratory: Positive for cough, dyspnea on exertion, shortness of breath, wheezing, tw4 Negative for hemoptysis, orthopnea, pleurisy. 06:48 Eyes: Negative for injury, pain, redness, and discharge, Cardiovascular: Negative for tw4 chest pain, palpitations, and edema, Abdomen/GI: Negative for abdominal pain, nausea, vomiting, diarrhea, and constipation, Back: Negative for injury and pain, MS/Extremity: Negative for injury and deformity, Skin: Negative for injury, rash, and discoloration. Exam: 04:03 Constitutional: This is a well developed, well nourished patient who is awake, alert, tw4 and in no acute distress. Head/Face: Normocephalic, atraumatic. Chest/axilla: Normal chest wall appearance and motion. Nontender with no deformity. No lesions are appreciated. Cardiovascular: Regular rate and rhythm with a normal S1 and S2. No gallops, murmurs, or rubs. Normal PMI, no JVD. No pulse deficits. Respiratory: Lungs have equal breath sounds bilaterally, clear to auscultation and percussion. No rales, rhonchi or wheezes noted. No increased work of breathing, no retractions or nasal flaring. Abdomen/GI: Soft, non-tender, with normal bowel sounds. No distension or tympany. No guarding or rebound. No evidence of tenderness throughout. MS/ Extremity: Pulses equal, no cyanosis. Neurovascular intact. Full, normal range of motion. Neuro: Awake and alert, GCS 15, oriented to person, place, time, and situation. Cranial nerves II-XII grossly intact. Motor strength 5/5 in all extremities. Sensory grossly intact. Cerebellar exam normal. Normal gait. Vital Signs: 03:58 BP 195 / 100; Pulse 86; Resp 20 S; Temp 98.7(O); Pulse Ox 90% on R/A; Weight 79.38 kg jd3 (R); Height 5 ft. 0 in. (152.40 cm) (R); Pain 3/10; 03:58 Pulse Ox 97% on 2 lpm NC; jd3 04:26 BP 166 / 96; Pulse 82; Resp 20; Pulse Ox 98% on Nebulizer Mask; Pain 2/10; jd3 05:28 BP 149 / 76; Pulse 89; Resp 18; Temp 99.6; Pulse Ox 98% on R/A; mg2 07:32 BP 169 / 100; Pulse 83; Resp 20 S; Temp 99.0(O); Pulse Ox 95% on 2 lpm NC; aa5 03:58 Body Mass Index 34.18 (79.38 kg, 152.40 cm) jd3 MDM: 03:49 Patient medically screened. tw4 04:05 Antibiotic administration: Levaquin given, Zithromax is given. Data reviewed: vital tw4 signs, nurses notes. Data interpreted: Pulse oximetry: on room air is 91 %. Interpretation: hypoxia. Plan: O2 by NC applied. Counseling: I had a detailed discussion with the patient and/or guardian regarding: the historical points, exam findings, and any diagnostic results supporting the discharge/admit diagnosis, lab results. 05:52 Differential diagnosis: Anemia Bronchitis pneumonia, pulmonary edema, Pulmonary tw4 Embolism reactive airway disease, Sepsis. Test interpretation: by ED physician or midlevel provider: ECG, plain radiologic studies. Medication response: albuterol nebulizer treatment(s) partially relieved the patient's wheezing. Response to treatment: and as a result, I will admit patient, administer antibiotics Levaquin, Zithromax. Physician consultation: Ruben Blue MD was contacted at 05:53, regarding admission, to the telemetry unit. patient's condition, and will see patient in unit. 08/26 03:49 Order name: Basic Metabolic Panel; Complete Time: 05:50 08/26 05:50 Interpretation: Normal except: NA 135; GFR 10; CRE 5.00; BUN 31; CA 8.4. 08/26 03:49 Order name: CBC with Diff; Complete Time: 05:50 08/26 05:50 Interpretation: Normal except: LYM% 7.6; WILLIAM% 79.9; PLT 134. 08/26 03:49 Order name: LFT's; Complete Time: 05:50 08/26 05:52 Interpretation: Normal except: AST 41; ALK 340; BILID 0.5; ALB 2.7; GLOB 4.9; A/G 0.6. 08/26 03:49 Order name: Magnesium; Complete Time: 05:50 08/26 05:52 Interpretation: Normal except: MG 2.0. 08/26 03:49 Order name: NT PRO-BNP; Complete Time: 05:50 08/26 05:52 Interpretation: Abnormal: NT PRO-BNP 56247. 08/26 03:49 Order name: PT-INR; Complete Time: 05:50 08/26 05:52 Interpretation: Abnormal: PT 14.1. 08/26 03:49 Order name: Troponin (emerg Dept Use Only); Complete Time: 05:50 08/26 05:52 Interpretation: Within normal limits: TROPED 0.02. 08/26 03:49 Order name: XRAY Chest (1 view) 08/26 04:02 Order name: Blood Culture Adult (2) 08/26 04:02 Order name: Lactate; Complete Time: 05:50 08/26 06:57 Order name: Flu 08/26 03:49 Order name: EKG; Complete Time: 03:50 08/26 03:49 Order name: Cardiac monitoring; Complete Time: 03:54 08/26 03:49 Order name: EKG - Nurse/Tech; Complete Time: 03:54 08/26 03:49 Order name: IV Saline Lock; Complete Time: 04:36 08/26 03:49 Order name: Labs collected and sent; Complete Time: 04:36 08/26 03:49 Order name: O2 Per Protocol; Complete Time: 03:54 08/26 03:49 Order name: O2 Sat Monitoring; Complete Time: 03:54 tw4 EC:03 Rate is 87 beats/min. Rhythm is regular. QRS Usk is Normal. AR interval is normal. QRS tw4 interval is normal. QT interval is prolonged at 80 msec. No Q waves. T waves are Normal. No ST changes noted. Clinical impression: NSR w/ Non-specific ST/T Changes. Interpreted by me. Reviewed by me. Administered Medications: 04:35 Drug: hydrALAZINE 10 mg Route: IV; Rate: bolus; Site: right antecubital; mg2 05:27 Follow up: Response: No adverse reaction; Blood pressure is lowered; IV Status: mg2 Completed infusion 04:35 Drug: DuoNeb (3:1) (2.5 mg - 0.5 mg) 3 ml Route: Nebulizer; mg2 05:27 Follow up: Response: No adverse reaction mg2 04:36 Drug: LevaQUIN 500 mg Volume: 100 ml; Route: IVPB; Infused Over: 60 mins; Site: right mg2 antecubital; 05:27 Follow up: Response: No adverse reaction; IV Status: Completed infusion mg2 05:27 Drug: AZITHromycin 500 mg Route: IVPB; Infused Over: 1 hrs; Site: right antecubital; mg2 07:00 Follow up: Response: No adverse reaction; IV Status: Completed infusion aa5 Disposition: 08/27/19 05:55 Hospitalization ordered by Ruben Blue for Observation. Preliminary diagnosis are Pneumonia due to other specified infectious organisms, Hypoxemia, Acute pulmonary edema, Chronic kidney disease, stage 5. - Bed requested for Telemetry/MedSurg (observation). - Status is Observation. iw - Condition is Fair. - Problem is an ongoing problem. - Symptoms have worsened. Signatures: Dispatcher [employer] EDMS Holly Corral RN Cristal Mazariegos RN RN iw Davies, Jonathon, RN RN jd3 Wadley, Terrence, MD MD tw4 Ricardo Vyas RN RN [facility] Tram Goldstein RN aa5 Corrections: (The following items were deleted from the chart) 04:04 04:03 Constitutional: Negative for fever, chills, and weight loss, Eyes: Negative for tw4 injury, pain, redness, and discharge, Cardiovascular: Negative for chest pain, palpitations, and edema, Respiratory: Negative for shortness of breath, cough, wheezing, and pleuritic chest pain, Abdomen/GI: Negative for abdominal pain, nausea, vomiting, diarrhea, and constipation, Back: Negative for injury and pain, Skin: Negative for injury, rash, and discoloration, Neuro: Negative for headache, weakness, numbness, tingling, and seizure, tw4 06:06 05:55 Hospitalization Ordered by Ruben Blue MD for Inpatient Admission. Preliminary mw diagnosis is Pneumonia due to other specified infectious organisms; Hypoxemia. Bed requested for Telemetry/MedSurg (Inpatient). Status is Inpatient Admission. Condition is Fair. Problem is an ongoing problem. Symptoms have worsened. tw4 06:59 06:06 08/27/2019 05:55 Hospitalization Ordered by Ruben Blue MD for Inpatient tw4 Admission. Preliminary diagnosis is Pneumonia due to other specified infectious organisms; Hypoxemia. Bed requested for Telemetry/MedSurg (Inpatient). Status is Inpatient Admission. Condition is Fair. Problem is an ongoing problem. Symptoms have worsened. 07:30 06:59 08/27/2019 05:55 Hospitalization Ordered by Ruben Blue MD for Observation. iw Preliminary diagnosis is Pneumonia due to other specified infectious organisms; Hypoxemia; Acute pulmonary edema; Chronic kidney disease, stage 5. Bed requested for Telemetry/MedSurg (observation). Status is Observation. Condition is Fair. Problem is an ongoing problem. Symptoms have worsened. tw4 08:10 07:30 08/27/2019 05:55 Hospitalization Ordered by Ruben Blue MD for Observation. iw Preliminary diagnosis is Pneumonia due to other specified infectious organisms; Hypoxemia; Acute pulmonary edema; Chronic kidney disease, stage 5. Bed requested for Telemetry/MedSurg (observation). Status is Observation. Condition is Fair. Problem is an ongoing problem. Symptoms have worsened. iw
[2019-08-27] MEDS ORDERED: ONDANSETRON 4 MG/2 ML VIAL IV PRN (09:00)
[2019-08-27] MEDS: HEPARIN 5000 UNIT/ML 1 ML VIAL SQ SCH ×2 (10:05→22:05)
[2019-08-27] MEDS: FUROSEMIDE 40 MG TABLET PO SCH ×2 (10:05→16:43)
[2019-08-27] MEDS: BENZONATATE 100 MG CAP PO PRN ×2 (10:05→16:45)
[2019-08-27] MEDS: FAMOTIDINE 20 MG TAB PO SCH (10:06)
[2019-08-27] MEDS: GUAIFENESIN 600 MG SA TAB PO SCH ×2 (10:06→22:05)
[2019-08-27] MEDS ORDERED: NIFEDIPINE XL 30 MG TABLET PO SCH (11:00)
--- NOTE | 2019-08-27 11:07 | P.HP ---
Certification for Inpatient Patient admitted to: Observation With expected LOS: <2 Midnights Patient will require the following post-hospital care: None Practitioner: I am a practitioner with admitting privileges, knowledge of patient current condition, hospital course, and medical plan of care. Services: Services provided to patient in accordance with Admission requirements found in Title 42 Section 412.3 of the Code of Federal Regulations Patient History Date of Service: 08/27/19 Primary Care Provider: Dr. Kelly Reason for admission: SOB, Cough History of Present Illness: 39-year-old female with history of end-stage renal disease on hemodialysis, hypertension. Patient reported increasing cough, congestion. She reports the cough has been chronic but getting worse. Today she had fever about 100.6. She felt tired and weak. She has had poor oral intake. She mention that she came to the ER recently. She was treated for viral infection and sent home. She came to the ER for further evaluation. In the ER patient was evaluated. Pro calcitonin 1.08. Flu test negative. White count 6.2, hemoglobin 12. Platelet count 134. Sodium 135, potassium 4.9, BUN of 31, creatinine 5, GFR of 10. BNP greater than 59,000. Lactic acid normal. Chest x-ray shows possible fluid overload. Patient admitted for further evaluation and treatment. When I saw the patient ER, she did not appear septic. Patient reports chronic cough. She is not on a fluid restriction at home. She does take Lasix. Allergies piperacillin [From Zosyn] Allergy (Verified 08/27/19 09:45) Unknown tazobactam [From Zosyn] Allergy (Verified 08/27/19 09:45) Unknown Home medications list reviewed: Yes Home Medications: Furosemide [Lasix] 60 mg PO BID 12/05/18 Nifedipine [Procardia Xl] 30 mg PO BID 12/05/18 - Past Medical/Surgical History Diabetic: Yes -: ESRD on Hemodialysis -: HTN -: CAD -: C Section x2 -: Former peritoneal dialysis -: cholecystectomy Psychosocial/ Personal History: The patient is . - Family History Family History: Reviewed- Non-Contributory - Social History Smoking Status: Never smoker Alcohol use: No CD- Drugs: No Caffeine use: Yes Place of Residence: Home Review of Systems General: Fever, Weakness, As per HPI Eyes: Unremarkable ENT: Nose Congestion, As per HPI Respiratory: Shortness of Breath, As per HPI Cardiovascular: Unremarkable Gastrointestinal: As per HPI Genitourinary: Unremarkable Musculoskeletal: Pedal edema, As per HPI Integumentary: Unremarkable Neurological: Unremarkable Lymphatics: Unremarkable Physical Examination - Vital Signs Temperature: 99.0 F Blood Pressure: 169/100 Pulse: 83 Respirations: 20 - Physical Exam General: Alert, In no apparent distress, Oriented x3, Cooperative HEENT: Atraumatic, Normocephalic, Mucous membr. moist/pink Neck: Supple Respiratory: Crackles/rales (Mild crackles to the bases) Cardiovascular: Normal pulses, Regular rate/rhythm Gastrointestinal: Normal bowel sounds, Soft and benign, Non-distended, No tenderness, No masses, No rebound, No guarding Musculoskeletal: No erythema, No tenderness, No warmth Integumentary: No erythema, No warmth, No cyanosis, Tenderness/swelling (Mild edema to the lower extremity) Neurological: Normal speech, Normal strength at 5/5 x4 extr, Normal tone, Normal affect - Studies Laboratory Data (last 24 hrs) 08/27/19 04:10: PT 14.1 H, INR 1.20 08/27/19 04:10: WBC 6.2, Hgb 12.3, Hct 37.5, Plt Count 134 L 08/27/19 04:10: Sodium 135 L, Potassium 4.9, BUN 31 H, Creatinine 5.00 H, Glucose 93, Magnesium 2.0 D, Total Bilirubin 0.9, AST 41 H, ALT 22, Alkaline Phosphatase 340 H Assessment and Plan - Plan Impression: Shortness of breath with cough suspect viral bronchitis with possible volume overload Pulmonary edema with end-stage renal disease on hemodialysis Hypertension Plan: Shortness of breath with cough suspect viral bronchitis with possible volume overload: Patient be admitted for further evaluation and treatment. Case discussed with nephrology. Patient will likely require hemodialysis today. Pro calcitonin elevated. White count within normal range. Suspect viral bronchitis. Will provide medication for cough and congestion. Will start Levaquin to cover for possible pneumonia. Recheck chest x-ray tomorrow. Will place on on fluid restriction. Continue her Lasix and blood pressure medication. Await further recommendations from nephrology. Anticipate discharge in the next 24 hr with clinical improvement.. Pulmonary edema with end-stage renal disease on hemodialysis: Case discussed with nephrology. Nephrology plans for dialysis today. Will continue to reassess. Hypertension: Restart home medication. Will check echocardiogram to evaluate for CHF. Discharge Plan: Home Plan to discharge in: 24 Hours - Advance Directives Does patient have a Living Will: No Does patient have a Durable POA for Healthcare: No - Code Status/Comfort Care Code Status Assessed: Yes (Patient is full code) Time Spent Managing Pts Care (In Minutes): 55
--- NOTE | 2019-08-27 12:02 | RAD REPORT ---
EXAM DESCRIPTION: RAD - Chest Single View - 08/27/2019 4:35 am CLINICAL HISTORY: COUGH Chest pain. COMPARISON: Chest Pa And Lat (2 Views) dated 08/23/2019; Chest Pa And Lat (2 Views) dated 12/06/2018; Chest Pa And Lat (2 Views) dated 12/05/2018; Chest Pa And Lat (2 Views) dated 09/17/2017 FINDINGS: Portable technique limits examination quality. Right parahilar lung opacity appears mildly progressive since the comparative study, most likely repr esenting pneumonia. Follow-up until clear would be advised, however. The heart is mildly enlarged in size. No displaced fractures. IMPRESSION: Mild worsening in right parahilar lung infiltrate since comparative study.
[2019-08-27] MEDS ORDERED: HYDRALAZINE HCL 20 MG/ML VIAL IV PRN (12:15)
[2019-08-27 12:36] VITALS: BMI 34.2
[2019-08-27] MEDS: ACETAMINOPHEN 500 MG TAB PO PRN ×2 (16:43→22:04)
[2019-08-27] MEDS: Levofloxacin 250mg IV 250 MG/50 ML BAG IV SCH (16:44)
[2019-08-27] MEDS: ALBUTEROL 2.5 MG/3 ML NEB SOL NEB PRN (17:05)
[2019-08-27] MEDS: IPRATROPIUM BROM 0.5MG/2.5ML NEB PRN (17:05)
[2019-08-27] MEDS: NIFEDIPINE XL 30 MG TABLET PO SCH (22:04)
[2019-08-28 05:51] LABS: Absolute Lymphocytes (CBC) 0.5 K/uL (0.7-4.9); Basophils % 0.7 % (0-1.3); Hematocrit 35.1 % (36.0-45.0); MPV 8.6 fL (7.6-11.3); RBC Red Blood Cell Count 3.88 M/uL (3.86-4.86)
[2019-08-28 06:06] LABS: Magnesium 2.1 mg/dL (1.8-2.4); Phosphorus 4.9 mg/dL (2.5-4.9); Potassium 4.5 mmol/L (3.5-5.1)
[2019-08-28 06:47] LABS: Blood Morphology Comment NOT SEEN (NOT SEEN); Platelet Estimate DECR
--- NOTE | 2019-08-28 06:59 | RAD REPORT ---
EXAM DESCRIPTION: RAD - Chest Pa And Lat (2 Views) - 08/28/2019 6:14 am CLINICAL HISTORY: Follow up CHF vs Pneumonia Chest pain. COMPARISON: Chest Single View dated 08/27/2019; Chest Pa And Lat (2 Views) dated 08/23/2019; Chest Pa A nd Lat (2 Views) dated 12/06/2018; Chest Pa And Lat (2 Views) dated 12/05/2018 FINDINGS: Slight worsening in bilateral pulmonary opacities is noted since comparative study. Findin gs may be related to pulmonary edema or interstitial pneumonia. The heart is mildly enlarged in size. No displaced fractures. IMPRESSION: Mild worsening in lung aeration since comparative study.
[2019-08-28] MEDS: IPRATROPIUM BROM 0.5MG/2.5ML NEB PRN (08:07)
[2019-08-28] MEDS: ALBUTEROL 2.5 MG/3 ML NEB SOL NEB PRN (08:08)
[2019-08-28] MEDS: HEPARIN 5000 UNIT/ML 1 ML VIAL SQ SCH ×2 (09:00→21:21)
[2019-08-28] MEDS: NIFEDIPINE XL 30 MG TABLET PO SCH ×2 (09:05→21:22)
[2019-08-28] MEDS: FUROSEMIDE 40 MG TABLET PO SCH ×2 (09:05→17:29)
[2019-08-28] MEDS: BENZONATATE 100 MG CAP PO PRN (09:05)
[2019-08-28] MEDS: GUAIFENESIN 600 MG SA TAB PO SCH ×2 (09:06→21:21)
[2019-08-28] MEDS: ACETAMINOPHEN 500 MG TAB PO PRN ×2 (09:06→21:23)
[2019-08-28] MEDS: FAMOTIDINE 20 MG TAB PO SCH (09:06)
--- NOTE | 2019-08-28 11:50 | ECHO ---
HEIGHT: 5 ft 0 in WEIGHT: 175 lb 0 oz DATE OF STUDY: 08/28/[address]: Janusz Solano DO 2-DIMENSIONAL: YES M.MODE: YES DOPPLER: YES COLOR FLOW: YES TDS: NO PORTABLE: NO DEFINITY: NO BUBBLE STUDY: NO DIAGNOSIS: EVALUATE FOR CONGESTIVE HEART FAILURE CARDIAC HISTORY: CATHERIZATION: NO SURGERY: NO PROSTHETIC VALVE: NO PACEMAKER: NO MEASUREMENTS (cm) DIASTOLIC (NORMALS) SYSTOLIC (NORMALS) IVSd 1.3 (0.6-1.2) LA Diam 4.2 (1.9-4.0) LVEF 64% LVIDd 4.5 (3.5-5.7) LVIDs 2.9 (2.0-3.5) %FS 35% LVPWd 1.4 (0.6-1.2) Ao Diam 2.7 (2.0-3.7) 2 DIMENSIONAL ASSESSMENT: RIGHT ATRIUM: MASS, POSSIBLE CATHETER LEFT ATRIUM: NORMAL RIGHT VENTRICLE: NORMAL LEFT VENTRICLE: NORMAL TRICUSPID VALVE: NORMAL MITRAL VALVE: NORMAL PULMONIC VALVE: NORMAL AORTIC VALVE: NORMAL PERICARDIAL EFFUSION: NONE AORTIC ROOT: NORMAL LEFT VENTRICULAR WALL MOTION: NORMAL DOPPLER/COLOR FLOW: MILD TRICUSPID REGURGITATION. MILD PULMONARY HYPERTENSION. ESTIMATED RIGHT VENTRICULAR SYSTOLIC PRESSURE 45 mmHg. COMMENTS: NORMAL LEFT VENTRICULAR EJECTION FRACTION. RIGHT ATRIAL MASS, POSSIBLY RELATED TO A CATHETER. MILD TRICUSPID REGURGITATION. MILD PULMONARY HYPERTENSION. TECHNOLOGIST: Twila PALMER
--- NOTE | 2019-08-28 15:37 | EKG ---
Test Date: 2019-08-27 Test Time: 03:56:51 Investment Accounting Clerk: DEAN MEASUREMENT RESULTS: Intervals: Rate: 87 CT: 148 QRSD: 80 QT: 394 QTc: 474 [place]: P: 44 CT: 148 QRS: 50 T: 14 INTERPRETIVE STATEMENTS: Normal sinus rhythm Nonspecific ST and T wave abnormality Prolonged QT Abnormal ECG Compared to ECG 12/05/2018 16:05:09 ST (T wave) deviation now present Prolonged QT interval now present Electronically Signed On 08-28-19 15:36:15 UNIX MANAGER by Jose Ornelas
--- NOTE | 2019-08-28 15:42 | P.PN ---
Date of Service: 08/28/19 Vital Signs Temp Pulse Resp BP Pulse Ox 98 F 84 18 166/86 H 94 08/28/19 10:06 08/28/19 09:05 08/28/19 08:00 08/28/19 09:05 08/28/19 08:00 Medications Acetaminophen (Tylenol -Extra Strength) 500 mg PO Q4HP PRN PRN Reason: TEMP > 101' F Stop: 09/26/19 09:01 Last Admin: 08/28/19 09:06 Dose: 500 mg Albuterol Sulfate (Proventil 0.083% Neb Soln) 2.5 mg NEB [id number] PRN PRN Reason: SHORTNESS OF BREATH Stop: 09/26/19 09:01 Last Admin: 08/28/19 08:08 Dose: 2.5 mg Chlorphenir/Hydrocodone Polistirex (Tussionex Oral Susp) 5 ml PO BID PRN PRN Reason: COUGH Stop: 09/27/19 11:20 Famotidine (Pepcid) 20 mg PO DAILY [facility]; Protocol Stop: 09/26/19 10:01 Last Admin: 08/28/19 09:06 Dose: 20 mg Furosemide (Lasix) 80 mg PO BIDL [facility] Stop: 09/26/19 10:01 Last Admin: 08/28/19 09:05 Dose: 80 mg Guaifenesin (Mucinex 600mg) 600 mg PO BID [facility] Stop: 09/26/19 10:01 Last Admin: 08/28/19 09:06 Dose: 600 mg Heparin Sodium (Porcine) (Heparin 5,000 Units/Ml) 5,000 unit SQ Q12HR [facility] Stop: 09/26/19 10:01 Last Admin: 08/28/19 09:00 Dose: Not Given Heparin Sodium (Porcine) (Heparin 1,000 Units/Ml) 2,000 unit IV EVERY HD PRN PRN Reason: hemodialysis Stop: 08/31/19 11:11 Hydralazine HCl (Apresoline) 10 mg IV Q4HP PRN PRN Reason: FOR SBP>160 OR DBP>100 MMHG Stop: 09/26/19 12:16 Last Admin: 08/27/19 14:13 Dose: 10 mg Levofloxacin/Dextrose (Levaquin 250mg/50 Ml Ivpb) 250 mg in 50 mls @ 50 mls/hr IV Q48H [facility]; Protocol Stop: 09/26/19 12:01 Last Admin: 08/27/19 16:44 Dose: 50 mls Ipratropium [place] (Atrovent Neb) 0.5 mg NEB [id number] PRN PRN Reason: SHORTNESS OF BREATH Stop: 09/26/19 09:01 Last Admin: 08/28/19 08:07 Dose: 0.5 mg Nifedipine (Procardia Xl) 30 mg PO BID [facility] Stop: 09/26/19 21:01 Last Admin: 08/28/19 09:05 Dose: 30 mg Ondansetron HCl (Zofran) 4 mg IV Q6HP PRN PRN Reason: NAUSEA / VOMITING Stop: 09/26/19 09:01 Sodium Chloride (Normal Saline Flush) 10 ml IV BID [facility] Stop: 09/26/19 10:01 Last Admin: 08/28/19 09:06 Dose: 10 ml Lab Results (last 24 hrs) 08/28/19 05:05: Sodium 137, Potassium 4.5, Chloride 98, Carbon Dioxide 30, BUN 27 H, Creatinine 4.44 H, Estimated GFR 11 L, Glucose 85, Calcium 8.2 L, Phosphorus 4.9, Magnesium 2.1 08/28/19 05:05: WBC 5.8, RBC 3.88, Hgb 11.7 L, Hct 35.1 L, MCV 90.6, MCH 30.2, MCHC 33.3, RDW 14.7, Plt Count 98 L* D, MPV 8.6, Neutrophils % 81.4 H, Lymphocytes % 8.0 L, Monocytes % 8.5, Eosinophils % 1.4, Basophils % 0.7, Absolute Neutrophils 4.8, Segmented Neutrophils 82 H, Absolute Lymphocytes 0.5 L , Lymphocytes 8 L, Monocytes 7, Absolute Monocytes 0.5, Eosinophils 2, Absolute Eosinophils 0.1, Basophils 1, Absolute Basophils 0.0, Morphology Comment Not seen Microbiology Results 08/28/19 01:21 Sputum Sputum Gram Stain - Final 08/27/19 04:25 Blood - Blood Aerobic Blood Culture - Preliminary No growth in 24 hours. 08/27/19 04:25 Blood - Blood Anaerobic Blood Culture - Preliminary No growth in 24 hours. 08/27/19 04:10 Blood - Blood Aerobic Blood Culture - Preliminary No growth in 24 hours. 08/27/19 04:10 Blood - Blood Anaerobic Blood Culture - Preliminary No growth in 24 hours. 08/28/19 00:52 Throat Group A Streptococcus Rapid Screen - Final 08/27/19 07:15 Nasopharnyx Influenza Type A Antigen Screen - Final 08/27/19 07:15 Nasopharnyx Influenza Type B Antigen Screen - Final Assessment/ Plan: Nephrology CPS improving without CP or SOB. +WHITAKER +Cough Feeling better. No acute events overnight. Vitals, medications, blood work and imaging reviewed in the chart. NAD. MMM. Neck supple. Wet Rales. RRR. Soft Abd. No C/C. LE Edema 1+. No rash. AAO. Normal Speech. A/ ESRD on HD. Hyponatremia. HTN with CKD/ CHF. Diastolic CHF, A/C. Anemia in CKD. JARED/ Secondary HyperPTH. Mod Malnutrition. P/ Continue current POC and Medications. Arrange for acute HD today. Start Ramipril qhs. Increase Nifedipine as needed. Low sodium diet. AM labs. Daily weight. No NSAIDs. LEFT VENTRICULAR WALL MOTION: NORMAL DOPPLER/COLOR FLOW: MILD TRICUSPID REGURGITATION. MILD PULMONARY HYPERTENSION. ESTIMATED RIGHT VENTRICULAR SYSTOLIC PRESSURE 45 mmHg. COMMENTS: NORMAL LEFT VENTRICULAR EJECTION FRACTION. RIGHT ATRIAL MASS, POSSIBLY RELATED TO A CATHETER. MILD TRICUSPID REGURGITATION. MILD PULMONARY HYPERTENSION. EXAM DESCRIPTION: RAD - Chest Pa And Lat (2 Views) - 08/28/2019 6:14 am CLINICAL HISTORY: Follow up CHF vs Pneumonia Chest pain. COMPARISON: Chest Single View dated 08/27/2019; Chest Pa And Lat (2 Views) dated 08/23/2019; Chest Pa And Lat (2 Views) dated 12/06/2018; Chest Pa And Lat (2 Views ) dated 12/05/2018 FINDINGS: Slight worsening in bilateral pulmonary opacities is noted since comparative study. Findings may be related to pulmonary edema or interstitial pneumonia. The heart is mildly enlarged in size. No displaced fractures. IMPRESSION: Mild worsening in lung aeration since comparative study.
--- NOTE | 2019-08-28 16:01 | P.PN ---
Subjective Date of Service: 08/28/19 Primary Care Provider: Dr. Kelly Chief Complaint: SOB, Cough Subjective: Improving (Slight improvement noted. Edema to the lower extremities improved. Still requiring oxygen.) Physical Examination - Vital Signs Temperature: 98 F Blood Pressure: 166/86 Pulse: 84 Respirations: 18 Pulse Ox (%): 94 - Physical Exam General: Alert, In no apparent distress, Oriented x3, Cooperative HEENT: Atraumatic Neck: Supple Respiratory: Crackles/rales (Crackles to the bases) Cardiovascular: Normal pulses, Regular rate/rhythm Gastrointestinal: Normal bowel sounds, Soft and benign, Non-distended Integumentary: No warmth, No cyanosis, Tenderness/swelling (Mild edema to the lower extremities improved) Neurological: Normal speech, Normal strength at 5/5 x4 extr, Normal tone, Normal affect - Studies Laboratory Data (last 24 hrs) 08/28/19 05:05: Sodium 137, Potassium 4.5, BUN 27 H, Creatinine 4.44 H, Glucose 85, Phosphorus 4.9, Magnesium 2.1 08/28/19 05:05: WBC 5.8, Hgb 11.7 L, Hct 35.1 L, Plt Count 98 L* D Microbiology Data (last 24 hrs): 08/28/19 01:21 Sputum Sputum Gram Stain - Final 08/28/19 00:52 Throat Group A Streptococcus Rapid Screen - Final Medications List Reviewed: Yes Assessment & Plan Discharge Plan: Home Physician Review Additional Text: Impression: Shortness of breath with cough likely related to acute on chronic diastolic CHF with pulmonary hypertension complicated with possible bilateral pneumonia Pulmonary edema with end-stage renal disease on hemodialysis Hypertension Thrombocytopenia Plan: Shortness of breath with cough likely related to acute on chronic diastolic CHF with pulmonary hypertension complicated with possible bilateral pneumonia: Patient has improved with dialysis. Pro calcitonin elevated. Patient started on Levaquin. Will provide medication for cough. Nephrology plans for dialysis again today. Continue fluid restriction. Will monitor and adjust appropriately. Platelet count has decreased. Will monitor this closely. Anticipate discharge likely in the next 24 hr. Pulmonary edema with end-stage renal disease on hemodialysis: Patient received dialysis yesterday. Patient likely requires dialysis again today. Continue fluid restriction. Hypertension: Medications adjusted by Nephrology. Thrombocytopenia: Likely from for infectious process. Will monitor closely. Time Spent Managing Pts Care (In Minutes): 55
[2019-08-28 16:34] LABS: Protime INR 1.25
[2019-08-28] MEDS: HYDROCODONE/CHLORPHEN 5 ML/OSYR PO PRN (17:28)
[2019-08-28] MEDS ORDERED: ramipriL 5 MG CAP PO SCH (21:00)
[2019-08-29 04:35] LABS: Absolute Lymphocytes (CBC) 0.8 K/uL (0.7-4.9); Basophils % 1.1 % (0-1.3); Hematocrit 33.6 % (36.0-45.0); Lymphocytes % 15.9 % (15.3-44.8); MPV 8.5 fL (7.6-11.3)
[2019-08-29 04:47] LABS: Magnesium 2.2 mg/dL (1.8-2.4); Potassium 4.2 mmol/L (3.5-5.1)
--- NOTE | 2019-08-29 07:18 | RAD REPORT ---
EXAM DESCRIPTION: RAD - Chest Pa And Lat (2 Views) - 08/29/2019 7:04 am CLINICAL HISTORY: Follow up pulmonary edema versus pneumonia COMPARISON: Chest Pa And Lat (2 Views) dated 08/28/2019; Chest Single View dated 08/27/2019; Chest For P e Angio dated 09/13/2017 TECHNIQUE: Frontal and lateral views of the chest were obtained. FINDINGS: The lungs are normal volume without a focal consolidation. Diffusely prominent interstitia l pattern seen with mild vascular engorgement. Cardiomegaly is present. Heart size is normal and ce ntral vasculature is within normal limits. No pleural effusion or pneumothorax seen. No acute bony finding noted. No aortic abnormality. IMPRESSION: No focal pneumonia identified. Patient continues to show CHF/ volume overload pattern. This is similar to the August 27 comparison.
[2019-08-29] MEDS: HEPARIN 5000 UNIT/ML 1 ML VIAL SQ SCH (09:00)
[2019-08-29] MEDS: NIFEDIPINE XL 30 MG TABLET PO SCH (09:00)
[2019-08-29] MEDS: GUAIFENESIN 600 MG SA TAB PO SCH (09:34)
[2019-08-29] MEDS: HYDROCODONE/CHLORPHEN 5 ML/OSYR PO PRN (09:34)
[2019-08-29] MEDS: FAMOTIDINE 20 MG TAB PO SCH (09:34)
[2019-08-29] MEDS: FUROSEMIDE 40 MG TABLET PO SCH ×2 (09:35→16:42)
--- NOTE | 2019-08-29 09:35 | P.DS ---
Admission Date: 08/28/19 Discharge Date: 08/29/19 Primary Care Provider: Dr. Kelly Disposition: ROUTINE DISCHARGE Discharge Condition: GOOD Reason for Admission: SOB, Cough Consultations: Nephrology-Dr. Thakur Procedures: CXR: FINDINGS: The lungs are normal volume without a focal consolidation. Diffusely prominent interstitial pattern seen with mild vascular engorgement. Cardiomegaly is present. Heart size is normal and central vasculature is within normal limits. No pleural effusion or pneumothorax seen. No acute bony finding noted. No aortic abnormality. IMPRESSION: No focal pneumonia identified. Patient continues to show CHF/ volume overload pattern. This is similar to the August 27 comparison. ECHO: EF 64% LEFT VENTRICULAR WALL MOTION: NORMAL DOPPLER/COLOR FLOW: MILD TRICUSPID REGURGITATION. MILD PULMONARY HYPERTENSION. ESTIMATED RIGHT VENTRICULAR SYSTOLIC PRESSURE 45 mmHg. COMMENTS: NORMAL LEFT VENTRICULAR EJECTION FRACTION. RIGHT ATRIAL MASS, POSSIBLY RELATED TO A CATHETER. MILD TRICUSPID REGURGITATION. MILD PULMONARY HYPERTENSION CT Scan: FINDINGS: No dense or focal consolidation of the lung parenchyma. Patient has is alveolar opacification throughout the lower lung thomas. Patient has fluid retention in the subcutaneous fatty tissues. There is a mild amount of ascites adjacent to the liver. This is all believed to be part of a volume overload associated with pending dialysis. Borderline to mild cardiomegaly is present. No pericardial effusion seen. Patient has dense calcifications in the IVC at the junction with the right atrium. An additional dense calcification is present more inferiorly in the IVC. The coarse calcifications extend anterior to the IVC atrial junction. These calcifications may be within the pericardium or inferior wall of the right atrium. The calcifications appear to be restrictive but not occlusive of blood flow from the IVC into the right atrium. Prominent azygos veins along the aorta and spine may be part of a collateralized network. Hepatomegaly is present. There is a slightly nodular liver contour. No focal liver parenchymal lesions seen. No portal vein thrombus. No splenomegaly or focal splenic finding. No pancreatic acute process. Cholecystectomy clips are present. No biliary tree dilatation. Small atrophic kidneys are present not unexpected in a dialysis patient. No acute renal process seen. No adrenal gland abnormality. No dilated bowel loops or bowel wall thickening. No free air or pneumatosis. Mild congested appearance to the peritoneal fat. No mass or bulky lymphadenopathy. Periumbilical fat only hernias are present. Largest is 4 cm. These contain congested fat similar to the subcutaneous fat. IMPRESSION Patient has dense calcifications at the IVC right atrial junction with calcifications extending anteriorly into either the pericardium or floor of the right atrium. This may be the finding seen on cardiac echo. Etiology for the calcifications cannot be determined from this study. The calcifications significantly narrow the lumen of the IVC. The calcifications are restrictive but not occlusive. There are some collateralized upper abdominal pains. Hepatomegaly without focal liver lesion. No portal vein thrombus. Alveolar edema, minimal ascites and subcutaneous fluid retention are present all believed to be part of volume overload and pending dialysis. Medical problem List: Shortness of breath with cough likely related to acute on chronic diastolic CHF with mild pulmonary hypertension complicated with possible bilateral pneumonia Pulmonary edema with end-stage renal disease on hemodialysis Hypertension Thrombocytopenia CT scan showing dense calcifications at the IVC right atrial junction with calcifications Brief History of Present Illness: 39-year-old female with history of end-stage renal disease on hemodialysis, hypertension. Patient reported increasing cough, congestion. She reports the cough has been chronic but getting worse. Today she had fever about 100.6. She felt tired and weak. She has had poor oral intake. She mention that she came to the ER recently. She was treated for viral infection and sent home. She came to the ER for further evaluation. In the ER patient was evaluated. Pro calcitonin 1.08. Flu test negative. White count 6.2, hemoglobin 12. Platelet count 134. Sodium 135, potassium 4.9, BUN of 31, creatinine 5, GFR of 10. BNP greater than 59,000. Lactic acid normal. Chest x-ray shows possible fluid overload. Patient admitted for further evaluation and treatment. When I saw the patient ER, she did not appear septic. Patient reports chronic cough. She is not on a fluid restriction at home. She does take Lasix. Hospital Course: Patient presented with shortness of breath with cough. Patient with history of hypertension and end-stage renal disease on hemodialysis. Patient received dialysis during the course of her stay. There was some question of possible pneumonia as pro calcitonin was elevated. Influenza test negative. Patient has improved. Blood cultures negative. Intermittent fevers noted. Echocardiogram shows ejection fraction 64% with mild pulmonary hypertension. Patient likely with acute on chronic diastolic CHF. There was some question of possible mass on the echo to the right atriam. This was discussed in detail with cardiology, nephrology and radiology. Patient had prior CT scan showing some dense calcifications. Repeat CT scan of the abdomen with contrast showed dense calcifications in the IVC right atrial junction. This likely correlates with echocardiogram finding. Patient received dialysis in the course of her stay with improvement. At discharge she does not require any oxygen. At discharge will recommend to continue with Levaquin 250 mg every 48 hr for 2 more doses. Patient may use Mucinex 600 mg as needed for congestion. Recommend to recheck chest x-ray in 2-4 weeks to monitor resolution. Patient will continue with dialysis as directed. Patient did receive dialysis prior to discharge. For her CHF, patient will continue a 1500 cc per day fluid restriction and low-salt diet. Recommend to monitor weight daily. If her weight increases by more than 5 lb she is to contact nephrology for further recommendation. Patient will continue with Lasix 60 mg twice daily. Patient with hypertension. Blood pressure was elevated upon admission. Medications adjusted by Nephrology for better control. Ramipril was added. At discharge she will continue with medications Procardia XL 30 mg 1 pill twice daily and a ramipril 10 mg daily. Recommend to maintain blood pressures less 150/80. Further adjustment can be done by nephrology. Patient had thrombocytopenia. This is likely infectious related. Peripheral pulse prior shows no schistocytes. Recommend to recheck CBC in 1-2 weeks to monitor progress and resolution. Patient will continue with Levaquin 250 mg 1 p.o. every 48 hr for 2 more doses. Vital Signs/Physical Exam: Temp Pulse Resp BP Pulse Ox 97.8 F 69 18 99/57 L 95 08/29/19 04:00 08/29/19 04:00 08/29/19 04:00 08/29/19 04:00 08/29/19 04:00 General: Alert, In no apparent distress, Cooperative HEENT: Atraumatic Neck: Supple Respiratory: Crackles/rales (To the bases bilateral but good air movement.) Cardiovascular: Normal pulses, Regular rate/rhythm Gastrointestinal: Normal bowel sounds, Soft and benign, Non-distended, No tenderness, No masses, No rebound, No guarding Musculoskeletal: No erythema, No tenderness, No warmth Integumentary: No tenderness/swelling, No erythema, No warmth, No cyanosis Neurological: Normal speech, Normal strength at 5/5 x4 extr, Normal tone, Normal affect Laboratory Data at Discharge: WBC 4.8 K/uL (4.3-10.9) D 08/29/19 04:23 Hgb 11.3 g/dL (12.0-15.0) L 08/29/19 04:23 Hct 33.6 % (36.0-45.0) L 08/29/19 04:23 Plt Count 99 K/uL (152-406) L* 08/29/19 04:23 PT 14.6 SECONDS (9.5-12.5) H 08/28/19 16:13 INR 1.25 08/28/19 16:13 APTT 40.8 SECONDS (24.3-36.9) H 08/28/19 16:13 Sodium 136 mmol/L (136-145) 08/29/19 04:23 Potassium 4.2 mmol/L (3.5-5.1) 08/29/19 04:23 BUN 27 mg/dL (7-18) H 08/29/19 04:23 Creatinine 4.16 mg/dL (0.55-1.3) H 08/29/19 04:23 Glucose 89 mg/dL (74-106) 08/29/19 04:23 Phosphorus 4.9 mg/dL (2.5-4.9) 08/28/19 05:05 Magnesium 2.2 mg/dL (1.8-2.4) 08/29/19 04:23 Total Bilirubin 0.9 mg/dL (0.2-1.0) 08/27/19 04:10 AST 41 U/L (15-37) H 08/27/19 04:10 ALT 22 U/L (12-78) 08/27/19 04:10 Alkaline Phosphatase 340 U/L (45-117) H 08/27/19 04:10 Home Medications: Furosemide [Lasix] 60 mg PO BID 12/05/18 Nifedipine [Procardia Xl] 30 mg PO BID 12/05/18 Albuterol Sulfate [Proair Hfa] 2 puff IH TID PRN #1 hfa.aer.ad 08/29/19 Guaifenesin [Mucinex] 600 mg PO BID PRN #15 tab.er.12h 08/29/19 levoFLOXacin [Levaquin] 250 mg PO SEECOM #2 tab 08/29/19 ramipriL [Altace*] 10 mg PO BEDTIME #30 cap 08/29/19 New Medications: Albuterol Sulfate [Proair Hfa] 2 puff IH TID PRN #1 hfa.aer.ad PRN Reason: Shortness Of Breath Guaifenesin [Mucinex] 600 mg PO BID PRN #15 tab.er.12h PRN Reason: Cough levoFLOXacin [Levaquin] 250 mg PO SEECOM #2 tab ramipriL [Altace*] 10 mg PO BEDTIME #30 cap Patient Discharge Instructions: 1. Recommend follow up with PCP in 1 week to follow up this hospitalization. 2. Patient presented with shortness of breath with cough. Patient with history of hypertension and end-stage renal disease on hemodialysis. Patient received dialysis during the course of her stay. There was some question of possible pneumonia as pro calcitonin was elevated. Influenza test negative. Patient has improved. Blood cultures negative. Intermittent fevers noted. Echocardiogram shows ejection fraction 64% with mild pulmonary hypertension. Patient likely with acute on chronic diastolic CHF. There was some question of possible mass on the echo to the right atriam. This was discussed in detail with cardiology, nephrology and radiology. Patient had prior CT scan showing some dense calcifications. Repeat CT scan of the abdomen with contrast showed dense calcifications in the IVC right atrial junction. This likely correlates with echocardiogram finding. Patient received dialysis in the course of her stay with improvement. At discharge she does not require any oxygen. At discharge will recommend to continue with Levaquin 250 mg every 48 hr for 2 more doses. Patient may use Mucinex 600 mg as needed for congestion. Recommend to recheck chest x-ray in 2-4 weeks to monitor resolution. Patient will continue with dialysis as directed. Patient did receive dialysis prior to discharge. For her CHF, patient will continue a 1500 cc per day fluid restriction and low-salt diet. Recommend to monitor weight daily. If her weight increases by more than 5 lb she is to contact nephrology for further recommendation. Patient will continue with Lasix 60 mg twice daily. 3. Patient with hypertension. Blood pressure was elevated upon admission. Medications adjusted by Nephrology for better control. Ramipril was added. At discharge she will continue with medications Procardia XL 30 mg 1 pill twice daily and a ramipril 10 mg daily. Recommend to maintain blood pressures less 150/80. Further adjustment can be done by nephrology. 4. Patient had thrombocytopenia. This is likely infectious related. Peripheral pulse prior shows no schistocytes. Recommend to recheck CBC in 1-2 weeks to monitor progress and resolution. Patient will continue with Levaquin 250 mg 1 p.o. every 48 hr for 2 more doses. Diet: Renal Activity: Ad ana maria Time spent managing pt's care (in minutes): 55
[2019-08-29 10:14] VITALS: O2SAT 94
[2019-08-29] MEDS: Levofloxacin 250mg IV 250 MG/50 ML BAG IV SCH (12:36)
--- NOTE | 2019-08-29 14:00 | RAD REPORT ---
EXAM DESCRIPTION: CT - Abdomen W Contrast - 08/29/2019 1:31 pm CLINICAL HISTORY: w/ lung base attention IVC atrial junction COMPARISON: Chest For Pe Angio dated 09/13/2017; Chest Pa And Lat (2 Views) dated 08/29/2019 TECHNIQUE: Biphasic, helical CT imaging of the abdomen was performed following 100 ml non-ionic IV c ontrast. No oral contrast. All CT scans are performed using dose optimization technique as appropriate and may include automated exposure control or mA/KV adjustment according to patient size. FINDINGS: No dense or focal consolidation of the lung parenchyma. Patient has is alveolar opacificat ion throughout the lower lung thomas. Patient has fluid retention in the subcutaneous fatty tissues. There is a mild amount of ascites adjacent to the liver. This is all believed to be part of a volume overload associated with pending dialysis. Borderline to mild cardiomegaly is present. No pericardial effusion seen. Patient has dense calcifications in the IVC at the junction with the right atrium. An additional dens e calcification is present more inferiorly in the IVC. The coarse calcifications extend anterior to t he IVC atrial junction. These calcifications may be within the pericardium or inferior wall of the ri ght atrium. The calcifications appear to be restrictive but not occlusive of blood flow from the IVC into the right atrium. Prominent azygos veins along the aorta and spine may be part of a collateraliz ed network. Hepatomegaly is present. There is a slightly nodular liver contour. No focal liver parenchymal lesion s seen. No portal vein thrombus. No splenomegaly or focal splenic finding. No pancreatic acute proces s. Cholecystectomy clips are present. No biliary tree dilatation. Small atrophic kidneys are present not unexpected in a dialysis patient. No acute renal process seen. No adrenal gland abnormality. No dilated bowel loops or bowel wall thickening. No free air or pneumatosis. Mild congested appearan ce to the peritoneal fat. No mass or bulky lymphadenopathy. Periumbilical fat only hernias are presen t. Largest is 4 cm. These contain congested fat similar to the subcutaneous fat. IMPRESSION Patient has dense calcifications at the IVC right atrial junction with calcifications ext ending anteriorly into either the pericardium or floor of the right atrium. This may be the finding s een on cardiac echo. Etiology for the calcifications cannot be determined from this study. The calcifications significantly narrow the lumen of the IVC. The calcifications are restrictive but not occlusive. There are some collateralized upper abdominal pains. Hepatomegaly without focal liver lesion. No portal vein thrombus. Alveolar edema, minimal ascites and subcutaneous fluid retention are present all believed to be part of volume overload and pending dialysis.
[2019-08-29 14:20] VITALS: BP 124/65; TEMP 98.3
--- NOTE | 2019-08-29 19:39 | P.PN ---
Date of Service: 08/29/19 Vital Signs Temp Pulse Resp BP Pulse Ox 98.3 F 71 18 124/65 95 08/29/19 12:00 08/29/19 16:42 08/29/19 12:00 08/29/19 16:42 08/29/19 12:00 Microbiology Results 08/28/19 00:52 Throat Culture & Sensitivity - Preliminary NORMAL UPPER RESPIRATORY ZEV GROWN. 08/28/19 01:21 Sputum Sputum Gram Stain - Final 08/28/19 01:21 Sputum Culture & Sensitivity - Preliminary 08/27/19 04:25 Blood - Blood Aerobic Blood Culture - Preliminary No growth in 24 hours. 08/27/19 04:25 Blood - Blood Anaerobic Blood Culture - Preliminary No growth in 24 hours. 08/27/19 04:10 Blood - Blood Aerobic Blood Culture - Preliminary No growth in 24 hours. 08/27/19 04:10 Blood - Blood Anaerobic Blood Culture - Preliminary No growth in 24 hours. 08/28/19 00:52 Throat Group A Streptococcus Rapid Screen - Final 08/27/19 07:15 Nasopharnyx Influenza Type A Antigen Screen - Final 08/27/19 07:15 Nasopharnyx Influenza Type B Antigen Screen - Final Assessment/ Plan: Nephrology CPS improving without CP or SOB. +WHITAKER +Cough Feeling better. No acute events overnight. Vitals, medications, blood work and imaging reviewed in the chart. NAD. MMM. Neck supple. Wet Rales. RRR. Soft Abd. No C/C. LE Edema 1+. No rash. AAO. Normal Speech. A/ ESRD on HD. Hyponatremia. HTN with CKD/ CHF. Diastolic CHF, A/C. Anemia in CKD. JARED/ Secondary HyperPTH. Mod Malnutrition. P/ Continue current POC and Medications. Arrange for acute HD today. Low sodium diet. AM labs. Daily weight. No NSAIDs. Case reviewed with Dr. Solano regarding right atrial mass. LEFT VENTRICULAR WALL MOTION: NORMAL DOPPLER/COLOR FLOW: MILD TRICUSPID REGURGITATION. MILD PULMONARY HYPERTENSION. ESTIMATED RIGHT VENTRICULAR SYSTOLIC PRESSURE 45 mmHg. COMMENTS: NORMAL LEFT VENTRICULAR EJECTION FRACTION. RIGHT ATRIAL MASS, POSSIBLY RELATED TO A CATHETER. MILD TRICUSPID REGURGITATION. MILD PULMONARY HYPERTENSION. EXAM DESCRIPTION: RAD - Chest Pa And Lat (2 Views) - 08/28/2019 6:14 am CLINICAL HISTORY: Follow up CHF vs Pneumonia Chest pain. COMPARISON: Chest Single View dated 08/27/2019; Chest Pa And Lat (2 Views) dated 08/23/2019; Chest Pa And Lat (2 Views) dated 12/06/2018; Chest Pa And Lat (2 Views ) dated 12/05/2018 FINDINGS: Slight worsening in bilateral pulmonary opacities is noted since comparative study. Findings may be related to pulmonary edema or interstitial pneumonia. The heart is mildly enlarged in size. No displaced fractures. IMPRESSION: Mild worsening in lung aeration since comparative study.
== END 2019-08-29 18:03 | disposition home or self-care (01) | DRG 291 ==
LOC: ER 03:42 → ERHOLD 07:00 → 2ND 08:05 → OBSVTOIN 08-28 12:41
PROVIDERS: ADMIT Family Medicine; ATTEND Family Medicine
PROC: 5A1D70Z Performance of Urinary Filtration, Intermittent, Less than 6 Hours Per Day (ICD-10-PCS; principal; 2019-08-27)
PROC: 5A1D70Z Performance of Urinary Filtration, Intermittent, Less than 6 Hours Per Day (ICD-10-PCS; 2019-08-27)
PROC: 5A1D70Z Performance of Urinary Filtration, Intermittent, Less than 6 Hours Per Day (ICD-10-PCS; 2019-08-27)
DX: I13.2 Hypertensive heart and chronic kidney disease with heart failure and with stage 5 chronic kidney disease, or end stage renal disease (principal); I50.33 Acute on chronic diastolic (congestive) heart failure; N18.6 End stage renal disease; J18.9 Pneumonia, unspecified organism; E87.1 Hypo-osmolality and hyponatremia; E46 Unspecified protein-calorie malnutrition; Z99.2 Dependence on renal dialysis; I27.20 Pulmonary hypertension, unspecified; D69.6 Thrombocytopenia, unspecified; Z68.34 Body mass index [BMI] 34.0-34.9, adult; I25.10 Atherosclerotic heart disease of native coronary artery without angina pectoris
CPT/HCPCS: 36415; 71045; 71046; 74160; 80048; 80076; 83010; 83605; 83615; 83735; 83880; 84100; 84145; 84484; 85025; 85610; 85730; 87040; 87070; 87081; 87205; 87804; 90935; 93005; 93306; 94640; 96365; 96367; 96368; 99285; G0378; J0360; J0456; J1644; J7030; Q9967

== ENCOUNTER 2020-02-09 23:08 | Emergency (ER) | payer OTHER ==
--- OUTSIDE RECORDS SUMMARY | 2020-02-09 23:10 | XMS REPORT | Continuity of Care Document ---
:1980 Author Organization [facility] t Address [address] [place] [address] Care Team Providers Name Role Phone Unavailable Unavailable Unavailable Problems This patient has no known problems. Allergies, Adverse Reactions, Alerts This patient has no known allergies or adverse reactions. Medications This patient has no known medications. Procedures This patient has no known procedures. Encounters Start End Encounter Admission Attending Care Care Encounter Source Date/Time Date/Time Type Type Clinicians Facility Department ID 2020-02-01 Outpatient [id number] [facility] 09:59:06 2018-10-18 Inpatient [facility] [id number] [facility] 08:59:05 2020-01-24 2020-01-24 Outpatient [id number] 08:53:00 08:53:00 2018-10-19 2018-10-19 Outpatient [facility] [id number] [facility] 08:08:00 08:08:00 Results This patient has no known results.
[2020-02-10] MEDS ORDERED: FENTANYL CITR 100 MCG/2 ML ONE (00:08)
[2020-02-10 00:13] LABS: Absolute Lymphocytes (CBC) 0.6 K/uL (0.7-4.9); Basophils % 1.2 % (0-1.3); Hematocrit 39.5 % (36.0-45.0); Lymphocytes % 8.7 % (15.3-44.8); RBC Red Blood Cell Count 4.29 M/uL (3.86-4.86)
--- NOTE | 2020-02-10 00:17 | EDPHYS ---
Physician Documentation [facility] Name: Puja Le Age: 39 yrs Sex: Female : 1980 Arrival Date: 02/09/2020 Time: 23:12 Bed 15 Private MD: ED Physician Dexter Orr HPI: 02/09 00:07 This 39 yrs old Female presents to ER via Ambulatory with complaints of Dental snw Injury. 00:07 The patient presents with bleeding. The problem is located in the lower left first snw molar and lower left second molar and lower left third molar. Onset: The symptoms/episode began/occurred suddenly, today. Duration: The symptoms are continuous. Associated signs and symptoms: The patient has no apparent associated signs or symptoms. Severity of symptoms: At their worst the symptoms were moderate. The patient has not experienced similar symptoms in the past. It is unknown whether or not the patient has recently seen a physician. 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 Awaiting kidney transplant list. As a pre-list requirement she had dental surgery today. Historical: - Allergies: 02/08 23:27 Zosyn; jd3 - Home Meds: 23:27 Nifedipine Oral [Active]; jd3 - PMHx: 23:27 Dialysis; Hypertension; Renal Disease; jd3 - PSHx: 23:27 dialysis site to left upper arm; jd3 - Immunization history:: Adult Immunizations up to date. - Social history:: Smoking status: Patient denies any tobacco usage or history of. ROS: 02/09 00:01 Constitutional: Negative for fever, chills, and weight loss, Eyes: Negative for injury, snw pain, redness, and discharge, ENT: Negative for injury, pain, and discharge, dental extraction x 3 today, gums continue bleeding. Pressure applied in ED Neck: Negative for injury, pain, and swelling, Cardiovascular: Negative for chest pain, palpitations, and edema, Respiratory: Negative for shortness of breath, cough, wheezing, and pleuritic chest pain, Abdomen/GI: Negative for abdominal pain, nausea, vomiting, diarrhea, and constipation, Back: Negative for injury and pain, : Negative for injury, bleeding, discharge, and swelling, MS/Extremity: Negative for injury and deformity, Skin: Negative for injury, rash, and discoloration, Neuro: Negative for headache, weakness, numbness, tingling, and seizure, Psych: Negative for depression, anxiety, suicide ideation, homicidal ideation, and hallucinations. Exam: 00:01 Constitutional: This is a well developed, well nourished patient who is awake, alert, snw and in no acute distress. Head/Face: Normocephalic, atraumatic. Eyes: Pupils equal round and reactive to light, extra-ocular motions intact. Lids and lashes normal. Conjunctiva and sclera are non-icteric and not injected. Cornea within normal limits. Periorbital areas with no swelling, redness, or edema. Neck: Trachea midline, no thyromegaly or masses palpated, and no cervical lymphadenopathy. Supple, full range of motion without nuchal rigidity, or vertebral point tenderness. No Meningismus. Chest/axilla: Normal chest wall appearance and motion. Nontender with no deformity. No lesions are appreciated. Cardiovascular: Regular rate and rhythm with a normal S1 and S2. No gallops, murmurs, or rubs. Normal PMI, no JVD. No pulse deficits. Respiratory: Lungs have equal breath sounds bilaterally, clear to auscultation and percussion. No rales, rhonchi or wheezes noted. No increased work of breathing, no retractions or nasal flaring. Abdomen/GI: Soft, non-tender, with normal bowel sounds. No distension or tympany. No guarding or rebound. No evidence of tenderness throughout. Back: No spinal tenderness. No costovertebral tenderness. Full range of motion. Skin: Warm, dry with normal turgor. Normal color with no rashes, no lesions, and no evidence of cellulitis. MS/ Extremity: Pulses equal, no cyanosis. Neurovascular intact. Full, normal range of motion. Neuro: Awake and alert, GCS 15, oriented to person, place, time, and situation. Cranial nerves II-XII grossly intact. Motor strength 5/5 in all extremities. Sensory grossly intact. Cerebellar exam normal. Normal gait. Psych: Awake, alert, with orientation to person, place and time. Behavior, mood, and affect are within normal limits. 00:01 ENT: External ear(s): are unremarkable, TM's: are normal, Mouth: is normal, Gums: bleeding, on the lower left third molar, lower left second molar and lower left first molar, Voice: is normal. Vital Signs: 02/08 23:27 BP 185 / 95; Pulse 73; Resp 16 S; Temp 97.7(TE); Pulse Ox 95% on R/A; Weight 79.38 kg jd3 (R); Height 5 ft. 0 in. (152.40 cm) (R); Pain 8/10; 02/09 00:38 BP 180 / 98; Pulse 74; Resp 17; Temp 98; Pulse Ox 99% ; rv 02/08 23:27 Body Mass Index 34.18 (79.38 kg, 152.40 cm) jd3 MDM: 02/08 23:38 Patient medically screened. snw 02/09 00:18 Data reviewed: vital signs, nurses notes. Data interpreted: Pulse oximetry: on room air snw is 95 %. Interpretation: acceptable. Counseling: I had a detailed discussion with the patient and/or guardian regarding: the historical points, exam findings, and any diagnostic results supporting the discharge/admit diagnosis, lab results, the need for outpatient follow up, to return to the emergency department if symptoms worsen or persist or if there are any questions or concerns that arise at home. Special discussion: I have referred the patient to see his PCP for further evaluation of high blood pressure. Based on the history and exam findings, there is no indication for further emergent testing or inpatient evaluation. I discussed with the patient/guardian the need to see a dentist for further evaluation of the symptoms. I discussed with the patient/guardian the need to see the primary care provider for further evaluation of the symptoms. 02/08 23:38 Order name: CBC with Diff snw 02/08 23:38 Order name: PT-INR; Complete Time: 00:55 snw 02/08 23:38 Order name: Misc. Order: place 4x4 in area of bleeding and have pt bite down for direct snw pressure; Complete Time: 00:05 02/08 23:38 Order name: CBC with Automated Diff; Complete Time: 00:16 EDMS 02/09 00:20 Order name: Misc. Order: Please give 4X4s to pt for use in direct pressure to bleeding snw gums; Complete Time: 00:35 Administered Medications: 00:25 Drug: fentaNYL (PF) 50 mcg {Note: 0.} Route: IM; Site: left deltoid; rv 00:35 Follow up: Response: No adverse reaction; Marked relief of symptoms; RASS: Drowsy (-1) rv Disposition: 00:55 Co-signature as Attending Physician, Dexter Orr MD. satnam Disposition: 02/10/20 00:17 Discharged to Home. Impression: Gingival bleeding s/p tooth extraction. - Condition is Stable. - Discharge Instructions: Dental Extraction, Care After. - Medication Reconciliation Form, Thank You Letter, Antibiotic Education, Prescription Opioid Use form. - Follow up: Emergency Department; When: As needed; Reason: Worsening of condition. Follow up: Private Physician; When: 2 - 3 days; Reason: Recheck today's complaints, Continuance of care, Re-evaluation by your physician. - Notes: Continue direct pressure to bleeding area. Return as needed. Signatures: Dispatcher [employer] Dexter Matos MD MD pkl Waters, Shelly, APPLICATION DEVELOPMENT TEAM LEAD-C APPLICATION DEVELOPMENT TEAM LEAD-Csnw Ming Toure RN RN jChance Akers RN RN rv Corrections: (The following items were deleted from the chart) 00:41 00:17 02/10/2020 00:17 Discharged to Home. Impression: Gingival bleeding s/p tooth rv extraction. Condition is Stable. Forms are Medication Reconciliation Form, Thank You Letter, Antibiotic Education, Prescription Opioid Use. Follow up: Emergency Department; When: As needed; Reason: Worsening of condition. Follow up: Private Physician; When: 2 - 3 days; Reason: Recheck today's complaints, Continuance of care, Re-evaluation by your physician. snw
--- NOTE | 2020-02-10 00:17 | ER ---
Nurse's Notes [facility] Name: Puja Le Age: 39 yrs Sex: Female : 1980 Arrival Date: 02/09/2020 Time: 23:12 Bed 15 Private MD: Diagnosis: Gingival bleeding s/p tooth extraction Presentation: 02/08 23:24 Chief complaint: Patient states: "I had dental surgery today and now I won't stop jd3 bleeding from my teeth. I am on dialysis and they use heparin, so that's probably why it is bleeding.". Coronavirus screen: At this time, the client does not indicate any symptoms associated with coronavirus-19. Ebola Screen: Patient negative for fever greater than or equal to 101.5 degrees Fahrenheit, and additional compatible Ebola Virus Disease symptoms. Initial Sepsis Screen: Does the patient meet any 2 criteria? No. Patient's initial sepsis screen is negative. Does the patient have a suspected source of infection? No. Patient's initial sepsis screen is negative. Risk Assessment: Do you want to hurt yourself or someone else? Patient reports no desire to harm self or others. Onset of symptoms was February 09, 2020. 23:24 Method Of Arrival: Ambulatory jd3 23:24 Acuity: KATHRYN 3 jd3 Historical: - Allergies: 23:27 Zosyn; jd3 - Home Meds: 23:27 Nifedipine Oral [Active]; jd3 - PMHx: 23:27 Dialysis; Hypertension; Renal Disease; jd3 - PSHx: 23:27 dialysis site to left upper arm; jd3 - Immunization history:: Adult Immunizations up to date. - Social history:: Smoking status: Patient denies any tobacco usage or history of. Screenin/15 00:37 Abuse screen: Denies threats or abuse. Denies injuries from another. Nutritional rv screening: No deficits noted. Tuberculosis screening: No symptoms or risk factors identified. Fall Risk None identified. Assessment: 02/08 23:40 General: Appears in no apparent distress. uncomfortable, Behavior is calm, cooperative, aj1 appropriate for age. Pain: Complains of pain in mouth. Neuro: Level of Consciousness is awake, alert, obeys commands, Oriented to person, place, time, situation. Cardiovascular: Patient's skin is warm and dry. Respiratory: Airway is patent Respiratory effort is even, unlabored, Respiratory pattern is regular, symmetrical. GI: No signs and/or symptoms were reported involving the gastrointestinal system. : No signs and/or symptoms were reported regarding the genitourinary system. EENT: Bleeding from gums, swelling to left side of mouth. Patient has gauze in place to site of bleeding. Derm: No signs and/or symptoms reported regarding the dermatologic system. Skin is pink, warm \\T\\ dry. normal. Musculoskeletal: No signs and/or symptoms reported regarding the musculoskeletal system. Circulation, motion, and sensation intact. 02/09 00:35 Reassessment: given dc instructions. awaiting for family member to bring patient back rv home. 00:36 General: Appears uncomfortable, Behavior is calm, cooperative. Pain: Complains of pain rv in lower left first molar and lower left second molar and lower left third molar. Neuro: Level of Consciousness is awake, alert, obeys commands, Oriented to person, place, time, situation. Cardiovascular: Patient's skin is warm and dry. Respiratory: Airway is patent Respiratory effort is even, unlabored. EENT: bleeding gums. swelling on the left side.. Derm: Skin is intact. 00:39 Reassessment: provider aware of vital signs. rv Vital Signs: 02/08 23:27 BP 185 / 95; Pulse 73; Resp 16 S; Temp 97.7(TE); Pulse Ox 95% on R/A; Weight 79.38 kg jd3 (R); Height 5 ft. 0 in. (152.40 cm) (R); Pain 8/10; 02/09 00:38 BP 180 / 98; Pulse 74; Resp 17; Temp 98; Pulse Ox 99% ; rv 02/08 23:27 Body Mass Index 34.18 (79.38 kg, 152.40 cm) jd3 ED Course: 02/08 23:12 Patient arrived in ED. cl3 23:26 Triage completed. jd3 23:28 Arm band placed on. jd3 23:32 Nannette Toledo, BRIAN is Primary Nurse. aj1 23:35 Padmini Bradley FNP-C is PHCP. snw 23:35 Dexter Orr MD is Attending Physician. snw 02/09 00:35 No provider procedures requiring assistance completed. Patient did not have IV access rv during this emergency room visit. 00:37 Patient has correct armband on for positive identification. Pulse ox on. NIBP on. rv Administered Medications: 00:25 Drug: fentaNYL (PF) 50 mcg {Note: 0.} Route: IM; Site: left deltoid; rv 00:35 Follow up: Response: No adverse reaction; Marked relief of symptoms; RASS: Drowsy (-1) rv Outcome: 00:17 Discharge ordered by MD. burgos 00:37 Condition: improved rv 00:37 Discharge instructions given to patient, Instructed on discharge instructions, follow up and referral plans. wound care, Demonstrated understanding of instructions, follow-up care, wound care. 00:41 Discharged to home ambulatory. rv 00:41 Patient left the ED. rv Signatures: Nannette Toledo RN RN aj1 Padmini Bradley, STRAIGHT EDGER-C STRAIGHT EDGER-Csnw Ming Toure RN RN jd3 Chance Lee RN RN rv Lexus Moralez cl3
[2020-02-10 00:24] LABS: Protime INR 1.16
[2020-02-10 00:48] VITALS: BP 180/98; TEMP 98; O2SAT 99
== END 2020-02-10 00:41 | disposition home or self-care (01) ==
LOC: ER 23:08
DX: Z98.818 Other dental procedure status (principal); I12.0 Hypertensive chronic kidney disease with stage 5 chronic kidney disease or end stage renal disease; N18.6 End stage renal disease; Z99.2 Dependence on renal dialysis; Z88.8 Allergy status to other drugs, medicaments and biological substances
CPT/HCPCS: 36415; 85025; 85610; 96372; 99283

== ENCOUNTER 2021-04-20 17:30 | Observation (INO) | payer OTHER ==
[2021-04-20 18:32] LABS: Absolute Lymphocytes (CBC) 0.5 K/uL (0.7-4.9); Hematocrit 42.7 % (36.0-45.0); Lymphocytes % 6.1 % (15.3-44.8); MPV 9.1 fL (7.6-11.3); RBC Red Blood Cell Count 4.69 M/uL (3.86-4.86)
[2021-04-20 18:34] LABS: Protime INR 1.13
[2021-04-20] MEDS ORDERED: NA CHLORIDE 0.9% 1,000 ML ONE (18:48)
--- NOTE | 2021-04-20 18:50 | RAD REPORT ---
EXAM DESCRIPTION: RAD - Chest Single View - 04/20/2021 6:39 pm CLINICAL HISTORY: COUGH Chest pain. COMPARISON: Chest Pa And Lat (2 Views) dated 08/29/2019; Chest Pa And Lat (2 Views) dated 08/28/2019; Ch est Single View dated 08/27/2019; Chest Pa And Lat (2 Views) dated 08/23/2019 FINDINGS: Portable technique limits examination quality. Mild to moderate pulmonary edema is seen. The heart is significantly enlarged. No displaced fractures .Aortic atherosclerosis. IMPRESSION: Mild to moderate CHF.
--- NOTE | 2021-04-20 19:05 | EDPHYS ---
Physician Documentation [facility] Name: Puja Le Age: 41 yrs Sex: Female : 1980 Arrival Date: 04/20/2021 Time: 17:30 Bed 5 Private MD: ED Physician Aleksander Ramírez HPI: 04/20 18:55 This 41 yrs old Female presents to ER via Wheelchair with complaints of meredith Numbness Of Face, Near Syncope. 18:55 The patient's problem is reported as weakness, that is generalized. Onset: The meredith symptoms/episode began/occurred today. Duration: This was a single incident. Context: the episode(s) was witnessed, by family, occurred at home. The symptoms are alleviated by nothing. The symptoms are aggravated by nothing. Associated signs and symptoms: Pertinent positives: weakness. Severity of symptoms: At their worst the symptoms were mild in the emergency department the symptoms are unchanged. Patient's baseline: Neuro: alert and fully oriented. The patient has not experienced similar symptoms in the past. Historical: - Allergies: 17:50 Zosyn; ll1 - PMHx: 17:50 Dialysis; Hypertension; Renal Disease; ll1 - Immunization history:: Client reports having NOT received the Covid vaccine. - Social history:: Smoking status: Patient denies any tobacco usage or history of. - Family history:: not pertinent. ROS: 18:55 Constitutional: Negative for fever, chills, and weight loss, Eyes: Negative for injury, meredith pain, redness, and discharge, ENT: Negative for injury, pain, and discharge, Neck: Negative for injury, pain, and swelling, Cardiovascular: Negative for chest pain, palpitations, and edema, Respiratory: Negative for shortness of breath, cough, wheezing, and pleuritic chest pain, Abdomen/GI: Negative for abdominal pain, nausea, vomiting, diarrhea, and constipation, Back: Negative for injury and pain, : Negative for injury, bleeding, discharge, and swelling, MS/Extremity: Negative for injury and deformity, Skin: Negative for injury, rash, and discoloration, Psych: Negative for depression, anxiety, suicide ideation, homicidal ideation, and hallucinations, Allergy/Immunology: Negative for hives, rash, and allergies, Endocrine: Negative for neck swelling, polydipsia, polyuria, polyphagia, and marked weight changes, Hematologic/Lymphatic: Negative for swollen nodes, abnormal bleeding, and unusual bruising. 18:55 Neuro: Positive for weakness. Exam: 18:55 Radiologist reports: negative meredith 18:55 Constitutional: This is a well developed, well nourished patient who is awake, alert, and in no acute distress. Head/Face: Normocephalic, atraumatic. Eyes: Pupils equal round and reactive to light, extra-ocular motions intact. Lids and lashes normal. Conjunctiva and sclera are non-icteric and not injected. Cornea within normal limits. Periorbital areas with no swelling, redness, or edema. ENT: Nares patent. No nasal discharge, no septal abnormalities noted. Tympanic membranes are normal and external auditory canals are clear. Oropharynx with no redness, swelling, or masses, exudates, or evidence of obstruction, uvula midline. Mucous membranes moist. Neck: Trachea midline, no thyromegaly or masses palpated, and no cervical lymphadenopathy. Supple, full range of motion without nuchal rigidity, or vertebral point tenderness. No Meningismus. Chest/axilla: Normal chest wall appearance and motion. Nontender with no deformity. No lesions are appreciated. Cardiovascular: Regular rate and rhythm with a normal S1 and S2. No gallops, murmurs, or rubs. Normal PMI, no JVD. No pulse deficits. Respiratory: Lungs have equal breath sounds bilaterally, clear to auscultation and percussion. No rales, rhonchi or wheezes noted. No increased work of breathing, no retractions or nasal flaring. Abdomen/GI: Soft, non-tender, with normal bowel sounds. No distension or tympany. No guarding or rebound. No evidence of tenderness throughout. Back: No spinal tenderness. No costovertebral tenderness. Full range of motion. Skin: Warm, dry with normal turgor. Normal color with no rashes, no lesions, and no evidence of cellulitis. MS/ Extremity: Pulses equal, no cyanosis. Neurovascular intact. Full, normal range of motion. Neuro: Awake and alert, GCS 15, oriented to person, place, time, and situation. Cranial nerves II-XII grossly intact. Motor strength 5/5 in all extremities. Sensory grossly intact. Cerebellar exam normal. Normal gait. Psych: Awake, alert, with orientation to person, place and time. Behavior, mood, and affect are within normal limits. 18:55 Musculoskeletal/extremity: ROM: no acute changes, intact in all extremities, Circulation is intact in all extremities. Pulses: Sensation intact. Compartment Syndrome exam of affected extremity: is normal. DVT Exam: no pain, no swelling, no tenderness, negative Homans' sign noted on exam, no appreciated bluish discoloration, no erythema, no increased warmth, left upper arm AV Fistula. 19:00 ECG was reviewed by the Attending Physician. [facility] Vital Signs: 17:48 BP 137 / 69; Pulse 95; Resp 18; Temp 97.0; Pulse Ox 100% ; Weight 81.65 kg; Height 5 ll1 ft. 0 in. (152.40 cm); Pain 0/10; 18:27 BP 137 / 69; Pulse 95; Resp 18; Pulse Ox 100% ; ch5 19:54 BP 161 / 80; Pulse 87; Resp 20; Pulse Ox 93% on R/A; Pain 0/10; ms4 22:03 BP 143 / 74; Pulse 82; Resp 18; Pulse Ox 95% on R/A; Pain 0/10; ms4 17:48 Body Mass Index 35.15 (81.65 kg, 152.40 cm) ll1 MDM: 18:00 Patient medically screened. [facility] 18:58 Differential diagnosis: CVA, TIA, metabolic disorder. Data reviewed: vital signs, [facility] nurses notes, lab test result(s), EKG, radiologic studies, plain films. Data interpreted: quality assurance monitor final: rate is 95 beats/min, rhythm is regular, Pulse oximetry: on room air is 10 %. Test interpretation: by ED physician or midlevel provider: ECG, plain radiologic studies. Counseling: I had a detailed discussion with the patient and/or guardian regarding: the historical points, exam findings, and any diagnostic results supporting the discharge/admit diagnosis, lab results, radiology results, the need for outpatient follow up, for definitive care, an distance education coordinator. 04/20 18: Order name: Basic Metabolic Panel [facility] 04/20 18: Order name: CBC with Diff [facility] 04/20 18: Order name: LFT's; Complete Time: 19:29 [facility] 04/20 18: Order name: Magnesium; Complete Time: 19:29 [facility] 04/20 18: Order name: NT PRO-BNP; Complete Time: 19:29 [facility] 04/20 18:01 Order name: PT-INR; Complete Time: 18:55 [facility] 04/20 18:01 Order name: Troponin (emerg Dept Use Only); Complete Time: 19:29 [facility] 04/20 18:01 Order name: XRAY Chest (1 view); Complete Time: 18:55 [facility] 04/20 18:01 Order name: CT Head Brain wo Cont; Complete Time: 19:14 [facility] 04/20 18:02 Order name: Basic Metabolic Panel; Complete Time: 19:29 [facility] 04/20 18:02 Order name: CBC with Automated Diff; Complete Time: 18:55 [facility] 04/20 19:09 Order name: COVID-19 (Coronavirus) Document "Date of Onset" if Symptomatic tw5 04/20 21:20 Order name: COVID-19/FLU A+B/RSV [facility] 04/20 18:01 Order name: EKG; Complete Time: 18:02 [facility] 04/20 18:01 Order name: Cardiac monitoring; Complete Time: 18:21 [facility] 04/20 18:01 Order name: EKG - Nurse/Tech; Complete Time: 18:54 [facility] 04/20 18:01 Order name: IV Saline Lock; Complete Time: 18:21 [facility] 04/20 18:01 Order name: Labs collected and sent; Complete Time: 18:21 [facility] 04/20 18:01 Order name: O2 Per Protocol; Complete Time: 18:21 [facility] 04/20 18:01 Order name: O2 Sat Monitoring; Complete Time: 18: [facility] 04/20 19:56 Order name: CONS Physician Consult EDMS EC:00 Rate is 89 beats/min. Rhythm is regular. QRS [place] is Normal. IA interval is normal. QRS meredith interval is normal. QT interval is prolonged at 408 msec. No Q waves. T waves are Normal. No ST changes noted. Clinical impression: NSR w/ Non-specific ST/T Changes and No evidence of ischemia. Interpreted by me. Reviewed by me. Administered Medications: 19:02 Discontinued: NS 0.9% 1000 ml IV at 75 ml/hr continuous meredith 18:53 Drug: NS 0.9% 1000 ml Route: IV; Rate: 75 ml/hr; Site: right antecubital; ch5 Disposition Summary: 04/20/21 19:04 Hospitalization Ordered Hospitalization Status: Observation [facility] Provider: Ruben Blue cha Location: Telemetry/MedSurg (observation) meredith Condition: Fair meredith Problem: new meredith Symptoms: have improved meredith Bed/Room Type: Standard [facility] Room Assignment: 221(04/20/21 22:01) em Diagnosis - Dyspnea meredith - End stage renal disease - on HD T,TH, SAT meredith - Syncope Near meredith - Essential (primary) hypertension meredith - Systolic (congestive) heart failure meredith Discharge Instructions: - Discharge Summary Sheet 5 Forms: - Medication Reconciliation Form meredith - SBAR form 5 Signatures: Dispatcher [employer] Aleksander Butler MD MD cha Munoz, Edgar RN RN Billy Magana RN RN [facility] Silas Arellano RN RN 5 Corrections: (The following items were deleted from the chart) 22:01 19:04 meredith em
--- NOTE | 2021-04-20 19:05 | ER ---
Nurse's Notes [facility] Name: Puja Le Age: 41 yrs Sex: Female : 1980 Arrival Date: 04/20/2021 Time: 17:30 Bed 5 Private MD: Diagnosis: Dyspnea;End stage renal disease-on HD T,TH, SAT;Syncope Near;Essential (primary) hypertension;Systolic (congestive) heart failure Presentation: 04/20 17:48 Chief complaint: Patient states: SOB, face tingling, near syncope feeling for 3 hours. ll1 States smelling rubbing alcohol helps. "I think I'm dying" repeated three times during triage. Coronavirus screen: Vaccine status: Patient reports being unvaccinated. Client denies travel out of the [place] in the last 14 days. At this time, the client does not indicate any symptoms associated with coronavirus-19. Ebola Screen: Patient denies travel to an Ebola-affected area in the 21 days before illness onset. Initial Sepsis Screen: Does the patient meet any 2 criteria? HR > 90 bpm. No. Patient's initial sepsis screen is negative. Does the patient have a suspected source of infection? No. Patient's initial sepsis screen is negative. Risk Assessment: Do you want to hurt yourself or someone else? Patient reports no desire to harm self or others. Onset of symptoms was April 20, 2021. 17:48 Method Of Arrival: Wheelchair ll1 17:48 Acuity: KATHRYN 3 ll1 Historical: - Allergies: 17:50 Zosyn; ll1 - PMHx: 17:50 Dialysis; Hypertension; Renal Disease; ll1 - Immunization history:: Client reports having NOT received the Covid vaccine. - Social history:: Smoking status: Patient denies any tobacco usage or history of. - Family history:: not pertinent. Screenin:25 Abuse screen: Denies threats or abuse. Denies injuries from another. Nutritional ch5 screening: No deficits noted. Tuberculosis screening: No symptoms or risk factors identified. Fall Risk None identified. Assessment: 18:25 Reassessment: Pt states that she has moments of tingling to face and "feeling Weird" ch5 and "feeling normal". Pain: Complains of pain in back due to shingles. 22:12 Reassessment: report given to floor nurse. patient to be transported to [facility]. ms4 Vital Signs: 17:48 BP 137 / 69; Pulse 95; Resp 18; Temp 97.0; Pulse Ox 100% ; Weight 81.65 kg; Height 5 ll1 ft. 0 in. (152.40 cm); Pain 0/10; 18:27 BP 137 / 69; Pulse 95; Resp 18; Pulse Ox 100% ; ch5 19:54 BP 161 / 80; Pulse 87; Resp 20; Pulse Ox 93% on R/A; Pain 0/10; ms4 22:03 BP 143 / 74; Pulse 82; Resp 18; Pulse Ox 95% on R/A; Pain 0/10; ms4 17:48 Body Mass Index 35.15 (81.65 kg, 152.40 cm) ll1 ED Course: 17:30 Patient arrived in ED. as 17:50 Triage completed. ll1 17:50 Arm band placed on Patient placed in an exam room, on a stretcher. ll1 17:57 Silas Arellano RN is Primary Nurse. ch5 18:00 Aleksander Ramírez MD is Attending Physician. meredith 18:20 Basic Metabolic Panel Sent. ch5 18:20 CBC with Automated Diff Sent. ch5 18:20 Basic Metabolic Panel Sent. ch5 18:20 CBC with Diff Sent. ch5 18:21 Troponin (emerg Dept Use Only) Sent. ch5 18:21 PT-INR Sent. ch5 18:21 NT PRO-BNP Sent. ch5 18:21 Magnesium Sent. ch5 18:21 LFT's Sent. ch5 18:25 Patient has correct armband on for positive identification. Bed in low position. Call ch5 light in reach. Side rails up X2. 18:25 No provider procedures requiring assistance completed. Inserted saline lock: 22 gauge ch5 in right forearm, using aseptic technique. 18:40 XRAY Chest (1 view) In Process Unspecified. EDMS 18:54 LFT's Sent. ch5 18:54 Magnesium Sent. ch5 18:54 NT PRO-BNP Sent. ch5 18:54 Troponin (emerg Dept Use Only) Sent. ch5 19:00 CT Head Brain wo Cont Sent. ch5 19:01 CT Head Brain wo Cont In Process Unspecified. EDMS 19:02 Ruben Blue MD is Hospitalizing Provider. meredith 20:04 COVID-19 (Coronavirus) Document "Date of Onset" if Symptomatic Sent. ms4 20:49 Primary Nurse role handed off by Silas Arellano RN tt3 Administered Medications: 19:02 Discontinued: NS 0.9% 1000 ml IV at 75 ml/hr continuous meredith 18:53 Drug: NS 0.9% 1000 ml Route: IV; Rate: 75 ml/hr; Site: right antecubital; ch5 Outcome: 19:04 Decision to Hospitalize by Provider. meredith 22:35 Patient left the ED. ms4 Signatures: Dispatcher [employer] EDMS Aleksander Ramírez MD MD cha Martinez, Amelia as Lewis, Lynsay, RN RN ll1 Fredy Sanz tt3 Grace López RN RN ms4 Silas Arellano RN RN ch5 Corrections: (The following items were deleted from the chart) 17:57 17:48 Chief complaint: Patient states: SOB, face tingling, near syncope feeling for 3 ll1 hours. States smelling rubbing alcohol helps. ll1
--- NOTE | 2021-04-20 19:11 | RAD REPORT ---
EXAM DESCRIPTION: CT - Head Brain Wo Cont - 04/20/2021 7:01 pm CLINICAL HISTORY: Dizziness;Headache;Numbness Headache, drowsiness COMPARISON: Head Brain Wo Cont dated 09/13/2017 TECHNIQUE: All CT scans are performed using dose optimization technique as appropriate and may inclu de automated exposure control or mA/KV adjustment according to patient size. FINDINGS: No intracranial hemorrhage, hydrocephalus or extra-axial fluid collection.No areas of brai n edema or evidence of midline shift. The paranasal sinuses and mastoids are clear. The calvarium is intact. IMPRESSION: No acute intracranial abnormality.
[2021-04-20 19:21] LABS: BUN Blood Urea Nitrogen 38 mg/dL (7-18); Bicarbonate 28 mmol/L (21-32); Glucose Level 140 mg/dL (74-106); Potassium 4.1 mmol/L (3.5-5.1); Sodium Level 142 mmol/L (136-145)
[2021-04-20 19:22] LABS: ALT/SGPT 33 U/L (12-78); AST/SGOT 72 U/L (15-37); Albumin 2.4 g/dL (3.4-5.0); Alkaline Phosphatase 415 U/L (45-117); Bilirubin Direct 0.7 mg/dL (0-0.2); Bilirubin Total 1.1 mg/dL (0.2-1.0); Protein, Total 7.1 g/dL (6.4-8.2)
[2021-04-20 19:23] LABS: Magnesium 2.1 mg/dL (1.8-2.4); NT PRO-BNP 42310 pg/mL (<125); Troponin (Emerg Dept Use Only) < 0.02 ng/mL (0.0-0.045)
[2021-04-20 21:19] LABS: SARS-COV-2 RT PCR NEGATIVE (NEGATIVE)
--- NOTE | 2021-04-20 22:01 | P.HP ---
Certification for Inpatient Patient admitted to: Observation With expected LOS: <2 Midnights Patient will require the following post-hospital care: None Practitioner: I am a practitioner with admitting privileges, knowledge of patient current condition, hospital course, and medical plan of care. Services: Services provided to patient in accordance with Admission requirements found in Title 42 Section 412.3 of the Code of Federal Regulations Patient History Date of Service: 04/20/21 Reason for admission: near syncope History of Present Illness: Ms. Le is a 41 yo F with CHF, HTN, ESRD on HD TTS who presents with one day of dizziness. Today at 5pm she began to feel chills, dizzy, weak, and like she was going to pass out. She also reports SOB. She said her legs felt weak and shaky when she tried to walk. She also felt numbness and tingling in her entire face. She splashed cold water on her face which helped her symptoms. She has been carrying rubbing alcohol to sniff to relieve her symptoms. She was diagnosed with shingles yesterday and started on 1g TID of valacyclovir. Renal dose should be 500mg q24hr. She has never had symptoms like this before. Allergies piperacillin [From Zosyn] Allergy (Verified 08/27/19 09:45) Unknown tazobactam [From Zosyn] Allergy (Verified 08/27/19 09:45) Unknown Home Medications: Furosemide [Lasix] 60 mg PO BID 12/05/18 Nifedipine [Procardia Xl] 30 mg PO BID 12/05/18 Albuterol Sulfate [Proair Hfa] 2 puff IH TID PRN #1 hfa.aer.ad 08/29/19 Guaifenesin [Mucinex] 600 mg PO BID PRN #15 tab.er.12h 08/29/19 levoFLOXacin [Levaquin] 250 mg PO SEECOM #2 tab 08/29/19 ramipriL [Altace*] 10 mg PO BEDTIME #30 cap 08/29/19 - Past Medical/Surgical History Diabetic: Yes -: ESRD on Hemodialysis -: HTN -: CAD -: Diabetes mellitus -: C Section x2 -: Former peritoneal dialysis -: cholecystectomy Psychosocial/ Personal History: The patient is . - Social History Smoking Status: Never smoker Alcohol use: No CD- Drugs: No Caffeine use: No Place of Residence: Home Review of Systems 10-point ROS is otherwise unremarkable General: Chills, Weakness, Malaise, As per HPI Eyes: Unremarkable ENT: Unremarkable Respiratory: Shortness of Breath, As per HPI Cardiovascular: Light Headedness, As per HPI Gastrointestinal: Unremarkable Genitourinary: Unremarkable Musculoskeletal: Unremarkable Integumentary: Unremarkable Neurological: Weakness, Numbness, As per HPI Lymphatics: Unremarkable Physical Examination - Physical Exam General: Alert, In no apparent distress HEENT: Atraumatic, PERRLA, Mucous membr. moist/pink, EOMI, Sclerae nonicteric Neck: Supple, 2+ carotid pulse no bruit, No LAD, Without JVD or thyroid abnormality Respiratory: Clear to auscultation bilaterally, Normal air movement Cardiovascular: Regular rate/rhythm, Normal S1 S2, Edema Gastrointestinal: Normal bowel sounds, No tenderness Musculoskeletal: No tenderness Integumentary: Rash(es) Neurological: Normal gait, Normal speech, Normal strength at 5/5 x4 extr, Normal tone, Normal affect Lymphatics: No axilla or inguinal lymphadenopathy Urinary: Dialysis catheter - Studies Laboratory Data (last 24 hrs) 04/20/21 18:17: PT 13.0 H, INR 1.13 04/20/21 18:17: WBC 8.30, Hgb 14.4, Hct 42.7, Plt Count 111 L 04/20/21 18:17: Sodium 142, Potassium 4.1, BUN 38 H, Creatinine 5.82 H*, Glucose 140 H, Magnesium 2.1, Total Bilirubin 1.1 H, AST 72 H, ALT 33, Alkaline Phosphatase 415 H Assessment and Plan - Problems (Diagnosis) (1) CHF (congestive heart failure) Current Visit: Yes Status: Chronic Qualifiers: Heart failure type: unspecified Heart failure chronicity: chronic Qualified Code(s): I50.9 - Heart failure, unspecified (2) Shingles Current Visit: Yes Status: Acute Qualifiers: Herpes zoster complications: without complications Qualified Code(s): B02.9 - Zoster without complications (3) End stage renal disease Onset Date: 09/14/17 Current Visit: No Status: Chronic (4) Hypertension Onset Date: 09/14/17 Current Visit: No Status: Chronic Qualifiers: Hypertension type: primary hypertension Qualified Code(s): I10 - Essential (primary) hypertension - Plan nephrology consulted, hold valacylovir, will need to renally dose at discharge, recheck BMP in the AM on tele, orthostatic VS, ECHO pending, trend troponins reconcile and continue home medications hydralazine PRN for BP spikes pain management as needed DVT ppx Discharge Plan: Home Plan to discharge in: 24 Hours - Advance Directives Does patient have a Living Will: No Does patient have a Durable POA for Healthcare: No - Code Status/Comfort Care Code Status Assessed: Yes (full code ) Critical Care: No Time Spent Managing Pts Care (In Minutes): 70
[2021-04-20] MEDS ORDERED: HYDRALAZINE HCL 20 MG/ML VIAL IV PRN (22:33)
[2021-04-20] MEDS ORDERED: ACETAMINOPHEN 500 MG TAB PO PRN (22:33)
[2021-04-20] MEDS ORDERED: TRAMADOL HCL 50 MG TAB PO PRN (22:33)
[2021-04-20] MEDS ORDERED: ONDANSETRON 4 MG/2 ML VIAL IV PRN (22:33)
[2021-04-20 23:13] VITALS: BMI 37.8
[2021-04-21] MEDS ORDERED: DIPHENHYDRAMINE 25 MG TAB/CAP PO ONE (00:17)
[2021-04-21] MEDS ORDERED: LORAZEPAM 0.5 MG TABLET PO ONE (02:54)
[2021-04-21 03:08] LABS: Absolute Lymphocytes (CBC) 0.7 K/uL (0.7-4.9); Basophils % 0.8 % (0-1.3); Hematocrit 41.3 % (36.0-45.0); Lymphocytes % 8.2 % (15.3-44.8); MPV 9.1 fL (7.6-11.3); RBC Red Blood Cell Count 4.54 M/uL (3.86-4.86)
[2021-04-21 03:31] LABS: ALT/SGPT 29 U/L (12-78); AST/SGOT 56 U/L (15-37); Albumin 2.3 g/dL (3.4-5.0); Alkaline Phosphatase 373 U/L (45-117); BUN Blood Urea Nitrogen 44 mg/dL (7-18); Bicarbonate 28 mmol/L (21-32); Bilirubin Total 1.1 mg/dL (0.2-1.0); Glucose Level 104 mg/dL (74-106); HDL Cholesterol 54 mg/dL (40-60); LDL Cholesterol, Calculated 90 (<130); Magnesium 2.2 mg/dL (1.8-2.4); Phosphorus 6.6 mg/dL (2.5-4.9); Potassium 4.8 mmol/L (3.5-5.1); Protein, Total 6.7 g/dL (6.4-8.2); Sodium Level 141 mmol/L (136-145); Troponin I < 0.02 ng/mL (0.0-0.045)
[2021-04-21 06:27] VITALS: O2SAT 93
--- NOTE | 2021-04-21 10:10 | RAD REPORT ---
EXAM DESCRIPTION: US Duplex Right Lower Extremity Veins CLINICAL HISTORY: The patient is 41 years old and is Female; swelling Extremity Venous [employer] TECHNIQUE: Real-time duplex ultrasound scan of the right lower extremity veins integrating B-mode tw o-dimensional vascular structure, Doppler spectral analysis, color flow Doppler imaging and compressi on. COMPARISON: No relevant prior studies available. FINDINGS: Deep veins: Unremarkable. No DVT in the visualized common femoral, femoral, or poplite al veins. The veins demonstrate normal color flow, are normally compressible where visualized, with normal phasic flow and/or augmentation response. Soft tissues: No acute findings. IMPRESSION: No evidence of DVT in the right lower extremity veins. Electronically signed by: Zaid Reynolds MD 04/20/2021 11:51 PM CDT Due to temporary technical issues with the PACS/Fluency reporting system, reports are being signed by the in house radiologist without review as a courtesy to ensure prompt reporting. The interpreting r adiologist is fully responsible for the content of the report.
--- NOTE | 2021-04-21 10:38 | P.CNS ---
Date of Consult: 04/21/21 Reason for Consult: ESRD Requesting Physician: Janusz Solano Chief Complaint: near syncope History of Present Illness: Ms. Le is a 41 yo F with CHF, HTN, ESRD on HD TTS who presents with one day of dizziness. Today at 5pm she began to feel chills, dizzy, weak, and like she was going to pass out. She also reports SOB. She said her legs felt weak and shaky when she tried to walk. She also felt numbness and tingling in her entire face. She splashed cold water on her face which helped her symptoms. She has been carrying rubbing alcohol to sniff to relieve her symptoms. She was diagnosed with shingles yesterday and started on 1g TID of valacyclovir. Renal dose should be 500mg q24hr. She has never had symptoms like this before. 18:55 This 41 yrs old Female presents to ER via Wheelchair with complaints of meredith Numbness Of Face, Near Syncope. 18:55 The patient's problem is reported as weakness, that is generalized. Onset: The meredith symptoms/episode began/occurred today. Duration: This was a single incident. Context: the episode(s) was witnessed, by family, occurred at home. The symptoms are alleviated by nothing. The symptoms are aggravated by nothing. Associated signs and symptoms: Pertinent positives: weakness. Severity of symptoms: At their worst the symptoms were mild in the emergency department the symptoms are unchanged. Patient's baseline: Neuro: alert and fully oriented. The patient has not experienced similar symptoms in the past. Allergies piperacillin [From Zosyn] Allergy (Verified 04/20/21 23:44) Unknown tazobactam [From Zosyn] Allergy (Verified 04/20/21 23:44) Unknown Home medications list reviewed: Yes Home Medications: Nifedipine [Procardia Xl] 30 mg PO BID 12/05/18 - Past Medical/Surgical History Diabetic: No -: ESRD on Hemodialysis -: HTN -: CAD -: Diabetes mellitus -: C Section x2 -: Former peritoneal dialysis -: cholecystectomy Psychosocial/ Personal History: The patient is . - Family History Mother Medical History: Diabetes Father Medical History: Heart disease - Social History Smoking Status: Unknown if ever smoked Alcohol use: No CD- Drugs: No Caffeine use: No Place of Residence: Home Review of Systems General: Weakness, Malaise Physical Examination Temp Pulse Resp BP Pulse Ox 97.5 F 90 16 197/95 H 94 04/21/21 08:00 04/21/21 08:00 04/21/21 08:00 04/21/21 08:00 04/21/21 08:00 General: Oriented x3, Oriented x1 HEENT: Atraumatic Neck: Supple Respiratory: Clear to auscultation bilaterally Cardiovascular: Edema Gastrointestinal: Soft and benign, Non-distended Musculoskeletal: No clubbing, No contractures Integumentary: No rashes, No cyanosis Neurological: Normal speech Laboratory Data (last 24 hrs) 04/20/21 18:17: PT 13.0 H, INR 1.13 04/20/21 18:17: WBC 8.30, Hgb 14.4, Hct 42.7, Plt Count 111 L 04/20/21 18:17: Sodium 142, Potassium 4.1, BUN 38 H, Creatinine 5.82 H*, Glucose 140 H, Magnesium 2.1, Total Bilirubin 1.1 H, AST 72 H, ALT 33, Alkaline Phosphatase 415 H Imagings Data: EXAM DESCRIPTION: RAD - Chest Single View - 04/20/2021 6:39 pm CLINICAL HISTORY: COUGH Chest pain. COMPARISON: Chest Pa And Lat (2 Views) dated 08/29/2019; Chest Pa And Lat (2 Views) dated 08/28/2019; Chest Single View dated 08/27/2019; Chest Pa And Lat (2 Views) dated 08/23/2019 FINDINGS: Portable technique limits examination quality. Mild to moderate pulmonary edema is seen. The heart is significantly enlarged. No displaced fractures.Aortic atherosclerosis. IMPRESSION: Mild to moderate CHF. Conclusions/Impression: ESRD on HD -HD TIW HTN with CKD/ CHF -Continue Nifedipine Diastolic CHF, chronic -HD with UF -Low sodium diet DM II with CKD -RISS Anemia in CKD -Retacrit PRN CKD MBD -Start Vitamin D -Start Renvela Thank you kindly for the consultation. Case reviewed with Dr. Solano
--- NOTE | 2021-04-21 10:48 | P.DS ---
Admission Date: 04/20/21 Discharge Date: 04/21/21 Primary Care Provider: Dr. Thakur Disposition: ROUTINE DISCHARGE Discharge Condition: GOOD Reason for Admission: near syncope Consultations: Nephrology-Dr. Thakur Procedures: COVID: Negative CT Head: COMPARISON: Head Brain Wo Cont dated 09/13/2017 TECHNIQUE: All CT scans are performed using dose optimization technique as appropriate and may include automated exposure control or mA/KV adjustment according to patient size. FINDINGS: No intracranial hemorrhage, hydrocephalus or extra-axial fluid collection.No areas of brain edema or evidence of midline shift. The paranasal sinuses and mastoids are clear. The calvarium is intact. IMPRESSION: No acute intracranial abnormality. Venous doppler: COMPARISON: No relevant prior studies available. FINDINGS: Deep veins: Unremarkable. No DVT in the visualized common femoral, femoral, or popliteal veins. The veins demonstrate normal color flow, are normally compressible where visualized, with normal phasic flow and/or augmentation response. Soft tissues: No acute findings. IMPRESSION: No evidence of DVT in the right lower extremity veins. CXR: COMPARISON: Chest Pa And Lat (2 Views) dated 08/29/2019; Chest Pa And Lat (2 Views) dated 08/28/2019; Chest Single View dated 08/27/2019; Chest Pa And Lat (2 Views) dated 08/23/2019 FINDINGS: Portable technique limits examination quality. Mild to moderate pulmonary edema is seen. The heart is significantly enlarged. No displaced fractures.Aortic atherosclerosis. IMPRESSION: Mild to moderate CHF. Medical Problem List: Dizziness with presyncope likely medication related Hypertension End-stage renal disease on hemodialysis Chronic diastolic CHF Shingles Brief History of Present Illness: 41-year-old female with history of CHF, hypertension, end-stage renal disease on hemodialysis. Patient presented with 1 day history of dizziness. She reported feeling dizzy, weak with near syncope. She also reported some shortness of breath. She also felt weakness to her lower extremities. Patient had recently been diagnosed with shingles. She had been given acyclovir 1 g 3 times a day. She presented to the ER. She was admitted for further evaluation and treatment. Hospital Course: Patient presented with dizziness and near syncope. This may be related to side effects of valacyclovir. Patient recently diagnosed with shingles. Patient was observed and monitor closely. Cardiac enzymes unremarkable. CT head unremarkable. Venous Doppler of the lower extremities unremarkable. Patient with underlying history of chronic diastolic CHF, end-stage renal disease on hemodialysis and hypertension. Patient was seen and evaluated by nephrology as well. Patient did well in the course of her stay. No further intervention required. At discharge patient will continue with the 1500 cc/day fluid restriction and low-salt diet. She is to monitor her weight daily. If her weight increases by more than 5 pounds she is to contact nephrology for further recommendation. She will continue with her blood pressure medication nifedipine 30 mg 1 pill twice daily. Recommend to monitor blood pressures daily. Recommend to maintain blood pressure less than 130/80. If blood pressures remain above 150/90 she is to contact nephrology for further recommendations. Medication adjustment may be required. Patient will continue with dialysis every Wednesday, and Wednesday. Further adjustments in dialysis can be done by nephrology. Recommend follow-up with nephrology within 1 week to follow-up his hospitalization. Patient with shingles. No need for antiviral medication at this time since it has been has been more than 48 hours. This can be monitored closely. Patient may take Tylenol as needed for pain. Recommend follow-up with PCP within 1 week to [place] hospitalization. Vital Signs/Physical Exam: Temp Pulse Resp BP Pulse Ox 97.5 F 90 16 197/95 H 94 04/21/21 08:00 04/21/21 08:00 04/21/21 08:00 04/21/21 08:00 04/21/21 08:00 General: Alert, In no apparent distress, Oriented x3, Cooperative HEENT: Atraumatic Neck: Supple Respiratory: Clear to auscultation bilaterally, Normal air movement Cardiovascular: Normal pulses, Regular rate/rhythm Gastrointestinal: Normal bowel sounds Musculoskeletal: No warmth Integumentary: Other (Patch of blisters to the right back region) Neurological: Normal speech, Normal strength at 5/5 x4 extr, Normal tone, Normal affect Laboratory Data at Discharge: WBC 8.00 K/uL (4.3-10.9) 04/21/21 02:58 Hgb 13.9 g/dL (12.0-15.0) 04/21/21 02:58 Hct 41.3 % (36.0-45.0) 04/21/21 02:58 Plt Count 115 K/uL (152-406) L 04/21/21 02:58 PT 13.0 SECONDS (9.5-12.5) H 04/20/21 18:17 INR 1.13 04/20/21 18:17 Sodium 141 mmol/L (136-145) 04/21/21 02:58 Potassium 4.8 mmol/L (3.5-5.1) 04/21/21 02:58 BUN 44 mg/dL (7-18) H 04/21/21 02:58 Creatinine 6.39 mg/dL (0.55-1.3) H* 04/21/21 02:58 Glucose 104 mg/dL (74-106) 04/21/21 02:58 Phosphorus 6.6 mg/dL (2.5-4.9) H 04/21/21 02:58 Magnesium 2.2 mg/dL (1.8-2.4) 04/21/21 02:58 Total Bilirubin 1.1 mg/dL (0.2-1.0) H 04/21/21 02:58 AST 56 U/L (15-37) H 04/21/21 02:58 ALT 29 U/L (12-78) 04/21/21 02:58 Alkaline Phosphatase 373 U/L (45-117) H 04/21/21 02:58 Troponin I < 0.02 ng/mL (0.0-0.045) 04/21/21 02:58 Triglycerides 108 mg/dL (<150) 04/21/21 02:58 Cholesterol 166 mg/dL (<200) 04/21/21 02:58 HDL Cholesterol 54 mg/dL (40-60) 04/21/21 02:58 Cholesterol/HDL Ratio 3.07 04/21/21 02:58 Home Medications: Nifedipine [Procardia Xl] 30 mg PO BID 12/05/18 Physician Discharge Instructions: Patient presented with dizziness and near syncope. This may be related to side effects of valacyclovir. Patient recently diagnosed with shingles. Patient was observed and monitor closely. Cardiac enzymes unremarkable. CT head unremarkable. Venous Doppler of the lower extremities unremarkable. Patient with underlying history of chronic diastolic CHF, end-stage renal disease on hemodialysis and hypertension. Patient was seen and evaluated by nephrology as well. Patient did well in the course of her stay. No further intervention required. At discharge patient will continue with the 1500 cc/day fluid restriction and low-salt diet. She is to monitor her weight daily. If her weight increases by more than 5 pounds she is to contact nephrology for further recommendation. She will continue with her blood pressure medication nifedipine 30 mg 1 pill twice daily. Recommend to monitor blood pressures daily. Recommend to maintain blood pressure less than 130/80. If blood pressures remain above 150/90 she is to contact nephrology for further recommendations. Medication adjustment may be required. Patient will continue with dialysis every Wednesday, and Wednesday. Further adjustments in dialysis can be done by nephrology. Recommend follow-up with nephrology within 1 week to follow-up his hospitalization. Patient with shingles. No need for antiviral medication at this time since it has been has been more than 48 hours. This can be monitored closely. Patient may take Tylenol as needed for pain. Recommend follow-up with PCP within 1 week to [place] hospitalization. Diet: Renal (1500 cc/day fluid restriction) Activity: Ad ana maria Followup: NONE,NONE [Primary Care Provider] - Time spent managing pt's care (in minutes): 55
[2021-04-21] MEDS ORDERED: NIFEDIPINE XL 30 MG TABLET PO SCH ×2 (12:04→21:00)
[2021-04-21] MEDS ORDERED: NIFEdipine 10 MG CAP PO ONE (12:05)
[2021-04-21 12:27] VITALS: BP 199/91
[2021-04-21 12:47] VITALS: TEMP 97.4
--- NOTE | 2021-04-21 15:09 | ECHO ---
HEIGHT: 5 ft 0 in WEIGHT: 193 lb 14.4 oz DATE OF STUDY: 04/21/[address]: Chacorta [place] 2-DIMENSIONAL: YES M.MODE: YES DOPPLER: YES COLOR FLOW: YES TDS: NO PORTABLE: NO DEFINITY: NO BUBBLE STUDY: NO DIAGNOSIS: CONGESTIVE HEART FAILURE CARDIAC HISTORY: CATHERIZATION: SURGERY: PROSTHETIC VALVE: PACEMAKER: MEASUREMENTS (cm) DIASTOLIC (NORMALS) SYSTOLIC (NORMALS) IVSd 1.4 (0.6-1.2) LA Diam 4.5 (1.9-4.0) LVEF 62% LVIDd 4.8 (3.5-5.7) LVIDs 3.2 (2.0-3.5) %FS 34% LVPWd 1.3 (0.6-1.2) Ao Diam 2.9 (2.0-3.7) 2 DIMENSIONAL ASSESSMENT: RIGHT ATRIUM: NORMAL LEFT ATRIUM: NORMAL RIGHT VENTRICLE: NORMAL LEFT VENTRICLE: NORMAL TRICUSPID VALVE: MITRAL VALVE: MITRAL ANNULAR CALCIFICATION PULMONIC VALVE: NORMAL AORTIC VALVE: NORMAL PERICARDIAL EFFUSION: NONE AORTIC ROOT: NORMAL LEFT VENTRICULAR WALL MOTION: NORMAL DOPPLER/COLOR FLOW: SEE BELOW. COMMENTS: NORMAL LEFT VENTRICULAR EJECTION FRACTION 60-65% WITH NORMAL WALL MOTION. SEVERE TRICUSPID REGURGITATION WITH STRUCTURAL ABNORMALITY INVOLVING THE TRICUSPID VALVE THAT COULD BE CALCIFICATION. RECOMMEND CARDIAC MRI TO EVALUATE. SEVERE PULMONARY HYPERTENSION WITH RIGHT VENTRICULAR SYSTOLIC PRESSURE >60 mmHg. TECHNOLOGIST: Dave GOLDBERG
== END 2021-04-21 13:48 | disposition home or self-care (01) ==
LOC: ER 17:30 → ERHOLD 20:08 → 2ND 22:31
PROVIDERS: ADMIT Family Medicine; ATTEND Family Medicine
DX: R55 Syncope and collapse (principal); R42 Dizziness and giddiness; I13.2 Hypertensive heart and chronic kidney disease with heart failure and with stage 5 chronic kidney disease, or end stage renal disease; E11.22 Type 2 diabetes mellitus with diabetic chronic kidney disease; N18.6 End stage renal disease; I50.32 Chronic diastolic (congestive) heart failure; Z99.2 Dependence on renal dialysis; B02.9 Zoster without complications; I25.10 Atherosclerotic heart disease of native coronary artery without angina pectoris; Z88.0 Allergy status to penicillin; Z88.1 Allergy status to other antibiotic agents; Z90.49 Acquired absence of other specified parts of digestive tract; Z20.822 Contact with and (suspected) exposure to COVID-19
CPT/HCPCS: 93005; 93306; 85025 ×2; 80048; 36415 ×2; 83735 ×2; 84100; 85610; 80061; 80076; 84443; 84484 ×2; 84439; 80053; 83880; 0241U; 70450; 71045; 93971; 94760 ×2; 99284; J0360; J7030; G0378 ×2

== ENCOUNTER 2021-10-03 14:42 | Emergency (ER) | payer OTHER ==
--- OUTSIDE RECORDS SUMMARY | 2021-10-03 14:45 | XMS REPORT | Continuity of Care Document ---
:1980 Author Organization [facility] t Address [address] [place] [address] Care Team Providers Name Role Phone PCP, DOES NOT HAVE A Primary Care Physician Unavailable JUNE WAGONER Attending Clinician Unavailable DARON, K.HKwame Attending Clinician Unavailable Daron ENGLISH, K.H. Attending Clinician MIRI Attending Clinician Unavailable ABBI Attending Clinician Unavailable CHAPIN Attending Clinician Unavailable MIKO LUO Attending Clinician Unavailable Jeff GLEZ Attending Clinician Unavailable Kwame RO Attending Clinician Unavailable JUNE WAGONER Admitting Clinician Unavailable MIRI Admitting Clinician Unavailable MAYELIN Admitting Clinician Unavailable CHAPIN Admitting Clinician Unavailable Payers Payer Name Policy Type Policy Number Effective Date Expiration Date S adithya MEDICARE PART A [id number] 2012 \T\ B 00:00:00 Problems Condition Condition Condition Status Onset Resolution Last Treating Co mments Source Name Details Category Date Date Treatment Clinician Date GIB GIB Disease Active 2020-06 [facility] (gastroint (gastroint 1-02 it y of estinal estinal 00:00: [place] bleeding) bleeding) 00 Medi nikhil Branch Right Right Disease Active 2020-06 Univers atrial atrial 0-29 ity of mass mass 00:00: [place] 00 Medical Branch Pulmonary Pulmonary Disease Active 2020-06 Uni vers hypertensi hypertensi 0-29 it y of on on 00:00: [place] 00 Medical Branch Elevated Elevated Disease Active 2020-06 Unive rs brain brain 0-29 ity of natriureti natriureti [place] c peptide c peptide 00 Medi nikhil (BNP) (BNP) Branch level level Essential Essential Disease Active 2020-06 Uni vers hypertensi hypertensi 0-28 it y of on on 00:00: [place] 00 Medical Branch ESRD (end ESRD (end Disease Active 2020-06 Uni vers stage stage 0-28 ity of renal renal 00:00: [place] disease) disease) 00 Medica l on on Branch dialysis dialysis Gastrointe Gastrointe Disease Active 2020-06 U nivers stinal stinal 0-27 [place] hemorrhage [place] 00 [facility] melena melena Branch Obesity Obesity Disease Active 2020-06 Univers (BMI (BMI 0-27 ity of 30-39.9) 30-39.9) 00:00: [place] 00 Medical Branch Allergies, Adverse Reactions, Alerts Allergy Allergy Status Severity Reaction(s) Onset Inactive Treating Comm ents Source Name Type Date Date Clinician Jese Propensi Active Unknown - 2020-0 Uni vers llin-Randall ty to See comments 12-27 it y of obactam adverse 00:00: [place] reaction 00 Medical s Branch Vancomyc Propensi Active Unknown - 2020-0 Uni vers in ty to See comments 12-27 ity of adverse 00:00: [place] reaction 00 Medical s Branch PIPERACI DRUG Active Unknown-Cmnt 2020-0 Un charlie LLIN-RANDALL 12-27 ity of OBACTAM 00:00: [place] 00 Medical Branch VANCOMYC DRUG Active Unknown-Cmnt 2020-0 Un charlie IN INGREDI 12-27 ity of 00:00: [place] 00 Medical Branch Social History Social Habit Start Date Stop Date Quantity Comments Source History SDID [facility] [place] Alcohol Frequency Medical Branch History [facility] [place] Alcohol Std Drinks Medica l Branch History [facility] [place] Alcohol Binge Medical Bra [facility] Exposure to Not sure [facility] SARS-CoV-2 (event) Medica l Branch Alcohol intake 2021-06-02 2021-06-02 [facility] 00:00:00 00:00:00 [facility] Branch Alcohol Comment 2021-04-29 2021-04-29 Social [facility] 00:00:00 00:00:00 [facility] Branch Tobacco use and 2021-04-19 2021-04-19 Never used [facility] exposure 00:00:00 00:00:00 [facility] Sex [birth year] At [birth year] [facility] 00:00:00 00:00:00 [facility] Smoking Status Start Date Stop Date Source Never smoker [facility] Medications Ordered Filled Start Stop Current Ordering Indication Dosage Frequency Signature Comments Components Source Medication Medication Date Date Medication? Clinician (SIG) Name Name cole 2020-06 Yes 800mg Take 800 Uni vers 800 mg 2-06 mg by ity of tablet 08:56: mouth. [place] 16 [facility] Branch calcium 2020-06 Yes 2{tbl} Take 2 Univer s carbonate 1-29 tablets by ity of 200 mg 12:25: mouth. [place] calcium 08 Medical (500 mg) Branch chewable tablet peg-electro 2020-06- No Use as Uni vers lyte soln -11 directed ity o f [id number] 00:00: 05:59 [place] .74 -5.86 00 :00 Medical gram Branch solution pantoprazol 2020-06 Yes [id number] Please Univers e 40 mg EC 1-04 take one ity o f tablet 00:00: tab twice [place] 00 a day for Medical two weeks. Branch Then one tab daily for 6 weeks. NIFEdipine 2020-06 Yes TAKE ONE Uni vers ER 30 mg 0-01 (1) TABLET ity o f tablet 00:00: (30 MG [place] 00 TOTAL) BY Medical MOUTH Branch EVERY 12 (TWELVE) HOURS DO NOT CRUSH, CHEW, OR SPLIT. amitriptyli Yes 50mg Take 50 mg Univers ne 50 mg 3-11 by mouth. ity of tablet 00:00: [place] 00 [facility] Branch HYDROCODONE Yes Take one Un charlie -ACETAMINOP 2-06 to two ity of HEN 5-325 17:22: [place] MG ORAL TAB 33 mouth Medical every six Branch hours as needed for pain Yes Take one Unive rs VIT-IRON 2-06 tablet by ity of FUMARATE-FA 00:00: mouth [place] 60-1 MG 00 daily Medical ORAL TAB Branch DOCUSATE Yes Take one Unive rs CALCIUM 240 2-06 capsule by it y of MG ORAL CAP 00:00: mouth [place] 00 daily as Medical needed for Branch constipati on FERROUS Yes Take one Univer s SULFATE 300 2-06 tablet by ity of (60) MG 00:00: mouth [place] ORAL TAB 00 twice Medical daily Branch Vital Signs Vital Name Observation Time Observation Value Comments Source Systolic blood 2021-06-02 14:56:00 125 mm[facility]Hg[facility] pressure [facility] Diastolic blood 2021-06-02 14:56:00 79 mm[Hg] [facility] pressure [facility] Heart rate 2021-06-02 14:56:00 77 /min General acute hospital Oxygen saturation 2021-06-02 14:56:00 97 /min [facility] in Arterial blood [facility] anch by Pulse oximetry Body weight 2021-06-02 14:53:00 88.905 kg General acute hospital BMI 2021-06-02 14:53:00 38.28 kg/m2 General acute hospital Procedures This patient has no known procedures. Encounters Start End Encounter Admission Attending Care Care Encounter Source Date/Time Date/Time Type Type Clinicians Facility Department ID 2018-10-18 Inpatient JESUS WAGONER [facility] 08:59:05 2021-08-04 2021-08-04 Outpatient R DARON CORACHEL [facility] [id number] Univers 09:30:00 09:30:[facility] 2021-06-02 Office Daron CORACHEL [id number] Univers 09:00:00 09:20:59 Visit Kevan FROST [id number] Afshan [id number] Vesta BRAVO [id number] Nj dical NAL 059 [facility] 2021-06-02 2021-06-02 Outpatient R DARON [facility] [id number] Univers 09:00:00 09:20:59 SENDIL [facility] 2021-05-19 2021-05-19 Outpatient R MIRI [facility] GIE [id number] Univers 07:30:00 08:30:00 GLORIA [facility] 2021-04-28 2021-05-01 Inpatient X ABBI, [facility] ITZEL [id number] Univers 19:38:00 20:30:00 FABRIZIO [facility] 2021-04-23 2021-04-25 Outpatient X CHAPIN [facility] IT[facility] [id number] Univers 16:15:00 16:40:00 CONNIE [facility] 2020-05-31 2020-05-31 Outpatient VALERIO, [id number] [facility] 13:30:00 23:59:00 VALENTINA 2020-03-06 2020-03-06 Outpatient AMARIS, [facility] CAR [id number] [facility] 11:38:00 11:38:00 CARMEL 2020-02-05 2020-02-05 Outpatient AMARIS, [facility] CAR [id number] [facility] 08:09:00 23:59:00 CARMEL 2020-01-24 2020-01-24 Outpatient DELIA [facility] CAR [id number] [facility] 08:53:00 08:53:00 GUTIERREZ DAILY 2018-10-19 2018-10-19 Outpatient [facility] [id number] [facility] 08:08:00 08:08:00 Results This patient has no known results.
--- NOTE | 2021-10-03 16:34 | RAD REPORT ---
EXAM DESCRIPTION: RAD - Knee Right 3 View - 10/03/2021 4:04 pm CLINICAL HISTORY: PAIN, trip and fall COMPARISON: No comparisons FINDINGS: No fracture, dislocation or periosteal reaction.No joint effusion seen. No joint space faustino rowing. Contusion or edema changes are evident in the subcutaneous fatty tissues. Baseline the patien t unknown. No foreign body seen. IMPRESSION: No acute bone or joint finding in the right knee. Clinical concerns for internal derangement or occult bony injury could be further assessed with MR im aging.
--- NOTE | 2021-10-03 16:41 | ER ---
Nurse's Notes [facility] Name: Puja Miner Age: 41 yrs Sex: Female : 1980 Arrival Date: 10/03/2021 Time: 14:45 Bed Treatment Private MD: Diagnosis: Contusion of right knee Presentation: 10/03 15:37 Chief complaint: Patient states: "I tripped over something and fell in the grass ab2 outside." Pt states she landed on her left knee. Pt denies hitting her head. Pt denies LOC. Pt denies use of blood thinner. Pt fell from standing level. Pt states this happened this morning. 15:39 Coronavirus screen: Vaccine status: Patient reports being unvaccinated. Client denies ab2 travel out of the [place] in the last 14 days. At this time, the client does not indicate any symptoms associated with coronavirus-19. Ebola Screen: Patient negative for fever greater than or equal to 101.5 degrees Fahrenheit, and additional compatible Ebola Virus Disease symptoms Patient denies exposure to infectious person. Patient denies travel to an Ebola-affected area in the 21 days before illness onset. No symptoms or risks identified at this time. Initial Sepsis Screen: Does the patient meet any 2 criteria? No. Patient's initial sepsis screen is negative. Does the patient have a suspected source of infection? No. Patient's initial sepsis screen is negative. Risk Assessment: Do you want to hurt yourself or someone else? Patient reports no desire to harm self or others. Onset of symptoms is unknown. 15:39 Method Of Arrival: Wheelchair ab2 15:39 Acuity: KATHRYN 4 ab2 Triage Assessment: 15:41 General: Appears in no apparent distress. uncomfortable, Behavior is calm, cooperative, ab2 appropriate for age. Pain: Complains of pain in right knee Pain currently is 10 out of 10 on a pain scale. Neuro: Level of Consciousness is awake, alert, obeys commands, Oriented to person, place, time, situation, Appropriate for age Director Of Maternity Services are equal bilaterally Moves all extremities. Speech is normal. Cardiovascular: No deficits noted. Denies chest pain, shortness of breath, Patient's skin is warm and dry. Respiratory: Airway is patent Respiratory effort is even, unlabored, Respiratory pattern is regular, symmetrical. GI: No deficits noted. No signs and/or symptoms were reported involving the gastrointestinal system. : No deficits noted. No signs and/or symptoms were reported regarding the genitourinary system. Derm: Bruising that is dark purple, on right knee. Musculoskeletal: Reports pain in right knee. Historical: - Allergies: 15:39 Zosyn; ab2 - PMHx: 15:39 Dialysis; Hypertension; Renal Disease; ab2 - PSHx: 15:39 section; Cholecystectomy; ab2 - Immunization history:: Adult Immunizations up to date. - Social history:: Smoking status: Patient denies any tobacco usage or history of. Screenin:00 Abuse screen: Denies threats or abuse. Denies injuries from another. Nutritional ss screening: No deficits noted. Tuberculosis screening: Never had TB. Fall Risk Fall in past 12 months (25 points). Assessment: 16:35 General: Appears uncomfortable, Behavior is calm, cooperative. Pain: Complains of pain ss in right knee Pain currently is 10 out of 10 on a pain scale. Neuro: Level of Consciousness is awake, alert, obeys commands. Respiratory: Airway is patent Respiratory effort is even, unlabored, Respiratory pattern is regular, symmetrical. GI: No signs and/or symptoms were reported involving the gastrointestinal system. Derm: Skin is dry, Skin is pink, warm \\T\\ dry. normal. 17:00 Reassessment: Patient appears in no apparent distress at this time. Patient and/or ss family updated on plan of care and expected duration. Pain level reassessed. Patient is alert, oriented x 3, equal unlabored respirations, skin warm/dry/pink. Vital Signs: 15:39 BP 182 / 90; Pulse 72; Resp 18; Temp 98.2; Pulse Ox 97% on R/A; Weight 81.65 kg; Height ab2 5 ft. 0 in. (152.40 cm); Pain 10/10; 15:39 Body Mass Index 35.15 (81.65 kg, 152.40 cm) ab2 ED Course: 14:45 Patient arrived in ED. ds1 15:41 Triage completed. ab2 15:42 Arm band placed on right wrist. ab2 15:51 Cee Dubon FNP-C [facility]. kb 15:51 Aleksander Ramírez MD is Attending Physician. kb 16:06 XRAY Knee RIGHT 3 view In Process Unspecified. EDMS 16:50 Patient has correct armband on for positive identification. Bed in low position. ss 16:59 Reny Cross, RN is Primary Nurse. ss 17:00 No provider procedures requiring assistance completed. Patient did not have IV access ss during this emergency room visit. Administered Medications: 16:49 Drug: [place] (HYDROcodone-acetaminophen) (7.5 mg-325 mg) 1 tabs Route: PO; ss 16:59 Follow up: Response: No adverse reaction; Medication administered at discharge. ss Outcome: 16:40 Discharge ordered by . kb 17:00 Discharged to home ambulatory. ss 17:00 Condition: good 17:00 Discharge instructions given to patient, family, Instructed on discharge instructions, follow up and referral plans. medication usage, Demonstrated understanding of instructions, follow-up care, medications, Prescriptions given X 1. 17:02 Patient left the ED. ss Signatures: Dispatcher [employer] EDSD Cee Dubon, SCREENER AND BLENDER-C SCREENER AND BLENDER-Ckb Seema Weber ds1 Reny Cross RN RN Fitz Mandujano ab2 Corrections: (The following items were deleted from the chart) 15:41 15:37 Chief complaint: Patient states: "I tripped over something and fell in the grass ab2 outside." Pt states she landed on her left knee. Pt denies hitting her head. Pt denies LOC. Pt denies use of blood thinner. Pt fell from standing level ab2
--- NOTE | 2021-10-03 16:41 | EDPHYS ---
Physician Documentation [facility] Name: Puja Miner Age: 41 yrs Sex: Female : 1980 Arrival Date: 10/03/2021 Time: 14:45 Bed Treatment Private MD: ED Physician Aleksander Ramírez HPI: 10/03 16:43 This 41 yrs old Female presents to ER via Wheelchair with complaints of Fall kb Injury. 16:43 Details of fall: The patient fell from an upright position, while walking. Onset: The kb symptoms/episode began/occurred this morning. Associated injuries: The patient sustained right knee. Severity of symptoms: At their worst the symptoms were moderate, in the emergency department the symptoms are unchanged. The patient has not experienced similar symptoms in the past. The patient has not recently seen a physician. 16:43 Pt reports she tripped and fell onto right knee this morning. c/o right knee pain. kb Historical: - Allergies: 15:39 Zosyn; ab2 - PMHx: 15:39 Dialysis; Hypertension; Renal Disease; ab2 - PSHx: 15:39 section; Cholecystectomy; ab2 - Immunization history:: Adult Immunizations up to date. - Social history:: Smoking status: Patient denies any tobacco usage or history of. ROS: 16:42 Constitutional: Negative for fever, chills, and weight loss. kb 16:42 MS/extremity: Positive for pain, swelling, tenderness, of the right knee. 16:42 All other systems are negative. Exam: 16:42 Constitutional: This is a well developed, well nourished patient who is awake, alert, kb and in no acute distress. Head/Face: Normocephalic, atraumatic. ENT: Moist Mucous membranes Respiratory: Respirations even and unlabored. No increased work of breathing. Talking in full sentences Abdomen/GI: Soft, non-tender. No distention Skin: Warm, dry with normal turgor. Normal color. Neuro: Awake and alert, GCS 15, oriented to person, place, time, and situation. Moves all extremities. Normal gait. Psych: Awake, alert, with orientation to person, place and time. Behavior, mood, and affect are within normal limits. 16:42 Musculoskeletal/extremity: Extremities: grossly normal except: noted in the right knee: contusion, ecchymosis, pain, swelling, tenderness, ROM: intact in all extremities, Circulation is intact in all extremities. Sensation intact. Weight bearing: able to fully bear weight. Vital Signs: 15:39 BP 182 / 90; Pulse 72; Resp 18; Temp 98.2; Pulse Ox 97% on R/A; Weight 81.65 kg; Height ab2 5 ft. 0 in. (152.40 cm); Pain 10/10; 15:39 Body Mass Index 35.15 (81.65 kg, 152.40 cm) ab2 MDM: 16:10 Patient medically screened. kb 16:42 Data reviewed: vital signs, nurses notes. Data interpreted: Pulse oximetry: on room air kb is 97 %. Interpretation: normal. Counseling: I had a detailed discussion with the patient and/or guardian regarding: the historical points, exam findings, and any diagnostic results supporting the discharge/admit diagnosis, radiology results, the need for outpatient follow up, a family practitioner, a orthopedic surgeon, to return to the emergency department if symptoms worsen or persist or if there are any questions or concerns that arise at home. 04 15:42 Order name: XRAY Knee RIGHT 3 view; Complete Time: 16:36 ab2 10/03 16:41 Order name: Manuel Wrap; Complete Time: 16:59 kb Administered Medications: 16:49 Drug: [place] (HYDROcodone-acetaminophen) (7.5 mg-325 mg) 1 tabs Route: PO; ss 16:59 Follow up: Response: No adverse reaction; Medication administered at discharge. ss Disposition Summary: 10/03/21 16:40 Discharge Ordered Location: Home kb Condition: Stable kb Diagnosis - Contusion of right knee kb Followup: kb - With: Emergency Department - When: As needed - Reason: Worsening of condition Followup: kb - With: Private Physician - When: 2 - 3 days - Reason: Recheck today's complaints, Continuance of care, Re-evaluation by your physician Discharge Instructions: - Discharge Summary Sheet kb - Contusion, [id number] kb - Acute Knee Pain, Adult, [id number] kb Forms: - Medication Reconciliation Form kb - Thank You Letter kb - Antibiotic Education kb - Prescription Opioid Use kb Prescriptions: - Diclofenac Sodium 75 mg Oral tablet,delayed release (DR/EC) - take 1 tablet by ORAL route 2 times per day As needed; 20 tablet; Refills: 0, kb Product Selection Permitted Signatures: Dispatcher [employer] Cee Hutton, SUPERVISOR GENERAL-C SUPERVISOR GENERAL-Reny Lorenzo, RN RN Fitz Mistry
[2021-10-03] MEDS ORDERED: HYDROCODONE/APAP 7.5/325 MG TAB ONE (16:49)
[2021-10-03 19:06] VITALS: BP 182/90; TEMP 98.2; O2SAT 97
== END 2021-10-03 17:02 | disposition home or self-care (01) ==
LOC: ER 14:42
DX: S80.01XA Contusion of right knee, initial encounter (principal); W01.0XXA Fall on same level from slipping, tripping and stumbling without subsequent striking against object, initial encounter; Y93.01 Activity, walking, marching and hiking; I12.0 Hypertensive chronic kidney disease with stage 5 chronic kidney disease or end stage renal disease; N18.6 End stage renal disease; Z99.2 Dependence on renal dialysis; Z88.8 Allergy status to other drugs, medicaments and biological substances
CPT/HCPCS: 99283

== ENCOUNTER 2022-02-17 09:27 | Emergency (ER) | payer OTHER ==
--- OUTSIDE RECORDS SUMMARY | 2022-02-17 09:35 | XMS REPORT | Continuity of Care Document ---
:1980 Author Organization [facility] t Address [address] [place] [address] Care Team Providers Name Role Phone PCP, PATIENT DOES NOT HAVE A Primary Care Physician Unavaila ble JESUS WAGONER Attending Clinician Unavailable ANNABEL CAMPO Attending Clinician Unavailable DAPHNIE JOHNSON Attending Clinician Unavailable Daphnie Johnson MD Attending Clinician VALETNINA LUO Attending Clinician Unavailable CARMEL GLEZ Attending Clinician Unavailable GUTIERREZ RO Attending Clinician Unavailable JESUS WAGONER Admitting Clinician Unavailable ANNABEL CAMPO Admitting Clinician Unavailable Payers Payer Name Policy Type Policy Number Effective Date Expiration Date S ource Problems Condition Condition Condition Status Onset Resolution Last Treating Co mments Source Name Details Category Date Date Treatment Clinician Date GIB GIB Disease Active 2020-06 [facility] (gastroint (gastroint 06-29 [place] c peptide c peptide 00 [facility] (BNP) (BNP) Branch level level Essential Essential [...] hemorrhage [place] 00 Medical melena melena Branch Obesity Obesity Disease Active [...] Date Stop Date Quantity Comments Source History SDIL [facility] [place] Alcohol Frequency Medical Branch History SDIL [facility] [place] Alcohol Std Drinks Medica l Branch History [facility] [place] Alcohol Binge Medical Bra [facility] Exposure to Not sure [facility] SARS-CoV-2 (event) Medica l Branch Alcohol intake 2021-10-09 2021-10-09 [facility] 00:00:00 00:00:00 Medical Branch Alcohol Comment 2021-04-29 2021-04-29 Social [facility] 00:00:00 00:00:00 Medical Branch Tobacco use and 2021-04-19 2021-04-19 Never used [facility] exposure 00:00:00 00:00:00 [facility] Branch Sex Ass[birth year] At [birth year] [facility] 00:00:00 00:00:00 [facility] Branch Smoking Status Start Date Stop Date Source Never smoker [facility] Medications Ordered Filled Start Stop Current Ordering Indication Dosage Frequency Signature Comments Components Source Medication Medication Date Date Medication? Clinician (SIG) Name Name cole 2020-06 Yes 800mg Take 800 Uni vers 800 mg 2-06 mg by ity of tablet 08:56: mouth. [address] sevelamer 2020-06 Yes 800mg Take 800 Uni vers 800 mg 2-06 mg by ity of tablet 08:56: mouth. [address] calcium 2020-06 Yes 2{tbl} Take 2 Univer s carbonate 1-29 tablets by ity of 200 mg 12:25: mouth. [place] calcium 08 Medical (500 mg) Harper chewable tablet calcium 2020-06 Yes 2{tbl} Take 2 Univer s carbonate 1-29 tablets by ity of 200 mg 12:25: mouth. [place] calcium 08 Medical (500 mg) [place] chewable tablet peg-electro 2020-06- No Use as Uni vers lyte soln 07-07 directed ity o f [id number] 00:00: 05:59 [place] .74 -5.86 00 :00 Medical gram Branch solution peg-electro 2020-06- No Use as Uni vers lyte soln 07-07 directed ity o f [id number] 00:00: 05:59 [place] .74 -5.86 00 :00 Medical gram Harper solution pantoprazol 2020-06 Yes [id number] Please Univers e 40 mg EC 1-04 take one ity o f tablet 00:00: tab twice [place] 00 a day for Medical two weeks. Branch Then one tab daily for 6 weeks. pantoprazol 2020-06 Yes [id number] Please Univers e 40 mg EC 04 take one ity o f tablet 00:00: tab twice [place] 00 a day for Medical two weeks. Branch Then one tab daily for 6 weeks. NIFEdipine 2020-06 Yes TAKE ONE Uni vers ER 30 mg 0-01 (1) TABLET ity o f tablet 00:00: (30 MG 00 TOTAL) BY Medical MOUTH Branch EVERY 12 (TWELVE) HOURS DO NOT CRUSH, CHEW, OR SPLIT. NIFEdipine 2020-06 Yes TAKE ONE Uni vers ER 30 mg 0-01 (1) TABLET ity o f tablet 00:00: (30 MG 00 TOTAL) BY Medical MOUTH Branch EVERY 12 (TWELVE) HOURS DO NOT CRUSH, CHEW, OR SPLIT. amitriptyli Yes 50mg Take 50 mg Univers ne 50 mg 3-11 by mouth. ity of tablet 00:00: [place] 00 Medical Branch amitriptyli Yes 50mg Take 50 mg Univers ne 50 mg 3-11 by mouth. ity of tablet 00:00: [place] 00 Medical Branch HYDROCODONE Yes Take one Un charlie -ACETAMINOP 2-06 to two ity of HEN 5-325 17:22: tablets by [place] MG ORAL TAB 33 mouth Medical every six Branch hours as needed for pain HYDROCODONE Yes Take one Un charlie -ACETAMINOP [...] ORAL TAB 00 twice Medical daily Branch Yes Take one Unive rs VIT-IRON 2-06 [...] Name Observation Time Observation Value Comments Source Body temperature 2021-10-09 15:51:00 [facility].67 [facility] height 2021-10-09 15:51:00 152.4 cm [facility] Body weight 2021-10-09 15:51:00 87.998 kg [facility] BMI 2021-10-09 15:51:00 37.89 kg/m2 [facility] Procedures Procedure Date / Time Performed Performing Clinician Sourc e XR KNEE 4+ VW RIGHT 2021-10-09 16:06:00 Daphnie Johnson [facility] Encounters Start End Encounter Admission Attending Care Care Encounter Source Date/Time Date/Time Type Type Clinicians Facility Department ID 2018-10-18 Inpatient JESUS WAGONER [facility] [id number] [facility] 08:59:05 2021-10-10 2021-10-16 Inpatient ALBER [facility] [id number] [place] [address] 00:00:00 00:00:00 ANNABEL [address] 2021-10-09 2021-10-09 Outpatient R ALEX [facility] [id number] [facility] 14:30:00 14:30:00 [facility] [id number] [facility]-10-09 2021-10-09 [facility] [id number] [facility] 10:53:46 14:27:00 Encounter Daphnie [id number] [id number] [facility] AT [phone] Ar ousmane ROSE 809 [facility] 2021-10-09 2021-10-09 Office [facility] [id number] Univers 11:10:00 11:30:52 Visit Daphnie SPECIALTY [id number] [facility] [id number] [facility] AT [phone] Ar ousmane ROSE [address] [place] [address] 2021-10-09 2021-10-09 Outpatient Ted JOHNSON [facility] [id number] Univers 11:10:00 11:30:52 DAPHNIE [facility] 2020-05-31 2020-05-31 Outpatient VALERIO, [facility] [id number] [facility] 13:30:00 23:59:00 VALENTINA 2020-03-06 2020-03-06 Outpatient AMARIS, [facility] CAR [id number] [facility] 11:38:00 11:38:00 CARMEL 2020-02-05 2020-02-05 Outpatient AMARIS, [facility] CAR [id number] [facility] 08:09:00 23:59:00 CARMEL 2020-01-24 2020-01-24 Outpatient DELIA [facility] CAR [id number] [facility] 08:53:00 08:53:00 GUTIERREZ DAILY 2018-10-19 2018-10-19 Outpatient [facility] [id number] [facility] 08:08:00 08:08:00 Results Test Description Test Time Test Comments Results Result Comments Source SARS-CoV-2 (COVID-19) RNA [Presence] in Respiratory sp ecimen by 2021-10-11 00:43:08 ROXANN with probe detection Test Item Value Reference Range Interpretation Comme nts SARS-CoV-2 (COVID-19) RNA [Presence] in Respiratory specimen by Not detected ROXANN with probe detection (test code = 77622-0) Whether patient is employed in a healthcare setting (test code = Un known 07898-1) Whether the patient has symptoms related to condition of interest U nknown (test code = 39431-4) Whether the patient was hospitalized for condition of interest Unkn own (test code = 20624-6) Whether the patient was admitted to intensive care unit (ICU) for U nknown condition of interest (test code = 00411-1) Whether patient resides in a congregate care setting (test code = U nknown 75875-6) status (test code = 25754-9) Unknown Date and time of symptom onset (test code = 10567-6) Unknown
--- NOTE | 2022-02-17 10:34 | RAD REPORT ---
EXAM DESCRIPTION: US - Extremity Venous Uni Ltd - 02/17/2022 10:21 am CLINICAL HISTORY: Left leg pain x2 weeks COMPARISON: None. TECHNIQUE: Real-time sonographic evaluation of the left lower extremity deep venous system was perfo rmed. FINDINGS: Normal compressibility, flow augmentation, phasic flow and spontaneous flow is identified in the left lower extremity deep venous system. No intraluminal filling defects seen. IMPRESSION: No DVT in the left lower extremity.
[2022-02-17] MEDS ORDERED: HYDROCODONE/APAP 5/325 MG TAB ONE (10:41)
--- NOTE | 2022-02-17 10:58 | RAD REPORT ---
EXAM DESCRIPTION: RAD - Tib Fib Left - 02/17/2022 10:26 am CLINICAL HISTORY: PAIN COMPARISON: No comparisons FINDINGS/IMPRESSION: No acute fracture. No malalignment. No significant focal degenerative changes. Vascular calcifications.
--- NOTE | 2022-02-17 11:25 | ER ---
Nurse's Notes [facility] Name: Puja Miner Age: 41 yrs Sex: Female : 1980 Arrival Date: 02/17/2022 Time: 09:29 Bed 19 Private MD: Diagnosis: Pain in left lower leg Presentation: 02/17 09:49 Chief complaint: Patient states: left leg pain x2 weeks; thinks it's because she is jh5 standing too much. Coronavirus screen: Vaccine status: Patient reports receiving the 2nd dose of the covid vaccine. Client denies travel out of the [place] in the last 14 days. Ebola Screen: Patient negative for fever greater than or equal to 101.5 degrees Fahrenheit, and additional compatible Ebola Virus Disease symptoms Patient denies exposure to infectious person. Patient denies travel to an Ebola-affected area in the 21 days before illness onset. Initial Sepsis Screen: Does the patient meet any 2 criteria? No. Patient's initial sepsis screen is negative. Does the patient have a suspected source of infection? No. Patient's initial sepsis screen is negative. Risk Assessment: Do you want to hurt yourself or someone else? Patient reports no desire to harm self or others. Onset of symptoms was January 27, 2022. 09:49 Method Of Arrival: Ambulatory [facility] 09:49 Acuity: KATHRYN 4 jh5 Triage Assessment: 09:52 General: Appears in no apparent distress. uncomfortable, Behavior is calm, cooperative, jh5 appropriate for age. Pain: Complains of pain in left leg. Historical: - Allergies: 09:52 Zosyn; jh5 - PMHx: 09:52 Dialysis; Hypertension; Renal Disease; jh5 - PSHx: 09:52 section; Cholecystectomy; jh5 - Immunization history:: Adult Immunizations up to date. - Social history:: Smoking status: Patient denies any tobacco usage or history of. Screenin:53 Abuse screen: Denies threats or abuse. Denies injuries from another. Nutritional 5 screening: No deficits noted. Tuberculosis screening: No symptoms or risk factors identified. Fall Risk None identified. Assessment: 10:48 General: Appears in no apparent distress. comfortable, Behavior is calm, cooperative. em6 Pain: Complains of pain in left mccray Pain does not radiate. Pain currently is 7 out of 10 on a pain scale. Quality of pain is described as sharp. Neuro: Marshall Agitation-Sedation Scale (RASS): 0 - Alert and Calm Level of Consciousness is awake, alert, obeys commands, Oriented to person, place, time, situation. Cardiovascular: Heart tones present Capillary refill < 3 seconds Patient's skin is warm and dry. Respiratory: Airway is patent Respiratory effort is even, unlabored, Respiratory pattern is regular, symmetrical. GI: No signs and/or symptoms were reported involving the gastrointestinal system. : No signs and/or symptoms were reported regarding the genitourinary system. EENT: No signs and/or symptoms were reported regarding the EENT system. Derm: redness noted in left mid lower leg. Musculoskeletal: Circulation, motion, and sensation intact. Range of motion: intact in all extremities, Swelling present in right leg and left leg. 11:31 Reassessment: Patient appears in no apparent distress at this time. No changes from em6 previously documented assessment. Patient and/or family updated on plan of care and expected duration. Pain level reassessed. Vital Signs: 09:49 BP 146 / 82; Pulse 87; Resp 20; Temp 98.7; Pulse Ox 100% ; Weight 83.91 kg; Height 5 5 ft. 0 in. (152.40 cm); Pain 8/10; 10:48 BP 155 / 79; Pulse 68; Resp 18; Pulse Ox 95% on R/A; em6 11:40 BP 156 / 82; Pulse 70; Resp 18; Pulse Ox 98% on R/A; em6 09:49 Body Mass Index 36.13 (83.91 kg, 152.40 cm) 5 ED Course: 09:29 Patient arrived in ED. rg4 09:38 Jeses Ocampo NP is PHCP. pm1 09:38 Donald Ornelas MD is Attending Physician. pm1 09:52 Triage completed. jh5 09:53 Patient has correct armband on for positive identification. jh5 09:53 No provider procedures requiring assistance completed. jh5 10:23 Extremity Venous Uni Ltd US In Process Unspecified. EDMS 10:24 X-ray completed. Patient taken to lobby, Patient moved back from radiology. md1 10:27 Tib Fib Left XRAY In Process Unspecified. EDMS 10:52 Bed in low position. Call light in reach. Side rails up X 1. Door closed. Noise mb7 minimized. 11:14 Arm band placed on. em6 11:41 Patient did not have IV access during this emergency room visit. em6 Administered Medications: 10:33 Drug: HYDROcodone-acetaminophen 5 mg-325 mg 1 tabs Route: PO; jh5 11:13 Follow up: Response: No adverse reaction; RASS: Alert and Calm (0) em6 Medication: 11:14 VIS not applicable for this client. em6 Outcome: 11:25 Discharge ordered by . pm1 11:41 Discharged to home ambulatory. em6 11:41 Condition: stable 11:41 Discharge instructions given to patient, Instructed on discharge instructions, follow up and referral plans. medication usage, Demonstrated understanding of instructions, follow-up care, medications, Prescriptions given X 1. 11:41 Patient left the ED. em6 Signatures: Dispatcher [employer] EDMS Jesse Ocampo, DAYA BLOWER OPERATOR pm1 Nicole Cole4 Grace Meza md1 Cassy Mei, RN RN jh5 Yesy Huitron mb7 Meenakshi Delgado, BRIAN RN em6
--- NOTE | 2022-02-17 11:25 | EDPHYS ---
Physician Documentation [facility] Name: Puja Miner Age: 41 yrs Sex: Female : 1980 Arrival Date: 02/17/2022 Time: 09:29 Bed 19 Private MD: ED Physician Donald Ornelas HPI: 02/17 09:58 This 41 yrs old Female presents to ER via Ambulatory with complaints of Leg pm1 Pain. 09:58 The patient presents with pain, that is acute. pm1 09:58 The complaints affect the left leg. Context: The problem was sustained at an unknown pm1 site, resulted from an unknown cause, Denies trauma, the patient can fully bear weight, the patient is able to ambulate, Problem is a result from a previous injury: No. Onset: The symptoms/episode began/occurred 2 week(s) ago. Modifying factors: The symptoms are alleviated by nothing. the symptoms are aggravated by nothing. Associated signs and symptoms: Pertinent negatives calf tenderness, numbness, tingling. Treatment prior to arrival includes: no previous treatment. Severity of symptoms: in the emergency department the symptoms are unchanged. The patient has not experienced similar symptoms in the past. The patient has been recently seen by a physician: the patient's primary care provider, with similar presenting complaints, Ultrasound outpatient ordered. One 49-year-old patient presenting to the ER with complaints of left lower leg pain for 2 weeks. Patient uncertain of potential cause of pain. Denies injury. Was seen by her PCP who ordered an ultrasound outpatient for left lower leg to rule out blood clot. Patient presented to the ER 1 week ago with request for ultrasound and was directed to outpatient imaging services. Patient was told she needs an order for the ultrasound which she currently did not have. Therefore patient did not get the ultrasound and is presenting here today for ultrasound to rule out blood clot. Patient completed her dialysis 1 hour prior to arrival. Historical: - Allergies: 09:52 Zosyn; jh5 - PMHx: 09:52 Dialysis; Hypertension; Renal Disease; jh5 - PSHx: 09:52 section; Cholecystectomy; 5 - Immunization history:: Adult Immunizations up to date. - Social history:: Smoking status: Patient denies any tobacco usage or history of. ROS: 09:58 Constitutional: Negative for fever, chills, and weight loss, Cardiovascular: Negative pm1 for chest pain, palpitations, and edema, Respiratory: Negative for shortness of breath, cough, wheezing, and pleuritic chest pain, Abdomen/GI: Negative for abdominal pain, nausea, vomiting, diarrhea, and constipation. 09:58 MS/extremity: Positive for pain, swelling, of the left mccray and left leg, Negative for injury or acute deformity, decreased range of motion. 09:58 Skin: Negative for injury, rash. Chronic bilateral lower extremity discoloration, no pm1 acute changes 09:58 Neuro: Negative for headache, weakness, numbness, tingling, and seizure. 09:58 All other systems are negative. Exam: 09:58 Constitutional: This is a well developed, well nourished patient who is awake, alert, pm1 and in no acute distress. Head/Face: Normocephalic, atraumatic. 09:58 Eyes: Exam is negative for acute changes, Periorbital structures: no acute changes, Extraocular movements: no acute changes. 09:58 ENT: Exam is negative for acute changes, Mouth: no acute changes, Lips: normal, moist, Oral mucosa: normal, pink and intact, moist. 09:58 Cardiovascular: Exam negative for acute changes, Rate: normal, Rhythm: regular, Pulses: no pulse deficits are appreciated, Edema: pedal edema, that is mild, bilateral. 09:58 Respiratory: Exam negative for acute changes, respiratory distress, shortness of breath. 09:58 Skin: Exam negative for acute changes, Appearance: normal except for affected area, darkened skin to lower bilateral extremities, injury, is not appreciated, lesion(s), are not present. 09:58 Neuro: Exam negative for acute changes, Orientation: is normal, Mentation: is normal, Motor: is normal, moves all fours, Sensation: is normal, no obvious gross deficits. Vital Signs: 09:49 BP 146 / 82; Pulse 87; Resp 20; Temp 98.7; Pulse Ox 100% ; Weight 83.91 kg; Height 5 jh5 ft. 0 in. (152.40 cm); Pain 8/10; 10:48 BP 155 / 79; Pulse 68; Resp 18; Pulse Ox 95% on R/A; em6 11:40 BP 156 / 82; Pulse 70; Resp 18; Pulse Ox 98% on R/A; em6 09:49 Body Mass Index 36.13 (83.91 kg, 152.40 cm) [facility] MDM: 09:53 Patient medically screened. pm1 11:06 Data reviewed: vital signs. Data interpreted: Pulse oximetry: on room air is 95 %. pm1 Interpretation: normal. Counseling: I had a detailed discussion with the patient and/or guardian regarding: the historical points, exam findings, and any diagnostic results supporting the discharge/admit diagnosis, radiology results, the need for outpatient follow up, to return to the emergency department if symptoms worsen or persist or if there are any questions or concerns that arise at home. 11:35 ED course: [place] reviewed. Patient requested pain medications prescription . pm1 02/17 09:52 Order name: Tib Fib Left XRAY; Complete Time: 11:05 pm1 02/17 09:52 Order name: Extremity Venous [employer] US; Complete Time: 10:37 pm1 Administered Medications: 10:33 Drug: HYDROcodone-acetaminophen 5 mg-325 mg 1 tabs Route: PO; [facility] 11:13 Follow up: Response: No adverse reaction; RASS: Alert and Calm (0) em6 Disposition: 15:34 Co-signature as Attending Physician, Donald Ornelas MD I agree with the assessment and kdr plan of care. Disposition Summary: 02/17/22 11:25 Discharge Ordered Location: Home pm1 Problem: new pm1 Symptoms: have improved pm1 Condition: Stable pm1 Diagnosis - Pain in left lower leg pm1 Followup: pm1 - With: Emergency Department - When: As needed - Reason: Worsening of condition Followup: pm1 - With: Private Physician - When: 2 - 3 days - Reason: Recheck today's complaints, Continuance of care, Re-evaluation by your physician Discharge Instructions: - Discharge Summary Sheet pm1 Forms: - Medication Reconciliation Form pm1 - Thank You Letter pm1 - Antibiotic Education pm1 - Prescription Opioid Use pm1 Prescriptions: - Tylenol-Codeine #3 300 mg-30 mg Oral - take 1 tablet by ORAL route every 6 hours As needed; 12 tablet; Refills: 0, pm1 Product Selection Permitted Signatures: Dispatcher [employer] Donald Cheung MD MD kdr Marinas, Patrick, [employer] ATTEND[employer] pm1 Cassy Mei RN RN 5 Meenakshi Delgado RN em6 Corrections: (The following items were deleted from the chart) 12:03 09:58 One 49-year-old patient presenting to the ER with complaints of left lower leg pm1 pain for 2 weeks. Patient uncertain of potential cause of pain. Denies injury. Was seen by her PCP who ordered an ultrasound outpatient for left lower leg to rule out blood clot. Patient presented to the ER 1 week ago with request for ultrasound and was directed to outpatient imaging services. Patient was told she needs an order for the ultrasound which she currently did not have. Therefore patient did not get the ultrasound and is presenting here today for ultrasound to rule out blood clot. pm1
[2022-02-17 11:49] VITALS: TEMP 98.7
[2022-02-17 11:53] VITALS: BP 156/82; O2SAT 98
== END 2022-02-17 11:41 | disposition home or self-care (01) ==
LOC: ER 09:27
DX: M79.662 Pain in left lower leg (principal); I12.0 Hypertensive chronic kidney disease with stage 5 chronic kidney disease or end stage renal disease; N18.6 End stage renal disease; Z99.2 Dependence on renal dialysis; Z88.8 Allergy status to other drugs, medicaments and biological substances
CPT/HCPCS: 93971

== ENCOUNTER 2022-05-03 15:53 | Emergency (ER) | payer OTHER ==
--- OUTSIDE RECORDS SUMMARY | 2022-05-03 15:57 | XMS REPORT | Continuity of Care Document ---
:1980 Author Organization [facility] t Address [address] [place] [address] Care Team Providers Name Role Phone PCP, PATIENT DOES NOT HAVE A Primary Care Physician UnavailJESUS Osborn Attending Clinician Unavailable Tadeo Muñiz MD Attending Clinician Jesse Cardenas MD Attending Clinician Daphnie Keene MD Attending Clinician [phone] DAPHNIE KEENE Attending Clinician Unavailable NIKKI NERI.Conchita Attending Clinician Unavailable Nikki Neri MD Attending Clinician GLORIA GLASS Attending Clinician Unavailable Gloria Glass MD Attending Clinician Motility, Endoscopy Attending Clinician Unavailable Doctor Unassigned, [place] Attending Clinician Unavailable Jesus ENGLISH, Ryan Rojas Attending Clinician Martha Shaw RN Attending Clinician Unavailable FABRIZIO COLINDRES Attending Clinician Unavailable Mary Tavarez MD Attending Clinician Fabrizio Colindres DO Attending Clinician Pricila Goodson MD Attending Clinician CONNIE SAMSON Attending Clinician Unavailable Sadie Foote Attending Clinician Connie Samson MD Attending Clinician Leatha Gilliam MD Attending Clinician IQRA JEAN Attending Clinician Unavailable Iqra Hernandes Attending Clinician VALENTINA LUO Attending Clinician Unavailable CARMEL GLEZ Attending Clinician Unavailable GUTIERREZ RO Attending Clinician Unavailable JESUS WAGONER Admitting Clinician Unavailable JESSE CARDENAS Admitting Clinician Unavailable GLORIA GLASS Admitting Clinician Unavailable Gloria Glass MD Admitting Clinician PRICILA GOODSON Admitting Clinician Unavailable Pricila Goodson MD Admitting Clinician CONNIE SAMSON Admitting Clinician Unavailable Connie Samson MD Admitting Clinician Payers Payer Name Policy Type Policy Number Effective Date Expiration Date S ource Problems Condition Condition Condition Status Onset Resolution Last Treating Co mments Source Name Details Category Date Date Treatment Clinician Date Acute pain Acute pain Disease Active M ethodi of right of right 4-16 st knee knee 00:00: Hospita 00 l Hematoma Hematoma Disease Active Metho di of left of left 4-15 st lower leg lower leg 00:00: Hosp yancy 00 l GIB GIB Disease Active 2020-06 Univers (gastroint (gastroint 1-02 it y of estinal estinal 00:00: [place] bleeding) bleeding) 00 Medi nikhil Branch Right Right Disease Active 2020-06 Univers atrial atrial 0-29 ity of mass mass 00:00: [place] 00 Medical Branch Pulmonary Pulmonary Disease Active 2020-06 Uni vers hypertensi hypertensi 0-29 it y of on on 00:00: [place] [facility] Elevated Elevated Disease Active 2020-06 Unive rs brain brain 0-29 ity of natriureti natriureti [place] c peptide c peptide 00 Medi nikhil (BNP) (BNP) Branch level level Essential Essential Disease Active 2020-06 Uni vers hypertensi hypertensi 0-28 it y of on on 00:00: [place] [facility] ESRD (end ESRD (end Disease [...] (BMI 0-27 ity of 30-39.9) 30-39.9) 00:00: [place] [facility] Pleural Pleural Disease Active 2015-06 Methodi effusion effusion 0-11 st 00:00: Hospita 00 l Respirator Respirator Disease Active 2015-06 M ethodi y y 0-11 st insufficie insufficie 00:00: Ho spita ncy ncy 00 l 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 tts Allergies, Adverse Reactions, Alerts Allergy Allergy Status Severity Reaction(s) Onset Inactive Treating Comm ents Source Name Type Date Date Clinician Vancomyc Propensi Active Thrombocytop Methodi in ty to enia 4-15 st adverse 00:00: Hospita reaction 00 l s to drug Piperaci Propensi Active Other (See Epistaxis Methodi llin-Randall ty to Comments) 4-15 st obactam adverse 00:00: Hospita reaction 00 l s to drug Piperaci Propensi Active Unknown - Uni vers llin-Randall ty to See comments 12-27 it y of obactam adverse 00:00: [place] reaction 00 Medical s Branch Vancomyc Propensi Active Unknown - Uni vers in ty to See comments 12-27 ity of adverse 00:00: [place] reaction 00 Medical s Branch PIPERACI DRUG Active Unknown-Cmnt Un charlie LLIN-RANDALL 12-27 ity of OBACTAM 00:00: [place] 00 Medical Branch VANCOMYC DRUG Active Unknown-Cmnt Un charlie IN INGREDI 12-27 ity of 00:00: Medical Branch No Known Propensi Active Method i Drug ty to 11-07 st Allergie adverse 00:00: Hospita s reaction 00 l s to drug Family History Family Member Diagnosis Comments Start Date Stop Date Source Natural father Diabetes [facility] Natural mother Hypertension [facility] Social History Social Habit Start Date Stop Date Quantity Comments Source History SDOH University o f Alcohol Frequency [facility] edical Branch History SDOH University o f Alcohol Std [place] Medical Drinks Branch History SDOH University o f Alcohol Binge [place] Medic al Branch Exposure to Not sure [facility] SARS-CoV-2 [facility] (event) [place] Alcohol intake 2021-10-11 2021-10-11 Current [facility] 00:00:00 00:00:00 non-drinker of alcohol (finding) Alcohol Comment 2021-04-29 2021-04-29 Social Universit y of 00:00:00 00:00:00 [facility] Tobacco use and 2021-04-19 2021-04-19 Never used Universit y of exposure 00:00:00 00:00:00 [facility] Sex Ass[birth year] At [birth year] [facility] 00:00:00 00:00:00 Smoking Status Start Date Stop Date Source Never smoker [facility] Medications Ordered Filled Start Stop Current Ordering Indication Dosage Frequency Signature Comments Components Source Medication Medication Date Date Medication? Clinician (SIG) Name Name NIFEdipine Yes 30mg Q.5D Take 30 mg M ethodi ER 4-[address] (PROCARDIA- 19:28: (two) Hospi ta XL) 30 MG 01 times a l 24 hr day. tablet Patient states not -XL diclofenac Yes 75mg Q.5D Take 75 mg M ethodi (VOLTAREN) 4-[address] 75 MG EC 19:28: (two) Hospita tablet 01 times a l day. cephalexin 2021- No 500mg Q.25D Take 500 Methodi (KEFLEX) 4-22 04-[address] 500 MG 19:28: 00:00 mouth 4 Hospita capsule 01 :00 (four) l times a day. sevelamer 2020-06 Yes 800mg Take 800 Uni vers 800 mg 2-06 mg by ity of tablet 08:56: mouth. [address] sevelamer 2020-06 Yes 800mg Take 800 Uni vers 800 mg 2-06 mg by ity of tablet 08:56: mouth. [address] calcium 2020-06 Yes 2{tbl} Take 2 Univer s carbonate 1-29 tablets by ity of 200 mg 12:25: mouth. [place] calcium 08 Medical (500 mg) [place] chewable tablet calcium 2020-06 Yes 2{tbl} Take 2 Univer s carbonate 1-29 tablets by ity of 200 mg 12:25: mouth. [place] calcium Medical (500 mg) [place] chewable tablet peg-electro 2020-06- No Use as Uni vers lyte soln 07-07 directed ity o f [id number] 00:00: 05:59 [place] .74 -5.86 00 :00 Medical [facility] solution peg-electro 2020-06- No Use as Uni vers lyte soln 07-07 directed ity o f [id number] 00:00: 05:59 [place] .74 -5.86 00 :00 [facility] gram [place] solution pantoprazol 2020-06 Yes [id number] Please Univers e 40 mg EC 1-04 take one ity o f tablet 00:00: tab twice [place] 00 a day for Medical two weeks. Branch Then one tab daily for 6 weeks. pantoprazol 2020-06 Yes [id number] Please Univers e 40 mg EC 1-04 [...] DO NOT CRUSH, CHEW, OR SPLIT. NIFEdipine 2021-1 Yes TAKE ONE Uni vers ER 30 mg 0-01 (1) TABLET ity o f tablet 00:00: (30 MG [place] 00 TOTAL) BY Medical MOUTH Branch EVERY 12 (TWELVE) HOURS DO NOT CRUSH, CHEW, OR SPLIT. amitriptyli Yes 50mg Take 50 mg Univers ne 50 mg 3-11 by mouth. ity of tablet 00:00: Medical Branch amitriptyli Yes 50mg Take 50 [...] ORAL TAB 00 twice Medical daily Branch Immunizations Ordered Immunization Filled Immunization Date Status Commen ts Source Name Name Tdap 2021-10-10 Completed Islam 00:00:00 Hospital Vital Signs Vital Name Observation Time Observation Value Comments Source Body temperature 2021-10-09 15:51:00 35.67 [facility] Body height 2021-10-09 15:51:00 152.4 cm [facility] Body weight 2021-10-09 15:51:00 87.998 [facility] BMI 2021-10-09 15:51:00 37.89 kg/m2 [facility] Systolic blood 2021-10-16 21:57:26 135 mm[Hg] [facility] [place] pressure Diastolic blood 2021-10-16 21:57:26 76 mm[Hg] [facility] pressure Heart rate 2021-10-16 21:57:26 81 /min [facility] Body temperature 2021-10-16 21:57:26 36.56 Mag[facility] Respiratory rate 2021-10-16 21:57:26 18 /min [facility] Oxygen saturation in 2021-10-16 21:57:26 95 /min [facility] Arterial blood by Pulse oximetry Body height 2021-10-11 05:35:[address] [facility] Body weight 2021-10-11 05:35:[address] [facility] BMI 2021-10-11 05:35:55 39.65 kg/m2 [facility] Procedures Procedure Date / Time Performing Clinician Source Performed HC COMPLETE BLD COUNT 2021-10-16 15:29:00 Ten Dominguez [facility] [place] W/AUTO DIFF HC COMPLETE BLD COUNT 2021-10-16 01:47:00 [facility] HEMODIALYSIS 2021-10-14 20:03:44 Jesse Cardenas Ho spital XR KNEE 3 VW RIGHT 2021-10-14 18:01:09 Princess Burton [facility] HC COMPLETE BLD COUNT 2021-10-14 10:18:00 Ten Dominguez [facility] [place] W/AUTO DIFF BASIC METABOLIC PANEL 2021-10-14 10:18:00 Ten Dominguez [facility] [place] ESTIMATED GFR 2021-10-14 10:18:00 Ten Dominguez Ho spital HEMODIALYSIS 2021-10-13 11:30:47 Jesse Cardenas Ho spital HC COMPLETE BLD COUNT 2021-10-13 09:41:00 [facility] W/AUTO DIFF COMPREHENSIVE METABOLIC 2021-10-13 09:41:00 [facility] PANEL ESTIMATED GFR 2021-10-13 09:41:00 Ten Dominguez Islam spital XR ANKLE 3+ VW RIGHT 2021-10-12 18:36:35 [facility] COVID-19 ANTI-SPIKE IGG 2021-10-12 10:15:00 [place] ANTIBODY TITER Mario HC COMPLETE BLD COUNT 2021-10-12 10:15[facility] W/AUTO DIFF BASIC METABOLIC PANEL 2021-10-12 10:15:00 [facility] COVID-19 SEROLOGY 2021-10-12 10:15:00 [facility] PATIENT SURVEILLANCE Mario ESTIMATED GFR 2021-10-12 10:15:00 Ten Dominguez Islam spital HEPATITIS B SURFACE 2021-10-11 18:49:[address] [facility] ANTIGEN SEDIMENTATION RATE 2021-10-11 15:43:00 [facility] C-REACTIVE PROTEIN 2021-10-11 15:43:00 [facility] HEMODIALYSIS 2021-10-11 15:00:06 Jesse Cardenas spital LACTIC ACID LEVEL, 2021-10-11 09:42:00 Tadeo Muñiz [facility] SEPSIS - NOW AND REPEAT 2X EVERY 3 HOURS MRSA PCR 2021-10-11 09:40:[address] LOWER EXTREMITY WO 2021-10-11 04:21:33 Tadeo Muñiz [facility] CONTRAST RIGHT BLOOD CULTURE, AEROBIC & 2021-10-11 02:27:00 Tadeo Muñiz [facility] ANAEROBIC COVID-19 QUALITATIVE 2021-10-11 02:26:00 [facility] RT-PCR HC COMPLETE BLD COUNT 2021-10-11 02:26:00 [facility] W/AUTO DIFF COMPREHENSIVE METABOLIC 2021-10-11 02:26:00 [facility] PANEL LACTIC ACID LEVEL, 2021-10-11 02:26:00 [facility] SEPSIS - NOW AND REPEAT 2X EVERY 3 HOURS ESTIMATED GFR 2021-10-11 02:26:00 [facility] XR KNEE 4+ VW RIGHT 2021-10-09 16:06:00 Daphnie Keene [facility] Plan of Care Planned Activity Planned Date Details Comments Source Future Scheduled 2022-04-30 HEPATITIS B VACCINES [facility] Test 00:28:55 (1 of 3 - 3-dose series) [code = HEPATITIS B VACCINES (1 of 3 - 3-dose series)] Future Scheduled 2022-04-30 COVID-19 VACCINE (#1) [facility] Test 00:28:55 [code = COVID-19 VACCINE (#1)] Future Scheduled 2022-04-30 Pneumococcal Vaccine: [facility] Test 00:28:55 Pediatrics (0 to 5 Years) and At-Risk Patients (6 to 64 Years) (1 - PCV) [code = Pneumococcal Vaccine: Pediatrics (0 to 5 Years) and At-Risk Patients (6 to 64 Years) (1 - PCV)] Future Scheduled 2022-04-30 Hepatitis C screening [facility] Test 00:28:55 (procedure) [code = 088957552] Future Scheduled 2022-04-30 Screening for [facility] Test 00:28:55 malignant neoplasm of cervix (procedure) [code = 327301395] Future Scheduled 2022-04-30 BREAST CANCER [facility] Test 00:28:55 SCREENING [code = BREAST CANCER SCREENING] Future Scheduled 2022-04-30 INFLUENZA VACCINE [facility] Test 00:28:55 [code = INFLUENZA VACCINE] Encounters Start End Encounter Admission Attending Care Care Encounter Source Date/Time Date/Time Type Type Clinicians Facility Department ID 2018-10-18 Inpatient JESUS WAGONER [facility] [id number] [facility] 08:59:05 2021-10-10 2021-10-16 [facility] Tadeo Muñiz 1.2.840.1 [id number] Methodi 17:15:00 19:28:00 Encounter Jesse Cardenas [id number] 3.430.2.7 Hospit a .3.592620 l .8 2021-10-10 2021-10-16 Inpatient [facility] [id number] [place] [address] 00:00:00 00:00:[address] JESSE [address] 2021-10-10 2021-10-10 Travel 1.2.840.1 [id number] [id number] Methodi 00:00:00 00:00:[id number] 3.430.2.7 0.2.7.3.698 Ho spita .3.495378 084.8 l .8 2021-10-09 2021-10-09 [facility] 1.2.840.114 [id number] [facility] 10:53:46 14:27:00 Encounter Daphnie SPECIALTY [id number] [facility] 4.2.7.2.686 [facility] AT [id number] Wy ousmane ROSE [address] [facility] 2021-10-09 2021-10-09 [facility] [id number] Univers 11:10:00 11:30:52 DAPHNIE wilkins [facility] 2021-10-09 2021-10-09 Office [facility] [id number] [id number] Univers 11:10:00 11:30:52 Visit Daphnie SPECIALTY [id number] [facility] 4.2.7.2.686 [facility] AT [phone] Wy ousmane ROSE 198 [facility] 2021-10-09 2021-10-09 Outpatient [facility] [id number] Univers 11:10:00 11:30:52 DAPHNIE wilkins [facility] 2021-08-04 2021-08-04 Outpatient [facility] [id number] [facility] Univers 09:30:00 09:30:00 SENDIL ity [facility] 2021-08-04 2021-08-04 Outpatient R DARON [facility] [id number] Univers 09:30:00 09:30:00 SENDIL ity [facility] 2021-06-02 2021-06-02 [facility] 1.2.840.114 [id number] Univers 09:00:00 09:20:59 Visit Sendil Stephanie FROST 350.1.13.10 ity [facility] 4.2.7.2.686 [place] SHE[place] [id number] [facility] 059 Branch [facility] 2021-06-02 2021-06-02 [facility] [id number] Univers 09:00:00 09:20:59 [facility] 2021-06-02 2021-06-02 [facility] [id number] Univers 09:00:00 09:00:00 [facility] 2021-05-26 2021-05-26 [facility] [id number] Univers 07:19:00 08:03:00 GLORIA ity [facility] 2021-05-26 2021-05-26 [facility] 1.2.840.114 [id number] Univers 07:19:00 08:03:00 Encounter Gloria ICAL 350.1.13.10 ity of SCIENCES 4.2.7.2.686 Jeff as BLDG [id number] [address] 2021-05-26 2021-05-26 Surgery Motility, [facility] 1.2.840.114 [id number] Univers 07:00:00 07:35:00 Endoscopy ICAL 350.1.13.10 ity of SCIENCES 4.2.7.2.686 Jeff as BLDG [id number] [facility] 020 [place] 2021-05-26 2021-05-26 Orders Doctor LEE 1.2.840.114 [id number] Univers 00:00:00 00:00:00 Only Unassigned, KIMMIE 350.1.13.10 [facility] 4.2.7.2.686 Jeff as [id number] [facility] 009 Branch 2021-05-21 2021-05-21 Telephone Jesus [facility] 1.2.056.957 [id number] Univers 00:00:00 00:00:00 Ryan SPECIALTY 350.1.13.10 ity of [facility] 4.2.7.2.686 Jeff as CENTER AT [id number] Wy ousmane ROSE 0[address] [facility] 2021-05-20 2021-05-20 Outpatient R MIRI [facility] [id number] Univers 11:03:49 23:59:00 GLORIA wilkins [facility] 2021-05-20 2021-05-20 [facility] [id number] Univers 11:03:49 23:59:00 Encounter Gloria FROST 350.1.13.10 ity of [place] 4.2.7.2.686 [place] [facility] [id number] [facility] 807 [place] 2021-05-20 2021-05-20 Case Glass, JESUS 1.2.840.114 [id number] Univers 00:00:00 00:00:00 Management Gloria JUAREZY 350.1.13.10 ity of [facility] 4.2.7.2.686 Jeff as [id number] [facility] 046 [place] 2021-05-19 2021-05-19 [facility] [id number] Univers 07:30:00 08:30:00 GLORIA wilkins [facility] 2021-05-19 2021-05-19 [facility] 1.2.840.114 [id number] Univers 07:30:00 08:30:00 Encounter Gloria GARDINER 350.1.13.10 ity of [facility] 4.2.7.2.686 Jeff as BLDG [id number] [facility] 020 [place] 2021-05-19 2021-05-19 [facility] [id number] Univers 07:30:00 08:30:00 GLORIA wilkins [facility] 2021-05-19 2021-05-19 Surgery Motility, [facility] 1.2.840.114 [id number] Univers 07:30:00 08:00:00 Endoscopy ICAL 350.1.13.10 ity of [place]ENC[place] 4.2.7.2.686 Jeff as BLDG [id number] [facility] 020 Branch 2021-05-19 2021-05-19 Orders Doctor JESUS 1.2.840.114 [id number] Univers 00:00:00 00:00:00 Only Unassigned, KIMMIE 350.1.13.10 [facility] 4.2.7.2.686 Jeff as [id number] [facility] 009 Branch 2021-05-02 2021-05-02 Transition VIKRAM Shaw 1.2.840.114 [id number] Univers 00:00:00 00:00:00 of Care Martha LOMBARDIY 350.1.13.10 it y [place]2.686 [place] [id number] [facility] 403 Branch 2021-04-28 2021-05-01 Inpatient X [facility] ITZEL [id number] Univers 19:38:00 20:30:00 FABRIZIO wilkins of [facility] 2021-04-28 2021-05-01 [facility] Gabriellesukiubaldo Raymondelke Rufino FERRARIROCIO 1.2.840. 114 [id number] Univers 19:38:00 20:30:00 Encounter Fabrizio Colindres 350.1.13.10 ity of [facility] 4.2.7.2.686 [place] [id number] [facility] 096 Branch 2021-04-28 2021-05-01 Inpatient X ABBI [facility] ITZEL [id number] Univers 19:38:00 20:30:00 FABRIZIO wilkins of [facility] 2021-04-30 2021-04-30 Surgery Glass, [facility] 1.2.840.114 [id number] Univers 11:30:00 12:25:00 Gloria ZULEYKA 350.1.13.10 it y of [place]ENC[place] 4.2.7.2.686 Jeff as BLDG [id number] [facility] 020 Branch 2021-04-29 2021-04-29 Surgery Miri [facility] 1.2.840.114 [id number] Univers 12:00:00 12:32:00 Gloria GARDINER 350.1.13.10 it y of [place]ENC[place] 4.2.7.2.686 Jeff as BLDG [id number] [facility] 020 Branch 2021-04-28 2021-04-28 Transition VIKRAM Shaw 1.2.840.114 [id number] Univers 00:00:00 00:00:00 of Evelyn ARREDONDO 350.1.13.10 it [place] [id number] [facility] 403 Branch 2021-04-23 2021-04-25 Outpatient [facility] ITZEL [id number] Univers 16:15:00 16:40:00 [facility] 2021-04-23 2021-04-25 Outpatient X [facility] [id number] Univers 16:15:00 16:40:00 [facility] 2021-04-23 2021-04-25 Emergency Kadi Sadie R [facility] 1.2.840. 114 [id number] Univers 16:15:00 16:40:00 Chantel Jessiemarietta FROST 350.1.13.10 ity of [place] 4.2.7.2.686 [place] C[place] [id number] [facility] 081 Branch 2021-04-24 2021-04-24 Surgery Charvanessa [facility] 1.2.840.114 [id number] Univers 13:45:00 14:20:00 Leatha guerra 350.1.13.10 ity of [place] 4.2.7.2.686 [place] SURGICAL [id number] [facility] 020 Branch 2021-04-23 2021-04-23 Orders Doctor LEE 1.2.840.114 [id number] Univers 00:00:00 00:00:00 Only Unassigned, KIMMIE 350.1.13.10 ity of [place] [facility] 4.2.7.2.686 Jeff as [id number] [address] 2021-04-19 2021-04-19 Outpatient R ABHILASH, [facility] [id number] Univers 12:20:00 12:20:00 IQRA marietta [facility] 2021-04-19 2021-04-19 Urgent Abhilash [facility] 1.2.840.114 [id number] Univers 11:56:56 12:11:50 Care [facility] 350.1.13.10 it y [facility] 4.2.7.2.686 Jeff as Gerard?Blea [id number] Wy ousmane [address] Medical Office Building 2020-05-31 2020-05-31 Outpatient VALERIO, [facility] [id number] [facility] 13:30:00 23:59:00 VALENTINA 2020-03-06 2020-03-06 Outpatient AMARIS, [facility] CAR [address] [facility] 11:38:00 11:38:00 CARMEL 2020-02-05 2020-02-05 Outpatient AMARIS, [facility] CAR 7500 [facility] 08:09:00 23:59:00 CARMEL 2020-01-24 2020-01-[address] [facility] CAR [address] [facility] 08:53:00 08:53:00 GUTIERREZ DAILY 2018-10-19 2018-10-19 Outpatient [facility] [id number] [facility] 08:08:00 08:08:00 Results Test Description Test Time Test Comments Results Result Comments Source SARS-CoV-2 (COVID-19) RNA [Presence] in Respiratory sp ecimen by 2021-10-11 00:43:08 ROXANN with probe detection Test Item Value Reference Range Interpretation Comme nts SARS-CoV-2 (COVID-19) RNA [Presence] in Respiratory specimen by Not detected ROXANN with probe detection (test code = 96813-6) Whether patient is employed in a healthcare setting (test code = Un known 19104-0) Whether the patient has symptoms related to condition of interest U nknown (test code = 30475-3) Whether the patient was hospitalized for condition of interest Unkn own (test code = 15446-7) Whether the patient was admitted to intensive care unit (ICU) for U nknown condition of interest (test code = 06653-4) Whether patient resides in a congregate care setting (test code = U nknown 76227-7) status (test code = 67274-2) Unknown Date and time of symptom onset (test code = 17886-4) Unknown GUZMAN JERARDO VIERA
[2022-05-03] MEDS ORDERED: HYDROCODONE/APAP 5/325 MG TAB ONE (16:31)
[2022-05-03] MEDS ORDERED: ACETAMINOPHEN 325 MG TABLET ONE (16:31)
[2022-05-03 16:56] LABS: SARS-CoV-2 Antigen Rapid Res Negative (Negative)
--- NOTE | 2022-05-03 17:23 | EDPHYS ---
Physician Documentation [facility] Name: Puja Miner Age: 42 yrs Sex: Female : 1980 Arrival Date: 05/03/2022 Time: 15:55 Bed 13 Private MD: ED Physician Reinier Lucia HPI: 05/03 16:44 This 42 yrs old Female presents to ER via Ambulatory with complaints of Cough, snw Fever, Chills, Headache. 16:44 The patient or guardian reports flu symptoms, low-grade fever, myalgias, no appetite. snw Onset: The symptoms/episode began/occurred suddenly. Severity of symptoms: At their worst the symptoms were moderate, severe, in the emergency department the symptoms are unchanged. Associated signs and symptoms: Pertinent positives: fever, nausea, sore throat. It is unknown whether or not the patient has had similar symptoms in the past. dialysis yesterday. 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 - Social history:: Smoking status: Patient denies any tobacco usage or history of. ROS: 16:42 Eyes: Negative for injury, pain, redness, and discharge, ENT: Negative for injury, snw pain, and discharge, Neck: Negative for injury, pain, and swelling, Cardiovascular: Negative for chest pain, palpitations, and edema, Respiratory: Negative for shortness of breath, cough, wheezing, and pleuritic chest pain, Abdomen/GI: Negative for abdominal pain, nausea, vomiting, diarrhea, and constipation, Back: Negative for injury and pain, : Negative for injury, bleeding, discharge, and swelling. 16:42 Skin: Negative for injury, rash, and discoloration, Neuro: Negative for headache, weakness, numbness, tingling, and seizure, Psych: Negative for depression, anxiety, suicide ideation, homicidal ideation, and hallucinations. 16:42 Constitutional: Positive for chills, fever, malaise, poor PO intake. 16:42 Constitutional: Positive for Exam: 16:41 Head/Face: Normocephalic, atraumatic. Eyes: Pupils equal round and reactive to light, snw extra-ocular motions intact. Lids and lashes normal. Conjunctiva and sclera are non-icteric and not injected. Cornea within normal limits. Periorbital areas with no swelling, redness, or edema. 16:41 Neck: Trachea midline, no thyromegaly or masses palpated, and no cervical lymphadenopathy. Supple, full range of motion without nuchal rigidity, or vertebral point tenderness. No Meningismus. Chest/axilla: Normal chest wall appearance and motion. Nontender with no deformity. No lesions are appreciated. 16:41 Respiratory: Lungs have equal breath sounds bilaterally, clear to auscultation and percussion. No rales, rhonchi or wheezes noted. No increased work of breathing, no retractions or nasal flaring. Abdomen/GI: Soft, non-tender, with normal bowel sounds. No distension or tympany. No guarding or rebound. No evidence of tenderness throughout. Back: No spinal tenderness. No costovertebral tenderness. Full range of motion. Skin: Warm, dry with normal turgor. Normal color with no rashes, no lesions, and no evidence of cellulitis. MS/ Extremity: Pulses equal, no cyanosis. Neurovascular intact. Full, normal range of motion. Neuro: Awake and alert, GCS 15, oriented to person, place, time, and situation. Cranial nerves II-XII grossly intact. Motor strength 5/5 in all extremities. Sensory grossly intact. Cerebellar exam normal. Normal gait. Psych: Awake, alert, with orientation to person, place and time. Behavior, mood, and affect are within normal limits. 16:41 Constitutional: The patient appears alert, awake, anxious, febrile, restless, uncomfortable. 16:41 ENT: TM's: are normal, Nose: is normal, Mouth: is normal, Posterior pharynx: erythema, that is moderate. 16:41 Cardiovascular: Rate: tachycardic, Heart sounds: murmur. Vital Signs: 15:57 BP 182 / 112; Pulse 102; Resp 16; Temp 99(TE); Pulse Ox 95% on R/A; Weight 81.65 kg; hb Height 5 ft. (152.40 cm); Pain 3/10; 16:30 BP 180 / 98; Pulse 98; Resp 18; Pulse Ox 95% on R/A; db 15:57 Body Mass Index 35.15 (81.65 kg, 152.40 cm) hb MDM: 16:05 Patient medically screened. snw 17:23 Data reviewed: vital signs, nurses notes. Data interpreted: Pulse oximetry: on room air snw is 95 %. Interpretation: acceptable. Counseling: I had a detailed discussion with the patient and/or guardian regarding: the historical points, exam findings, and any diagnostic results supporting the discharge/admit diagnosis, the presence of at least one elevated blood pressure reading (>120/80) during this emergency department visit, lab results, the need for outpatient follow up, to return to the emergency department if symptoms worsen or persist or if there are any questions or concerns that arise at home. Special discussion: I have referred the patient to see his PCP for further evaluation of high blood pressure. Based on the history and exam findings, there is no indication for further emergent testing or inpatient evaluation. I discussed with the patient/guardian the need to see the primary care provider for further evaluation of the symptoms. 05/03 16:02 Order name: Flu; Complete Time: 17:20 snw 05/03 16:02 Order name: SARS RAPID; Complete Time: 16:59 snw Administered Medications: 16:17 CANCELLED (Other Intervention Used): Tylenol 1000 mg PO once snw 16:30 Drug: HYDROcodone-acetaminophen 5 mg-325 mg 1 tabs Route: PO; db 17:20 Follow up: Response: No adverse reaction; RASS: Alert and Calm (0) em6 16:30 Drug: Tylenol 650 mg Route: PO; db 17:20 Follow up: Response: No adverse reaction em6 Disposition: 17:14 Co-signature as Attending Physician, Reinier OSBORN was immediately available onsite ms3 in the emergency department for consultation in the care of the patient. Disposition Summary: 05/03/22 17:22 Discharge Ordered Location: Home snw Condition: Stable snw Diagnosis - Acute upper respiratory infection, unspecified snw Followup: snw - With: Emergency Department - When: As needed - Reason: Worsening of condition Followup: snw - With: Private Physician - When: 1 - 2 days - Reason: Recheck today's complaints, Continuance of care, Re-evaluation by your physician Discharge Instructions: - Discharge Summary Sheet snw - Fever, Adult snw - Upper Respiratory Infection, Adult snw - Viral Respiratory Infection snw Forms: - Medication Reconciliation Form snw - Thank You Letter snw - Antibiotic Education snw - Prescription Opioid Use snw Prescriptions: - Zyrtec 10 mg Oral Tablet - take 1 tablet by ORAL route once daily As needed; 20 tablet; Refills: 0, snw Product Selection Permitted - Pepcid 20 mg Oral Tablet - take 1 tablet by ORAL route once daily; 20 tablet; Refills: 0, Product snw Selection Permitted - promethazine 25 mg Oral Tablet - take 1 tablet by ORAL route every 6 hours As needed; 20 tablet; Refills: 0, snw Product Selection Permitted Signatures: Dispatcher [employer] EDMS Padmini Bradley, LAWN MAINTENANCE WORKER-C LAWN MAINTENANCE WORKER-Csnw Sarina Salamanca, RN RN Reinier Lucia DO DO ms3 Anastacia Roche RN RN db Meenakshi Delgado RN em6 Corrections: (The following items were deleted from the chart) 16:17 16:16 Tylenol 1000 mg PO once ordered. snw snw
--- NOTE | 2022-05-03 17:23 | ER ---
Nurse's Notes [facility] Name: Puja Miner Age: 42 yrs Sex: Female : 1980 Arrival Date: 05/03/2022 Time: 15:55 Bed 13 Private MD: Diagnosis: Acute upper respiratory infection, unspecified Presentation: 05/03 15:57 Chief complaint: Cough, subjective fever, body aches, chills, and headache x 5 days. hb Vomit x 1 today. Coronavirus screen: At this time, the client does not indicate any symptoms associated with coronavirus-19. Ebola Screen: No symptoms or risks identified at this time. Initial Sepsis Screen: Does the patient meet any 2 criteria? No. Patient's initial sepsis screen is negative. Does the patient have a suspected source of infection? No. Patient's initial sepsis screen is negative. Risk Assessment: Do you want to hurt yourself or someone else? Patient reports no desire to harm self or others. Onset of symptoms was April 29, 2022. 15:57 Method Of Arrival: Ambulatory hb 15:57 Acuity: KATHRYN 3 hb Triage Assessment: 15:57 General: Appears in no apparent distress. Behavior is calm, cooperative. Neuro: Level hb of Consciousness is awake, alert, obeys commands. Cardiovascular: Patient's skin is warm and dry. Respiratory: Respiratory effort is even, unlabored, Respiratory pattern is regular, symmetrical. 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 - Social history:: Smoking status: Patient denies any tobacco usage or history of. Screenin:00 Abuse screen: Denies threats or abuse. Nutritional screening: No deficits noted. em6 Tuberculosis screening: No symptoms or risk factors identified. Fall Risk Total Morgan Fall Scale indicates No Risk (0-24 pts). Assessment: 16:30 Reassessment: Patient appears in no apparent distress at this time. Patient is alert, db oriented x 3, equal unlabored respirations, skin warm/dry/pink. patient states has cold like symptoms x 5 days. states is on dialysis. Pain: Complains of pain in face, congestion. Neuro: No deficits noted. Level of Consciousness is awake, alert, obeys commands, Oriented to person, place, time, situation, Appropriate for age. Cardiovascular: No deficits noted. Respiratory: No deficits noted. Respiratory: Airway is patent Trachea Respiratory effort is even, unlabored, Respiratory pattern is regular, symmetrical, Sputum is. GI: No deficits noted. No signs and/or symptoms were reported involving the gastrointestinal system. : No deficits noted. No signs and/or symptoms were reported regarding the genitourinary system. EENT: No deficits noted. No signs and/or symptoms were reported regarding the EENT system. Derm: No deficits noted. No signs and/or symptoms reported regarding the dermatologic system. Musculoskeletal: No deficits noted. No signs and/or symptoms reported regarding the musculoskeletal system. Vital Signs: 15:57 BP 182 / 112; Pulse 102; Resp 16; Temp 99(TE); Pulse Ox 95% on R/A; Weight 81.65 kg; hb Height 5 ft. (152.40 cm); Pain 3/10; 16:30 BP 180 / 98; Pulse 98; Resp 18; Pulse Ox 95% on R/A; db 15:57 Body Mass Index 35.15 (81.65 kg, 152.40 cm) hb ED Course: 15:55 Patient arrived in ED. rg4 15:56 Arm band placed on. hb 16:00 Padmini Bradley [facility]C [facility] snw 16:00 Reinier Lucia DO is Attending Physician. snw 16:00 Triage completed. hb 16:00 Bed in low position. Call light in reach. Side rails up X2. Pulse ox on. NIBP on. Warm em6 blanket given. 16:25 Anastacia Roche, RN is Primary Nurse. db 17:38 No provider procedures requiring assistance completed. Patient did not have IV access em6 during this emergency room visit. Administered Medications: 16:17 CANCELLED (Other Intervention Used): Tylenol 1000 mg PO once snw 16:30 Drug: HYDROcodone-acetaminophen 5 mg-325 mg 1 tabs Route: PO; db 17:20 Follow up: Response: No adverse reaction; RASS: Alert and Calm (0) em6 16:30 Drug: Tylenol 650 mg Route: PO; db 17:20 Follow up: Response: No adverse reaction em6 Medication: 17:38 VIS not applicable for this client. em6 Outcome: 17:22 Discharge ordered by MD. burgos 17:38 Discharged to home ambulatory. em6 17:38 Condition: stable 17:38 Discharge instructions given to patient, Instructed on discharge instructions, follow up and referral plans. medication usage, Demonstrated understanding of instructions, follow-up care, medications, Prescriptions given X 3. 17:41 Patient left the ED. em6 Signatures: Padmini Bradley, ZIPPER JOINER-C ZIPPER JOINER-Csnw Sarina Salamanca, RN RN hb Nicole Cole rg4 Meenakshi Delgado RN RN em6 Anastacia Roche RN RN db Corrections: (The following items were deleted from the chart) 16:01 15:57 BP 182 / 112; Pulse 102bpm; Resp 16bpm; Pulse Ox 100%; Temp 99F Temporal; 81.65 hb kg; Height 5 ft.; BMI: 35.1; Pain 3/10; hb
[2022-05-03 18:11] VITALS: BP 182/112; TEMP 99; O2SAT 95
== END 2022-05-03 17:41 | disposition home or self-care (01) ==
LOC: ER 15:53
DX: J06.9 Acute upper respiratory infection, unspecified (principal); Z20.822 Contact with and (suspected) exposure to COVID-19
CPT/HCPCS: 36415; 87804; 87811; 99283